=== PATIENT | male | born 1955 | race Caucasian/White ===

== ENCOUNTER 2021-09-25 10:25 | Inpatient (IN) | payer MEDICARE, SELFPAY ==
[2021-09-25] VITALS (7 sets, daily range): BP systolic 131–141; BP diastolic 60–80; PULSE 72–90; RESP 18–22; TEMP 36.4–36.8; O2SAT 92–97; BMI 50.6
--- NOTE | ~2021-09-25 | XR_ITS ---
EXAMINATION: XR CHEST CLINICAL INFORMATION: Hypoxia COMPARISON: Chest x-ray and CTA chest 05/22/2020 TECHNIQUE: Frontal view of the chest was obtained. FINDINGS: Cardiac silhouette is normal in size. Small to moderate right-sided pleural effusion with overlying airspace disease, suspected compressive atelectasis. There is good aeration of the left hemithorax. No left-sided pleural effusion. No pneumothorax bilaterally. Degenerative changes of the spine. XR/XR chest 1V IMPRESSION: [id number] right-sided pleural effusion.
--- NOTE | ~2021-09-25 | XR_ITS ---
EXAMINATION: XR CHEST CLINICAL INFORMATION: Question pneumonia. Worsening effusion. COMPARISON: 09/28/2021 TECHNIQUE: Frontal view of the chest was obtained with an apical lordotic projection. FINDINGS: Small right pleural effusion and associated right basilar opacity are unchanged as compared to prior. No new airspace consolidation. No pneumothorax. Cardiac silhouette is at the upper limits of normal in size. Pulmonary vasculature is normal. No acute osseous findings. Degenerative spondylosis is present in the thoracic spine. XR/XR chest 1V IMPRESSION: Persistent small right pleural effusion with associated right basilar opacity, not significantly changed from 09/28/2021.
--- NOTE | ~2021-09-25 | CT_ITS ---
EXAMINATION: CT CHEST WITHOUT CONTRAST CLINICAL INFORMATION: Hypoxia. Right pleural effusion. COMPARISON: Previous chest x-ray most recent from earlier the same day and chest CTA May 2020 TECHNIQUE: Multidetector volumetric CT imaging of the chest was done. Axial MIP volume rendering provided. Sagittal and coronal reformatted images were obtained. This CT examination was performed using dose optimization techniques as appropriate, variously including the following: *Automated exposure control *Adjustment of mA and/or kV according to patient size (this includes techniques or standardized protocols for targeted exams where dose is matched to indication/reason for exam; i.e. extremities or head) *Use of iterative reconstruction technique DLP: 507 mGy-cm FINDINGS: LUNGS: There is right middle and right lower lobe atelectasis/consolidation adjacent to the right pleural effusion. There is subsegmental atelectasis in the right upper lobe. There is a 3 mm peripheral or subpleural right upper lobe nodule axial image 24 series 5. MEDIASTINUM: The heart is enlarged. There is coronary artery calcification. There is no pericardial effusion. There are small mediastinal lymph nodes. PLEURA: There is a moderate-sized right pleural effusion. There is no left pleural effusion. AXILLA: No lymphadenopathy. UPPER ABDOMEN: Unremarkable. OSSEOUS STRUCTURES: There are degenerative changes of the spine. CT/CT chest wo con IMPRESSION: Enlarged heart. Coronary artery calcification. Moderate right pleural effusion. Right middle and lower lobe atelectasis/consolidation adjacent to the effusion.
--- NOTE | ~2021-09-25 | XR_ITS ---
EXAMINATION: XR CHEST CLINICAL INFORMATION: Endotracheal tube positioning. COMPARISON: Chest radiograph dated from 10/07/2021. TECHNIQUE: AP view of the chest was obtained. FINDINGS: The endotracheal tube terminates at 3 cm above the yue. An enteric tube terminates out of the [id number]. Stable appearance of the cardiomediastinal silhouette. Unchanged right lower lobe airspace opacities and small right pleural effusion. No pneumothorax. The left lung is clear. No acute osseous findings. XR/XR chest 1V IMPRESSION: Endotracheal tube terminates at 3 cm above the yue. Unchanged airspace opacities in the right lung base with stable small right pleural effusion.
--- NOTE | ~2021-09-25 | XR_ITS ---
EXAMINATION: XR CHEST CLINICAL INFORMATION: Line and tube placement. COMPARISON: Chest radiographs 10/03/2021, 09/28/2021 TECHNIQUE: Portable upright AP view of the chest was obtained. FINDINGS: ET tube is positioned approximately 6.3 cm above yue. There is an orogastric tube in the abdomen and extending beyond the inferior film [id number]. Pulmonary opacity right base with effusion similar to prior study. No interval new airspace opacity. Vascularity within normal. The cardiac and hilar and mediastinal contours and bony structures are stable. XR/XR chest 1V IMPRESSION: 1. ET tube 6.3 cm above yue. 2. Orogastric tube in abdomen. 3. Pulmonary opacity and right effusion stable.
--- NOTE | ~2021-09-25 | XR_ITS ---
EXAMINATION: XR CHEST CLINICAL INFORMATION: Hypoxia/hypercapnia COMPARISON: 09/25/2021 TECHNIQUE: Frontal view of the chest was obtained. FINDINGS: Lung volumes are symmetric. Redemonstrated small right pleural effusion with adjacent basilar opacity, mildly improved from prior. Left lung appears well-aerated. No evidence of pneumothorax. The cardiomediastinal contour is unremarkable. No acute osseous findings are seen. XR/XR chest 1V IMPRESSION: Small right pleural effusion and adjacent basilar opacity, mildly improved since 09/25/2021.
--- NOTE | ~2021-09-25 | US_ITS ---
EXAMINATION: US VENOUS ULTRASOUND WITH DOPPLER LOWER EXTREMITY, BILATERAL CLINICAL INFORMATION: Status post cardiac arrest. Assess for acute occult DVT. COMPARISON: Bilateral leg venous ultrasound with Doppler 09/29/2021. TECHNIQUE: Ultrasound of the deep veins is performed from the hip to the calf with compression sonography and color and pulse Doppler assessment. Spectral analysis with color-flow imaging is performed. Exam performed portably in the ICU. FINDINGS: RIGHT: There is normal venous compression and respiratory variation and augmented flow. The visualized common femoral vein, superficial femoral vein, profunda femoral vein, popliteal vein, and the trifurcation region shows no evidence of deep venous thrombosis. No popliteal fossa cyst. LEFT: There is normal venous compression and respiratory variation and augmented flow. The visualized common femoral vein, superficial femoral vein, profunda femoral vein, popliteal vein, and the trifurcation region shows no evidence of deep venous thrombosis. No popliteal fossa cyst. US/US venous duplex LE BI IMPRESSION: No DVT demonstrated in the bilateral lower extremity.
--- NOTE | ~2021-09-25 | US_ITS ---
EXAMINATION: US VENOUS ULTRASOUND WITH DOPPLER LOWER EXTREMITY, BILATERAL CLINICAL INFORMATION: Pain. Edema. COMPARISON: None TECHNIQUE: Ultrasound of the deep veins is performed from the hip to the calf with compression sonography and color and pulse Doppler assessment. Spectral analysis with color-flow imaging is performed. FINDINGS: Limited study due to body habitus. Bilateral peroneal veins not visualized in the calf. RIGHT: There is normal venous compression and respiratory variation and augmented flow. The visualized common femoral vein, superficial femoral vein, profunda femoral vein, popliteal vein, and the trifurcation region shows no evidence of deep venous thrombosis. Vascular flow in the posterior tibial vein of the calf. There is no significant popliteal fossa cyst. LEFT: There is normal venous compression and respiratory variation and augmented flow. The visualized common femoral vein, superficial femoral vein, profunda femoral vein, popliteal vein, and the trifurcation region shows no evidence of deep venous thrombosis. Vascular flow in the posterior tibial vein of the calf. There is no significant popliteal fossa cyst. If the patient's symptoms persist, followup ultrasound in 5 days 7 days might be of value to exclude proximal propagation from a non-visualized calf vein. US/US venous duplex LE BI IMPRESSION: No DVT demonstrated in the bilateral lower extremity.
--- NOTE | 2021-09-25 10:20 | ECG_ITS ---
Test Reason : HYPOGLYCIMIA Blood Pressure : / mmHG Vent. Rate : 072 BPM Atrial Rate : 072 BPM P-R Int : 196 ms QRS Dur : 102 ms QT Int : 424 ms P-R-T Axes : 033 063 055 degrees QTc Int : 464 ms Poor data quality Normal sinus rhythm Intra-ventricular conduction delay Low voltage QRS Abnormal ECG When compared with ECG of 22-MAY-2020 15:39, No significant change was found Heart rate has decreased Referred By: Alfredo Dunn Electronically Signed By:SALVATORE MONTELONGO MD
--- NOTE | 2021-09-25 10:27 | ED.AMS ---
HPI - Altered Mental Status General Chief Complaint: Altered Mental Status Stated Complaint: hypoglycemia Time Seen by Provider: 09/25/21 10:38 Source: EMS Mode of arrival: EMS Limitations: altered mental status History of Present Illness HPI narrative: This is a 66-day-old man that was brought ER by ambulance because altered mental status, was found hypoglycemic pre-hospital blood sugar 40s, he was given glucagon and dextrose IV. The pain ambulance he was also hypoxic initially was placed on 100% non-rebreather mask patient has history also of COPD O2 dependent on 2 L oxygen MD complaint: altered mental status Onset (ago): hour(s) (1) Timing confirmed by: family member Severity: moderate Consistency of symptoms: waxing and waning Context: diabetes Associated symptoms: denies other symptoms Treatments prior to arrival: glucose Related Data Home Medications Medication Instructions Recorded Confirmed aspirin 81 mg tablet,delayed 81 mg PO DAILY 09/25/21 09/25/21 release atorvastatin 20 mg tablet 1 tab PO BEDTIME 09/25/21 09/25/21 budesonide-formoterol HFA 80 2 puff PO BID 09/25/21 09/25/21 mcg-4.5 mcg/actuation aerosol inhaler (Symbicort) finasteride 5 mg tablet 1 tab PO DAILY 09/25/21 09/25/21 insulin glargine 100 unit/mL (3 34 unit SUBCUT BEDTIME 09/25/21 09/25/21 mL) subcutaneous pen (Lantus Solostar U-100 Insulin) insulin lispro 100 unit/mL See Rx Instructions .ROUTE .COMPLEX 09/25/21 09/25/21 subcutaneous pen ipratropium 0.5 mg-albuterol 3 mg 1 vial INHALATION QID 09/25/21 09/25/21 (2.5 mg base)/3 mL nebulization soln lisinopril 40 mg tablet 1 tab PO DAILY 09/25/21 09/25/21 metformin 1,000 mg tablet 1 tab PO BID 09/25/21 09/25/21 metoprolol succinate 25 mg 1 tab PO DAILY 09/25/21 09/25/21 tablet,extended release 24 hr potassium chloride 10 mEq 1 cap PO DAILY 09/25/21 09/25/21 capsule,extended release tamsulosin 0.4 mg capsule 2 cap PO BEDTIME 09/25/21 09/25/21 torsemide 20 mg tablet 3 tab PO BID 09/25/21 09/25/21 Allergies Allergy/AdvReac Type Severity Reaction Status Date / Time adhesive tape [ADHESIVE TAPE] Allergy Unknown RASH Unverified 07/29/20 14:39 Penicillins [PENICILLINS] Allergy Unknown RASH Unverified 07/29/20 14:39 Review of Systems Review of Systems: Yes all other systems are reviewed and are negative Constitutional: Constitutional: Denies fever(s), Denies frequent falls and Denies headache(s) ENT: Denies headache(s) Cardiovascular: Cardiovascular: Reports no additional cardiovascular complaints Respiratory: Respiratory: Reports no additional respiratory complaints Neurologic: Denies frequent falls and Denies headache(s) [facility] Past Medical History Attestation statement: The following information was validated with the patient. [facility] Narrative: DM;COPD 02 Dep Medical History CHF (congestive heart failure) Chronic respiratory failure with hypoxia, on home O2 therapy COPD (chronic obstructive pulmonary disease) Diabetes mellitus Hypertension Morbid obesity Social History Social History (Updated 09/25/21 @ 15:28 by Reji Ballard MD) Alcohol intake: never Patient Tobacco Use Status: Former Tobacco user Use of substances other than those prescribed or required for medical reasons: No Advance Directives: Yes Advance Directives Information Provided: Yes Advance Directives on File: No Physical Exam Vital Signs: Vital Signs: Last Vital Signs Temp 98.2 F 09/25/21 10:28 Pulse 72 09/25/21 10:28 Resp 22 H 09/25/21 10:28 BP 141/60 H 09/25/21 10:28 Pulse Ox 97 09/25/21 10:28 Oxygen Flow Rate 3 09/25/21 10:28 Body Mass Index 50.6 Const: Other: At this time the patient is doing much better he is awake and alert he is on 2 L oxygen is satting 92% General: cooperative Nutritional Appearance: well nourished Orientation/consciousness: patient oriented x3 HENMT: Head: Yes normal to inspection General nose exam: Normal external nose present Face and sinus: Yes normal facial exam Mouth: Normal oral and palatal mucosa present Eyes: General: appearance normal, both eyes and all related structures Neck: Neck: Yes normal visual inspection and Yes full ROM Chest: Chest palpation & inspection: normal inspection of the chest Resp: Effort & Inspection: normal respiratory effort Auscultation: clear to auscultation bilaterally Cardio: Jugular venous distension: no JVD Rate: regular rate Rhythm: regular rhythm GI: Inspection: Yes normal to inspection Palpation (GI): Soft to palpation, not firm, nontender and no guarding Skin: General skin exam: no rashes or lesions noted and elasticity normal Neuro: General: patient oriented x3 Course Reevaluation(s) Reevaluation #1: improved clinically ,appear weak and frail,w/u showed rt pleural effusion ,I think is very reasonable to observe the pt overnight give the episode of hypoglicemia,given the rt pleural effusion the high C02 MDM - Altered Mental Status Lab Data Result diagrams: 09/25/21 10:26 09/25/21 10:26 Labs: Lab Results 09/25/21 09/25/21 09/25/21 Range/Units 10:15 10:26 10:26 WBC 7.1 (4.8-10.8) X10*3/uL RBC 3.83 L (4.60-5.80) X10*6/uL Hgb 10.6 L (14.0-18.0) g/dl Hct 35.3 L (42.0-52.0) % MCV 92.2 (80.0-98.0) fL MCH 27.7 (27.0-33.0) pg MCHC 30.0 L (31.0-36.0) g/dl RDW 13.0 (11.0-16.0) % Plt Count 105 L (160-400) X10*3/uL MPV 11.5 (9.4-12.4) fL Immature Gran % (Auto) 0.4 (0.0-0.4) % Neut % (Auto) 77.9 H (45-73) % Lymph % (Auto) 10.4 L (20-40) % [place] % (Auto) 8.2 (2-11) % Eos % (Auto) 2.7 (0-4) % Baso % (Auto) 0.4 (0-2) % Lymph # (Auto) 0.7 L (1.2-4.9) X10*3/uL [place] # (Auto) 0.6 (0.1-1.2) X10*3/uL Eos # (Auto) 0.2 (0.0-0.4) X10*3/uL Baso # (Auto) 0.0 (0.0-0.2) X10*3/uL Abs Immat Gran (auto) 0.03 (0.00-0.03) X10*3/uL Absolute Neuts (auto) 5.5 (2.0-8.3) x10*3/uL Absolute Nucleated RBC 0.000 (0.0-0.012) X10*3/uL Nucleated RBC % (auto) 0.0 (0.0-0.2) /100WBC Smear Tech's Comments Not Reportable PT (9.9-13.0) SEC INR (0.9-1.1) APTT (24.1-38.0) SEC O2 Saturation % ABG pH at Pt Temp (7.35-7.45) ABG pH (Temp Correct) (7.35-7.45) ABG pCO2 at Pt Temp (32-45) mmHg ABG pCO2 (Temp Corrct (32-45) mmHg ABG pO2 at Pt Temp (83-108) mmHg ABG pO2 (Temp Correct (83-108) ABG HCO3 (22-26) mmol/L ABG Base Excess (Actual) mmol/L Sodium 144 (135-145) mmol/L Potassium 3.5 (3.3-5.1) mmol/L Chloride 87 L (96-108) mmol/L Carbon Dioxide 47 H* (22-29) mmol/L Anion Gap 14 (12-20) BUN 33 H (9-16) mg/dL Creatinine 1.07 (0.5-1.4) mg/dL Estim Creat Clear Calc 85.5 Estimated GFR > 60 POC Glucose 99 (60-115) mg/dL Random Glucose 110 (60-115) mg/dL Calcium 8.7 (8.4-10.2) mg/dL Total Bilirubin 0.4 (0.0-1.0) mg/dL AST 13 (5-37) U/L ALT 16 (0-40) U/L Alkaline Phosphatase 88 (39-117) U/L Troponin I High Sens (<3.5-35.0) ng/L Total Protein 6.1 L (6.5-8.0) g/dL Albumin 3.6 (3.5-5.0) g/dL Influenza Type A (PCR) (Negative) Influenza Type B (PCR) (Negative) RSV RNA Qual (PCR) (Negative) SARS-CoV-2 RNA (RT-PCR) (Negative) 09/25/21 09/25/21 09/25/21 Range/Units 10:26 12:03 12:08 WBC (4.8-10.8) X10*3/uL RBC (4.60-5.80) X10*6/uL Hgb (14.0-18.0) g/dl Hct (42.0-52.0) % MCV (80.0-98.0) fL MCH (27.0-33.0) pg MCHC (31.0-36.0) g/dl RDW (11.0-16.0) % Plt Count (160-400) X10*3/uL MPV (9.4-12.4) fL Immature Gran % (Auto) (0.0-0.4) % Neut % (Auto) (45-73) % Lymph % (Auto) (20-40) % [place] % (Auto) (2-11) % Eos % (Auto) (0-4) % Baso % (Auto) (0-2) % Lymph # (Auto) (1.2-4.9) X10*3/uL [place] # (Auto) (0.1-1.2) X10*3/uL Eos # (Auto) (0.0-0.4) X10*3/uL Baso # (Auto) (0.0-0.2) X10*3/uL Abs Immat Gran (auto) (0.00-0.03) X10*3/uL Absolute Neuts (auto) (2.0-8.3) x10*3/uL Absolute Nucleated RBC (0.0-0.012) X10*3/uL Nucleated RBC % (auto) (0.0-0.2) /100WBC Smear Tech's Comments PT (9.9-13.0) SEC INR (0.9-1.1) APTT (24.1-38.0) SEC O2 Saturation 94.0 % ABG pH at Pt Temp 7.41 (7.35-7.45) ABG pH (Temp Correct) 7.41 (7.35-7.45) ABG pCO2 at Pt Temp 91 H* (32-45) mmHg ABG pCO2 (Temp Corrct 90 H* (32-45) mmHg ABG pO2 at Pt Temp 75 L (83-108) mmHg ABG pO2 (Temp Correct 74 L (83-108) ABG HCO3 58 H (22-26) mmol/L ABG Base Excess (Actual) 27.9 mmol/L Sodium (135-145) mmol/L Potassium (3.3-5.1) mmol/L Chloride (96-108) mmol/L Carbon Dioxide (22-29) mmol/L Anion Gap (12-20) BUN (9-16) mg/dL Creatinine (0.5-1.4) mg/dL Estim Creat Clear Calc Estimated GFR POC Glucose (60-115) mg/dL Random Glucose (60-115) mg/dL Calcium (8.4-10.2) mg/dL Total Bilirubin (0.0-1.0) mg/dL AST (5-37) U/L ALT (0-40) U/L Alkaline Phosphatase (39-117) U/L Troponin I High Sens 8.5 (<3.5-35.0) ng/L Total Protein (6.5-8.0) g/dL Albumin (3.5-5.0) g/dL Influenza Type A (PCR) NEGATIVE (Negative) Influenza Type B (PCR) NEGATIVE (Negative) RSV RNA Qual (PCR) NEGATIVE (Negative) SARS-CoV-2 RNA (RT-PCR) NEGATIVE (Negative) 09/25/21 Range/Units 12:11 WBC (4.8-10.8) X10*3/uL RBC (4.60-5.80) X10*6/uL Hgb (14.0-18.0) g/dl Hct (42.0-52.0) % MCV (80.0-98.0) fL MCH (27.0-33.0) pg MCHC (31.0-36.0) g/dl RDW (11.0-16.0) % Plt Count (160-400) X10*3/uL MPV (9.4-12.4) fL Immature Gran % (Auto) (0.0-0.4) % Neut % (Auto) (45-73) % Lymph % (Auto) (20-40) % [place] % (Auto) (2-11) % Eos % (Auto) (0-4) % Baso % (Auto) (0-2) % Lymph # (Auto) (1.2-4.9) X10*3/uL [place] # (Auto) (0.1-1.2) X10*3/uL Eos # (Auto) (0.0-0.4) X10*3/uL Baso # (Auto) (0.0-0.2) X10*3/uL Abs Immat Gran (auto) (0.00-0.03) X10*3/uL Absolute Neuts (auto) (2.0-8.3) x10*3/uL Absolute Nucleated RBC (0.0-0.012) X10*3/uL Nucleated RBC % (auto) (0.0-0.2) /100WBC Smear Tech's Comments PT 11.8 (9.9-13.0) SEC INR 1.0 (0.9-1.1) APTT 40.4 H (24.1-38.0) SEC O2 Saturation % ABG pH at Pt Temp (7.35-7.45) ABG pH (Temp Correct) (7.35-7.45) ABG pCO2 at Pt Temp (32-45) mmHg ABG pCO2 (Temp Corrct (32-45) mmHg ABG pO2 at Pt Temp (83-108) mmHg ABG pO2 (Temp Correct (83-108) ABG HCO3 (22-26) mmol/L ABG Base Excess (Actual) mmol/L Sodium (135-145) mmol/L Potassium (3.3-5.1) mmol/L Chloride (96-108) mmol/L Carbon Dioxide (22-29) mmol/L Anion Gap (12-20) BUN (9-16) mg/dL Creatinine (0.5-1.4) mg/dL Estim Creat Clear Calc Estimated GFR POC Glucose (60-115) mg/dL Random Glucose (60-115) mg/dL Calcium (8.4-10.2) mg/dL Total Bilirubin (0.0-1.0) mg/dL AST (5-37) U/L ALT (0-40) U/L Alkaline Phosphatase (39-117) U/L Troponin I High Sens (<3.5-35.0) ng/L Total Protein (6.5-8.0) g/dL Albumin (3.5-5.0) g/dL Influenza Type A (PCR) (Negative) Influenza Type B (PCR) (Negative) RSV RNA Qual (PCR) (Negative) SARS-CoV-2 RNA (RT-PCR) (Negative) Imaging Data Chest x-ray: Radiologist's impression: CLINICAL INFORMATION: Hypoxia COMPARISON: Chest x-ray and CTA chest 05/22/2020 TECHNIQUE: Frontal view of the chest was obtained. FINDINGS: Cardiac silhouette is normal in size. Small to moderate right-sided pleural effusion with overlying airspace disease, suspected compressive atelectasis. There is good aeration of the left hemithorax. No left-sided pleural effusion. No pneumothorax bilaterally. Degenerative changes of the spine. XR/XR chest 1V IMPRESSION: [id number] right-sided pleural effusion. ? Dictated By: EMANUEL MAHONEY MD Signed By: <Electronically s ECG Data ECG #1: Attestation: I personally reviewed and interpreted this ECG as follows: ECG interpretation date: 09/25/21 ECG interpretation time: 11:48 Pacemaker model: nsr 72 no ischemic changes Attending Attestation NSR 80 no ischemic changes Discharge Plan Discharge Clinical Impression: Insulin adverse reaction, Pleural effusion on right, Hypoglycemia due to insulin Prescriptions: No Action potassium chloride 10 mEq capsule, extended release 1 cap PO DAILY RF: 0 atorvastatin 20 mg tablet 1 tab PO BEDTIME RF: 0 ipratropium-albuterol 0.5 mg-3 mg(2.5 mg base)/3 mL solution for nebulization 1 vial inhalation QID RF: 0 torsemide 20 mg tablet 3 tab PO BID RF: 0 tamsulosin 0.4 mg capsule 2 cap PO BEDTIME RF: 0 metformin 1,000 mg tablet 1 tab PO BID RF: 0 metoprolol succinate 25 mg tablet extended release 24 hr 1 tab PO DAILY RF: 0 lisinopril 40 mg tablet 1 tab PO DAILY RF: 0 finasteride 5 mg tablet 1 tab PO DAILY RF: 0 insulin lispro 100 unit/mL insulin pen See Rx Instructions .ROUTE .COMPLEX RF: 0 budesonide-formoterol [Symbicort] 80-4.5 mcg/actuation HFA aerosol inhaler 2 puff PO BID RF: 0 Lantus Solostar U-100 Insulin 100 unit/mL (3 mL) insulin pen 34 unit subcut BEDTIME RF: 0 aspirin 81 mg Tablet,Delayed Release (Dr/Ec) 81 mg PO DAILY RF: 0
[2021-09-25 10:36] LABS: Basophils Percent Auto 0.4 % (0-2); Hemoglobin 10.6 g/dl (14.0-18.0); MANUAL DIFF FLAG SCAN; PLT CLUMP 1; SCAN SMEAR FLAG 1
[2021-09-25 10:38] LABS: Eosinophils Absolute Auto 0.2 X10*3/uL (0.0-0.4); Eosinophils Percent Auto 2.7 % (0-4); Hematocrit 35.3 % (42.0-52.0); Imm Gran Abs Auto 0.03 X10*3/uL (0.00-0.03); Imm Gran Pct Auto 0.4 % (0.0-0.4); Lymphocytes Absolute Auto 0.7 X10*3/uL (1.2-4.9); Lymphocytes Percent Auto 10.4 % (20-40); Mean Corpuscular Hemoglobin 27.7 pg (27.0-33.0); Mean Corpuscular Volume 92.2 fL (80.0-98.0); Mean Platelet Volume 11.5 fL (9.4-12.4); Monocytes Absolute Auto 0.6 X10*3/uL (0.1-1.2); Monocytes Percent Auto 8.2 % (2-11); Neutrophils Absolute Auto 5.5 x10*3/uL (2.0-8.3); Neutrophils Percent Auto 77.9 % (45-73); Red Blood Count 3.83 X10*6/uL (4.60-5.80); White Blood Count 7.1 X10*3/uL (4.8-10.8)
[2021-09-25 10:41] LABS: Platelet Count 105 X10*3/uL (160-400)
[2021-09-25 11:34] LABS: Troponin-I High Sensitivity 8.5 ng/L (<3.5-35.0)
[2021-09-25 11:35] LABS: Alanine Aminotransferase 16 U/L (0-40); Albumin Level 3.6 g/dL (3.5-5.0); Alkaline Phosphatase 88 U/L (39-117); Anion Gap 14 (12-20); Aspartate Amino Transferase 13 U/L (5-37); Bilirubin Total 0.4 mg/dL (0.0-1.0); Blood Urea Nitrogen 33 mg/dL (9-16); Calcium 8.7 mg/dL (8.4-10.2); Carbon Dioxide 47 mmol/L (22-29); Chloride 87 mmol/L (96-108); Creatinine Clr Calc Pharmacy 85.5; Estimated Glomerular Filt Rate > 60; Glucose Random 110 mg/dL (60-115); Potassium 3.5 mmol/L (3.3-5.1); Sodium 144 mmol/L (135-145); Total Protein 6.1 g/dL (6.5-8.0)
[2021-09-25 11:49] LABS: Glucose, Whole Blood 99 mg/dL (60-115)
[2021-09-25 12:10] LABS: ABG Base Excess 27.9 mmol/L; ABG HCO3 58 mmol/L (22-26); ABG pCO2 91 mmHg (32-45); ABG pCO2 TC 90 mmHg (32-45); ABG pH 7.41 (7.35-7.45); ABG pH TC 7.41 (7.35-7.45); ABG pO2 75 mmHg (83-108); ABG pO2 TC 74 (83-108)
[2021-09-25 12:28] LABS: Prothrombin Time 11.8 SEC (9.9-13.0)
[2021-09-25 12:31] LABS: Partial Thromboplastin Time 40.4 SEC (24.1-38.0)
[2021-09-25 13:01] LABS: Influenza A PCR NEGATIVE (Negative); Influenza B PCR NEGATIVE (Negative); Resp Syncy Virus RNA Qual PCR NEGATIVE (Negative); SARS COV2 PCR INHOUSE NEGATIVE (Negative)
--- NOTE | 2021-09-25 15:24 | P.HPHOSP_ITS ---
History of Present Illness Date of Service: 09/25/21 Chief Complaint: ams 66M presented with AMS. patient had been feeling at baseline on day prior to presentation. he reports that he has been trying to eat less in order to lose weight. on night prior to presentation he took his lantus but did not eat nearly as much as he usually dose. the next morning his found him lethargic to the point where she had difficulty getting him to stay awake, so she called EMS, EMS found sugar to be 40, and patient hypoxic. they gave glucagon and oxygen. patient then became more alert. in ED found to have metabolic alkalosis with respiratory acidosis, ph 7.41, pco2 91, bicarb 47. CT chest showed Right sided atelectasis and effusion. Review of Systems Review of Systems: Constitutional: Denies fever, denies Chills Eyes: denies blurry vision ENT: denies sore throat CVS: denies chest pain Respiratory: Denies dyspnea GI: no abdominal pain : denies dysuria MSK: denies neck pain Skin: denies rash Neuro: denies specific motor weakness Psych: denies suicidal ideation Endocrine: denies heat/cold intolerance Hematologic: denies easy bleeding Allergy: denies hives [facility] [place] Medical History CHF (congestive heart failure) Chronic respiratory failure with hypoxia, on home O2 therapy COPD (chronic obstructive pulmonary disease) Diabetes mellitus Hypertension Morbid obesity Pertinent family history: denies CAD Social History (Updated 09/25/21 @ 15:28 by Reji Ballard MD) Alcohol intake: never Patient Tobacco Use Status: Former Tobacco user Use of substances other than those prescribed or required for medical reasons: No Advance Directives: Yes Advance Directives Information Provided: Yes Advance Directives on File: No Meds Allergies Allergy/AdvReac Type Severity Reaction Status Date / Time adhesive tape [ADHESIVE TAPE] Allergy Unknown RASH Unverified 07/29/20 14:39 Penicillins [PENICILLINS] Allergy Unknown RASH Unverified 07/29/20 14:39 Active Medications: Current Medications Acetazolamide (Acetazolamide Sodium 500 Mg Vial) 250 mg IVPUSH Q12H [facility] Pharmacy Consult (Consult Rx Perform Med Rec) 1 each MISCELLANE ONCE PRN PRN Reason: Consult order Home Medications Medication Instructions Recorded Confirmed Last Taken Type aspirin 81 mg tablet,delayed 81 mg PO DAILY 09/25/21 09/25/21 09/24/21 History release atorvastatin 20 mg tablet 1 tab PO BEDTIME 09/25/21 09/25/21 09/24/21 History budesonide-formoterol HFA 80 2 puff PO BID 09/25/21 09/25/21 09/24/21 History mcg-4.5 mcg/actuation aerosol inhaler (Symbicort) finasteride 5 mg tablet 1 tab PO DAILY 09/25/21 09/25/21 09/24/21 History insulin glargine 100 unit/mL (3 34 unit SUBCUT BEDTIME 09/25/21 09/25/21 09/24/21 History mL) subcutaneous pen (Lantus Solostar U-100 Insulin) insulin lispro 100 unit/mL See Rx Instructions .ROUTE .COMPLEX 09/25/21 09/25/21 09/24/21 History subcutaneous pen ipratropium 0.5 mg-albuterol 3 mg 1 vial INHALATION QID 09/25/21 09/25/21 09/24/21 History (2.5 mg base)/3 mL nebulization soln lisinopril 40 mg tablet 1 tab PO DAILY 09/25/21 09/25/21 09/24/21 History metformin 1,000 mg tablet 1 tab PO BID 09/25/21 09/25/21 09/24/21 History metoprolol succinate 25 mg 1 tab PO DAILY 09/25/21 09/25/21 09/24/21 History tablet,extended release 24 hr potassium chloride 10 mEq 1 cap PO DAILY 09/25/21 09/25/21 09/24/21 History capsule,extended release tamsulosin 0.4 mg capsule 2 cap PO BEDTIME 09/25/21 09/25/21 09/24/21 History torsemide 20 mg tablet 3 tab PO BID 09/25/21 09/25/21 09/24/21 History Physical Exam Vital Signs and Narrative: Vital Signs: Last Vital Signs Temp 98.2 F 09/25/21 10:28 Pulse 72 09/25/21 10:28 Resp 22 H 09/25/21 10:28 BP 141/60 H 09/25/21 10:28 Pulse Ox 97 09/25/21 10:28 Oxygen Flow Rate 3 09/25/21 10:28 Body Mass Index 50.6 General: no acute distress, obese HEENT: atraumatic, poor dentition Neck: thick, normal to visual inspection CVS: S1, S2, RRR, 3+ bilateral lower extremity edema Resp: diminshed right base, bilateral crackles Chest: non tender GI: soft, non tender, non distended : no CVA tenderness Skin: no rashes Extremities: 3+ edema Neuro: Oriented X3, grossly intact Psych: cooperative Results Labs CBC and Chem 7: 09/25/21 10:26 09/25/21 10:26 Labs: Laboratory Results - last 24 hr 09/25/21 09/25/21 09/25/21 10:15 10:26 10:26 MCV 92.2 MCH 27.7 MCHC 30.0 L RDW 13.0 Plt Count 105 L MPV 11.5 Immature Gran % (Auto) 0.4 Neut % (Auto) 77.9 H Lymph % (Auto) 10.4 L [place] % (Auto) 8.2 Eos % (Auto) 2.7 Baso % (Auto) 0.4 Lymph # (Auto) 0.7 L [place] # (Auto) 0.6 Eos # (Auto) 0.2 Baso # (Auto) 0.0 Abs Immat Gran (auto) 0.03 Absolute Neuts (auto) 5.5 Absolute Nucleated RBC 0.000 Nucleated RBC % (auto) 0.0 Smear Tech's Comments Not Reportable PT INR APTT O2 Saturation ABG pH at Pt Temp ABG pH (Temp Correct) ABG pCO2 at Pt Temp ABG pCO2 (Temp Corrct ABG pO2 at Pt Temp ABG pO2 (Temp Correct ABG HCO3 ABG Base Excess (Actual) Anion Gap 14 Estim Creat Clear Calc 85.5 Estimated GFR > 60 POC Glucose 99 Random Glucose 110 Calcium 8.7 Total Bilirubin 0.4 AST 13 ALT 16 Alkaline Phosphatase 88 Troponin I High Sens Total Protein 6.1 L Albumin 3.6 Influenza Type A (PCR) Influenza Type B (PCR) RSV RNA Qual (PCR) SARS-CoV-2 RNA (RT-PCR) 09/25/21 09/25/21 09/25/21 10:26 12:03 12:08 MCV MCH MCHC RDW Plt Count MPV Immature Gran % (Auto) Neut % (Auto) Lymph % (Auto) [place] % (Auto) Eos % (Auto) Baso % (Auto) Lymph # (Auto) [place] # (Auto) Eos # (Auto) Baso # (Auto) Abs Immat Gran (auto) Absolute Neuts (auto) Absolute Nucleated RBC Nucleated RBC % (auto) Smear Tech's Comments PT INR APTT O2 Saturation 94.0 ABG pH at Pt Temp 7.41 ABG pH (Temp Correct) 7.41 ABG pCO2 at Pt Temp 91 H* ABG pCO2 (Temp Corrct 90 H* ABG pO2 at Pt Temp 75 L ABG pO2 (Temp Correct 74 L ABG HCO3 58 H ABG Base Excess (Actual) 27.9 Anion Gap Estim Creat Clear Calc Estimated GFR POC Glucose Random Glucose Calcium Total Bilirubin AST ALT Alkaline Phosphatase Troponin I High Sens 8.5 Total Protein Albumin Influenza Type A (PCR) NEGATIVE Influenza Type B (PCR) NEGATIVE RSV RNA Qual (PCR) NEGATIVE SARS-CoV-2 RNA (RT-PCR) NEGATIVE 09/25/21 12:11 MCV MCH MCHC RDW Plt Count MPV Immature Gran % (Auto) Neut % (Auto) Lymph % (Auto) [place] % (Auto) Eos % (Auto) Baso % (Auto) Lymph # (Auto) [place] # (Auto) Eos # (Auto) Baso # (Auto) Abs Immat Gran (auto) Absolute Neuts (auto) Absolute Nucleated RBC Nucleated RBC % (auto) Smear Tech's Comments PT 11.8 INR 1.0 APTT 40.4 H O2 Saturation ABG pH at Pt Temp ABG pH (Temp Correct) ABG pCO2 at Pt Temp ABG pCO2 (Temp Corrct ABG pO2 at Pt Temp ABG pO2 (Temp Correct ABG HCO3 ABG Base Excess (Actual) Anion Gap Estim Creat Clear Calc Estimated GFR POC Glucose Random Glucose Calcium Total Bilirubin AST ALT Alkaline Phosphatase Troponin I High Sens Total Protein Albumin Influenza Type A (PCR) Influenza Type B (PCR) RSV RNA Qual (PCR) SARS-CoV-2 RNA (RT-PCR) Imaging Radiologist's Impressions: Impressions Chest X-Ray 09/25/21 10:19 IMPRESSION: [id number] right-sided pleural effusion. Chest CT 09/25/21 12:19 IMPRESSION: Enlarged heart. Coronary artery calcification. Moderate right pleural effusion. Right middle and lower lobe atelectasis/consolidation adjacent to the effusion. Assessment and Plan (1) Chronic respiratory failure with hypoxia, on home O2 therapy: Status: Acute (2) Morbid obesity: Status: Acute (3) Pleural effusion on right: Status: Acute (4) COPD (chronic obstructive pulmonary disease): Status: Acute (5) Diabetes mellitus: Status: Acute 66M presented with AMS metabolic encephalopathy due to DM with hypoglycemia and Co2 narcosis now close to baseline mointor poc, will do sliding scale alone for now acute on chronic hypoxic and hypercapneic respiratory failure due to copd and likely OHS patient does not tolerate NIV, will give diamox, monitor bmp, pulm eval inhaled steroid/LABA metabolic alkalosis due to contraction from diuretics will switch to diamox for now and gently hydrate with NS 50cc/hr, monitor bph proscar flomax htn lisinopril toprol right pleural effusion likely chronic, will obtain records from [facility] dvt prophylaxis - lovenox full code Quality Stroke Does the patient have a stroke diagnosis?: No VTE Prior VTE?: No VTE Risk Level:: Medical - moderate - high VTE Device Contraindication: Treatment Not Indicated VTE Drug Contraindication: N/A - Med Ordered
--- NOTE | 2021-09-25 15:27 | PHA.MEDREC ---
Pharmacy Consult ? Medication Reconciliation Pharmacy has completed the medication reconciliation. Spoke to patient and
[2021-09-25] MEDS: Aspirin Enteric Coated 81 MG TABLET.DR PO (16:08)
[2021-09-25] MEDS: lisinopriL 40 MG TABLET PO (16:08)
[2021-09-25] MEDS: Metoprolol Succinate ER 25 MG TAB.ER.24H PO (16:08)
[2021-09-25] MEDS: Enoxaparin Sodium 40 MG/0.4 ML SYRINGE SUBCUT (16:09)
[2021-09-25] MEDS: Finasteride 5 MG TABLET PO (16:14)
[2021-09-25] MEDS: Fluticasone/Vilanterol 100/25 BLST.W.DEV 1 PUFF INHALE (16:14)
[2021-09-25] MEDS: acetaZOLAMIDE sodium 500 MG VIAL 250 MG IVPUSH (16:14)
[2021-09-25] MEDS: Albuterol/Iprat 2.5/0.5MG 3 ML AMPUL.NEB INHALE ×2 (16:48→20:01)
[2021-09-25] MEDS: 0.9 % Sodium Chloride 1,000 ML 50 ML IVCONT (16:49)
--- NOTE | 2021-09-25 19:22 | PC.NURSE ---
Addendum entered by Surinder Cannon 09/25/21 19:37: PT POC obtained and found to be 56. PT found to be sitting on the side of the bed, complaining of shakiness and generally not feeling himself . PT provided with snacks and orange juice to help increase blood sugar. PT VSS, no other complaints at this time. Original Note: PT POC obtained and found to be 54. PT found to be sitting on the side of the bed, complaining of shakiness and generally not feeling himself . PT provided with snacks and orange juice to help increase blood sugar. PT VSS, no other complaints at this time.
--- NOTE | 2021-09-25 19:39 | PC.NURSE ---
PT not given insulin due to low blood sugar reading at 56.
[2021-09-25 19:40] LABS: Glucose, Whole Blood 56 mg/dL (60-115)
[2021-09-25 19:40] LABS: Glucose, Whole Blood 54 mg/dL (60-115)
[2021-09-25 20:19] LABS: Glucose, Whole Blood 107 mg/dL (60-115)
--- NOTE | 2021-09-25 20:20 | PC.NURSE ---
PT POC rechecked. POC found to be 107. PT is resting in bed comfortably, requesting a something to eat. This nurse tried to provide sandwich but none were available in the ED.
--- NOTE | 2021-09-25 22:02 | PC.NURSE ---
POC rechecked; 140 at this time.
[2021-09-25] MEDS: Tamsulosin HCL 0.4 MG CAPSULE 0.8 MG PO (22:03)
[2021-09-25] MEDS: Atorvastatin Calcium 20 MG TABLET PO (22:03)
[2021-09-25 22:08] LABS: Glucose, Whole Blood 140 mg/dL (60-115)
--- NOTE | 2021-09-25 22:49 | PC.NURSE ---
PT moving in and out of bed to use urinal. PT experienced decreased O2 sat when moving back into bed. O2 dropped down to 80% while on 3 L/min. PT monitored for a few minutes back in bed. O2 increased to 92% on 3 L/min O2.
[2021-09-26] VITALS (11 sets, daily range): BP systolic 110–144; BP diastolic 43–97; PULSE 76–88; RESP 18–20; TEMP 36.2–37.1; O2SAT 85–93; BMI 50.6
[2021-09-26] MEDS: acetaZOLAMIDE sodium 500 MG VIAL 250 MG IVPUSH ×3 (00:44→15:51)
[2021-09-26] MEDS: 0.9 % Sodium Chloride Flush 3 ML SYRINGE IVFLUSH ×4 (00:44→21:05)
[2021-09-26 00:49] LABS: Glucose, Whole Blood 138 mg/dL (60-115)
--- NOTE | 2021-09-26 02:00 | PC.NURSE ---
Pt wakes in bed, ringing call kelly, found laying in bed, struggling to get OOB himself. Adam RN at bedside, assisting pt up and into a standing position. Pt reporting SOB, states my right nostril is blocked, there is no oxygen getting through! O2 sat @ 85% on 3 lpm. O2 increased to 4 lpm, pt assisted into a sitting position on edge of bed, able to catch his breath, reports some relief of SOB, O2 sat increasing to 93%. Pt assisted back into bed into POC.
--- NOTE | 2021-09-26 02:06 | PC.NURSE ---
Addendum entered by Re Duran 09/26/21 02:25: Original note documented by RYAN Medina under RYAN Grimaldo by mistake. Original Note: PT rang call kelly and complaining of SOB while lying in bed. PT stated that he is able to catch his breath easier when he is sitting on the edge of the bed. PT was assisted to sit on the side of bed, O2 sat at 80% initially, oxygen increased to 4 L/min, O2 sat is currently at 93%. PT is requesting a recliner to help him breath more comfortably while trying to sleep.
--- NOTE | 2021-09-26 06:41 | PC.NURSE ---
Pt wakes in bed, ringing call bed. This nurse at bedside, pt states Can you check my blood sugar? I feel weird, I think my sugar is low or maybe I am just tired. POC noted to be 82 mg/dl. Pt sitting upright on the edge of bed, in POC, awaiting breakfast at this time.
[2021-09-26 06:42] LABS: Glucose, Whole Blood 82 mg/dL (60-115)
--- NOTE | 2021-09-26 06:49 | PC.NURSE ---
450 ml of UO noted in agar[place]. While eating/drinking, pt desatted to 88%, pt recovers quickly with rest. Awaiting breakfast.
[2021-09-26 06:53] LABS: PLT CLUMP 1
[2021-09-26 06:55] LABS: Hematocrit 36.9 % (42.0-52.0); Mean Corpuscular HGB Conc 29.8 g/dl (31.0-36.0); Mean Corpuscular Hemoglobin 26.8 pg (27.0-33.0); Mean Corpuscular Volume 89.8 fL (80.0-98.0); Mean Platelet Volume 11.8 fL (9.4-12.4); Platelet Count 116 X10*3/uL (160-400); Red Blood Count 4.11 X10*6/uL (4.60-5.80); Red Cell Distribution Width 13.2 % (11.0-16.0); White Blood Count 7.1 X10*3/uL (4.8-10.8)
[2021-09-26 07:21] LABS: Glucose, Whole Blood 95 mg/dL (60-115)
[2021-09-26 07:37] LABS: Anion Gap 11 (12-20); Blood Urea Nitrogen 30 mg/dL (9-16); Calcium 9.1 mg/dL (8.4-10.2); Carbon Dioxide 46 mmol/L (22-29); Chloride 89 mmol/L (96-108); Creatinine Clr Calc Pharmacy 88.8; Estimated Glomerular Filt Rate > 60; Glucose Fasting 94 mg/dL (60-99); Magnesium 2.2 mg/dL (1.6-2.6); Potassium 3.9 mmol/L (3.3-5.1); Sodium 143 mmol/L (135-145)
--- NOTE | 2021-09-26 07:39 | PC.NURSE ---
Addendum entered by Janeth العلي RN 09/26/21 07:53: correction carbon dioxide-46 Addendum entered by Janeth العلي RN 09/26/21 07:47: hr-80 rr-22 o2sat 89% on 4l nasal cannula. Original Note: Patient alert and oriented x 3. Patients o2sats 86-93% on 4 liters goes down with activity. Patient denies pain. Patient lives at home with his . bicarb just called at 47 MD aware. bp 107/81 right forearm. tele: sinus rythym report given to [facility] nurse. Will continue to monitor.
[2021-09-26 08:36] LABS: Glucose, Whole Blood 136 mg/dL (60-115)
--- NOTE | 2021-09-26 08:41 | MHC.CM.PN ---
CM met with Patient at bedside and addressed IMM, providing him with the original and placing a copy in the chart.Patient lives in a house with his , with 3 adult children living upstairs in the same house.Patient states that his /HCP/Maryann is his Primary Caregiver, who takes good care of him and he therefor does not request VNA.CM has initiated and will follow for dc planning.Patient has a walker, Patricia for O2 and PCP is DR.Antone Hill.
[2021-09-26 09:07] LABS: ABG HCO3 59 mmol/L (22-26); ABG pCO2 96 mmHg (32-45); ABG pCO2 TC 93 mmHg (32-45); ABG pH 7.39 (7.35-7.45); ABG pO2 66 mmHg (83-108); ABG pO2 TC 63 (83-108)
[2021-09-26] MEDS: Aspirin Enteric Coated 81 MG TABLET.DR PO (09:20)
[2021-09-26] MEDS: Finasteride 5 MG TABLET PO (09:20)
[2021-09-26] MEDS: Metoprolol Succinate ER 25 MG TAB.ER.24H PO (09:23)
[2021-09-26 09:33] LABS: ABG Refer to POC result
--- NOTE | 2021-09-26 10:23 | HO.PM.IMPN ---
Subjective Subjective Date of Service: 09/26/21 Interval History: cc: ams interval history: back to baseline Cardiovascular Cardiovascular: Reports no additional cardiovascular complaints Respiratory Respiratory: Reports no additional respiratory complaints Physical Exam Vital Signs: Vital Signs: Last Vital Signs Temp 98.6 F 09/26/21 08:00 Pulse 80 09/26/21 09:23 Resp 18 09/26/21 08:00 BP 119/64 09/26/21 09:23 Pulse Ox 90 L 09/26/21 08:00 Oxygen Flow Rate 3 09/25/21 10:28 Body Mass Index 50.6 General: AO X 3, mildly dyspneic Resp: Crackles bilateral, mild accessory muscles used CVS: S1,S2,RRR, 3+ edema GI: soft, non tender, non distended Neuro: motor grossly intact, alert Psych: appropriate affect, appropriate insight Objective Data Active Medications Acetaminophen (Acetaminophen 325 Mg Tablet) 650 mg PO Q6H PRN PRN Reason: Pain, Mild (Pain Scale 1-3) Acetazolamide (Acetazolamide Sodium 500 Mg Vial) 250 mg IVPUSH Q8H [facility] Last Admin: 09/26/21 09:15 Dose: 250 mg Documented by: CUCA Albuterol/Ipratropium (Albuterol/Iprat 2.5/0.5mg 3 Ml Ampul.Neb) 3 ml INHALE RQID [facility] Last Admin: 09/26/21 09:25 Dose: Not Given Documented by: CUCA Non-Admin Reason: off unit Aspirin (Aspirin Enteric Coated 81 Mg Tablet.) 81 mg PO DAILY [facility] Last Admin: 09/26/21 09:20 Dose: 81 mg Documented by: CUCA Atorvastatin Calcium (Atorvastatin Calcium 20 Mg Tablet) 20 mg PO BEDTIME [facility] Last Admin: 09/25/21 22:03 Dose: 20 mg Documented by: KIERAN Dextrose (Dextrose 50 % 25 Gm/50 Ml Vial) 25 gm IVPUSH Q15M PRN; Protocol PRN Reason: per Hypoglycemia Standing Ord. Enoxaparin Sodium (Enoxaparin Sodium 40 Mg/0.4 Ml Syringe) 40 mg SUBCUT Q24H [facility] Last Admin: 09/25/21 16:09 Dose: 40 mg Documented by: VINCENT Finasteride (Finasteride 5 Mg Tablet) 5 mg PO DAILY [facility] Last Admin: 09/26/21 09:20 Dose: 5 mg Documented by: CUCA Fluticasone/Vilanterol (Fluticasone/Vilanterol 100/25 Blst.W.Dev) 1 puff INHALE RDAILY [facility] Last Admin: 09/26/21 09:25 Dose: Not Given Documented by: CUCA Non-Admin Reason: off unit Glucose (Glucose Gel 15 Gm Gel..Gram.) 15 gm PO Q15M PRN; Protocol PRN Reason: per Hypoglycemia Standing Ord. Insulin Human Lispro (Insulin Lispro 100 Unit/Ml 3 Ml Vial) 0 unit SUBCUT QIDACHS [facility]; Protocol Last Admin: 09/26/21 07:30 Dose: Not Given Documented by: NARENDRA Non-Admin Reason: See Note Comments: poc 92 Metoprolol Succinate (Metoprolol Succinate Er 25 Mg Tab.Er.24h) 25 mg PO DAILY [facility]; Protocol Last Admin: 09/26/21 09:23 Dose: 25 mg Documented by: CUCA Pharmacy Consult (Consult Rx Perform Med Rec) 1 each MISCELLANE ONCE PRN PRN Reason: Consult order Potassium Chloride (Potassium Chloride Er 10 Meq Capsule.Er) 10 meq PO DAILY [facility] Last Admin: 09/26/21 09:20 Dose: 10 meq Documented by: CUCA Sodium Chloride (0.9 % Sodium Chloride Flush 3 Ml Syringe) 3 ml IVFLUSH QSHIFT [facility] Last Admin: 09/26/21 09:15 Dose: 3 ml Documented by: CUCA Tamsulosin HCl (Tamsulosin Hcl 0.4 Mg Capsule) 0.8 mg PO BEDTIME [facility] Last Admin: 09/25/21 22:03 Dose: 0.8 mg Documented by: KIERAN Labs CBC & Chem 7: 09/26/21 06:46 09/26/21 06:46 Labs: Laboratory Results - last 24 hr 09/25/21 09/25/21 09/25/21 10:15 10:26 10:26 MCV 92.2 MCH 27.7 MCHC 30.0 L RDW 13.0 Plt Count 105 L MPV 11.5 Immature Gran % (Auto) 0.4 Neut % (Auto) 77.9 H Lymph % (Auto) 10.4 L [place] % (Auto) 8.2 Eos % (Auto) 2.7 Baso % (Auto) 0.4 Lymph # (Auto) 0.7 L [place] # (Auto) 0.6 Eos # (Auto) 0.2 Baso # (Auto) 0.0 Abs Immat Gran (auto) 0.03 Absolute Neuts (auto) 5.5 Absolute Nucleated RBC 0.000 Nucleated RBC % (auto) 0.0 Smear Tech's Comments Not Reportable PT INR APTT O2 Saturation ABG pH at Pt Temp ABG pH (Temp Correct) ABG pCO2 at Pt Temp ABG pCO2 (Temp Corrct ABG pO2 at Pt Temp ABG pO2 (Temp Correct ABG HCO3 ABG Base Excess (Actual) Anion Gap 14 Estim Creat Clear Calc 85.5 Estimated GFR > 60 POC Glucose 99 Random Glucose 110 Fasting Glucose Calcium 8.7 Magnesium Total Bilirubin 0.4 AST 13 ALT 16 Alkaline Phosphatase 88 Troponin I High Sens Total Protein 6.1 L Albumin 3.6 Influenza Type A (PCR) Influenza Type B (PCR) RSV RNA Qual (PCR) SARS-CoV-2 RNA (RT-PCR) 09/25/21 09/25/21 09/25/21 10:26 12:03 12:08 MCV MCH MCHC RDW Plt Count MPV Immature Gran % (Auto) Neut % (Auto) Lymph % (Auto) [place] % (Auto) Eos % (Auto) Baso % (Auto) Lymph # (Auto) [place] # (Auto) Eos # (Auto) Baso # (Auto) Abs Immat Gran (auto) Absolute Neuts (auto) Absolute Nucleated RBC Nucleated RBC % (auto) Smear Tech's Comments PT INR APTT O2 Saturation 94.0 ABG pH at Pt Temp 7.41 ABG pH (Temp Correct) 7.41 ABG pCO2 at Pt Temp 91 H* ABG pCO2 (Temp Corrct 90 H* ABG pO2 at Pt Temp 75 L ABG pO2 (Temp Correct 74 L ABG HCO3 58 H ABG Base Excess (Actual) 27.9 Anion Gap Estim Creat Clear Calc Estimated GFR POC Glucose Random Glucose Fasting Glucose Calcium Magnesium Total Bilirubin AST ALT Alkaline Phosphatase Troponin I High Sens 8.5 Total Protein Albumin Influenza Type A (PCR) NEGATIVE Influenza Type B (PCR) NEGATIVE RSV RNA Qual (PCR) NEGATIVE SARS-CoV-2 RNA (RT-PCR) NEGATIVE 09/25/21 09/25/21 09/25/21 12:11 19:14 19:30 MCV MCH MCHC RDW Plt Count MPV Immature Gran % (Auto) Neut % (Auto) Lymph % (Auto) [place] % (Auto) Eos % (Auto) Baso % (Auto) Lymph # (Auto) [place] # (Auto) Eos # (Auto) Baso # (Auto) Abs Immat Gran (auto) Absolute Neuts (auto) Absolute Nucleated RBC Nucleated RBC % (auto) Smear Tech's Comments PT 11.8 INR 1.0 APTT 40.4 H O2 Saturation ABG pH at Pt Temp ABG pH (Temp Correct) ABG pCO2 at Pt Temp ABG pCO2 (Temp Corrct ABG pO2 at Pt Temp ABG pO2 (Temp Correct ABG HCO3 ABG Base Excess (Actual) Anion Gap Estim Creat Clear Calc Estimated GFR POC Glucose 54 L* 56 L* Random Glucose Fasting Glucose Calcium Magnesium Total Bilirubin AST ALT Alkaline Phosphatase Troponin I High Sens Total Protein Albumin Influenza Type A (PCR) Influenza Type B (PCR) RSV RNA Qual (PCR) SARS-CoV-2 RNA (RT-PCR) 09/25/21 09/25/21 09/26/21 20:15 21:57 00:43 MCV MCH MCHC RDW Plt Count MPV Immature Gran % (Auto) Neut % (Auto) Lymph % (Auto) [place] % (Auto) Eos % (Auto) Baso % (Auto) Lymph # (Auto) [place] # (Auto) Eos # (Auto) Baso # (Auto) Abs Immat Gran (auto) Absolute Neuts (auto) Absolute Nucleated RBC Nucleated RBC % (auto) Smear Tech's Comments PT INR APTT O2 Saturation ABG pH at Pt Temp ABG pH (Temp Correct) ABG pCO2 at Pt Temp ABG pCO2 (Temp Corrct ABG pO2 at Pt Temp ABG pO2 (Temp Correct ABG HCO3 ABG Base Excess (Actual) Anion Gap Estim Creat Clear Calc Estimated GFR POC Glucose 107 140 H 138 H Random Glucose Fasting Glucose Calcium Magnesium Total Bilirubin AST ALT Alkaline Phosphatase Troponin I High Sens Total Protein Albumin Influenza Type A (PCR) Influenza Type B (PCR) RSV RNA Qual (PCR) SARS-CoV-2 RNA (RT-PCR) 09/26/21 09/26/21 09/26/21 06:39 06:46 06:46 MCV 89.8 MCH 26.8 L MCHC 29.8 L RDW 13.2 Plt Count 116 L MPV 11.8 Immature Gran % (Auto) Neut % (Auto) Lymph % (Auto) [place] % (Auto) Eos % (Auto) Baso % (Auto) Lymph # (Auto) [place] # (Auto) Eos # (Auto) Baso # (Auto) Abs Immat Gran (auto) Absolute Neuts (auto) Absolute Nucleated RBC 0.000 Nucleated RBC % (auto) 0.0 Smear Tech's Comments PT INR APTT O2 Saturation ABG pH at Pt Temp ABG pH (Temp Correct) ABG pCO2 at Pt Temp ABG pCO2 (Temp Corrct ABG pO2 at Pt Temp ABG pO2 (Temp Correct ABG HCO3 ABG Base Excess (Actual) Anion Gap 11 L Estim Creat Clear Calc 88.8 Estimated GFR > 60 POC Glucose 82 Random Glucose Fasting Glucose 94 Calcium 9.1 Magnesium 2.2 Total Bilirubin AST ALT Alkaline Phosphatase Troponin I High Sens Total Protein Albumin Influenza Type A (PCR) Influenza Type B (PCR) RSV RNA Qual (PCR) SARS-CoV-2 RNA (RT-PCR) 09/26/21 09/26/21 09/26/21 07:15 08:33 09:01 MCV MCH MCHC RDW Plt Count MPV Immature Gran % (Auto) Neut % (Auto) Lymph % (Auto) [place] % (Auto) Eos % (Auto) Baso % (Auto) Lymph # (Auto) [place] # (Auto) Eos # (Auto) Baso # (Auto) Abs Immat Gran (auto) Absolute Neuts (auto) Absolute Nucleated RBC Nucleated RBC % (auto) Smear Tech's Comments PT INR APTT O2 Saturation 90.0 ABG pH at Pt Temp 7.39 ABG pH (Temp Correct) 7.40 ABG pCO2 at Pt Temp 96 H* ABG pCO2 (Temp Corrct 93 H* ABG pO2 at Pt Temp 66 L ABG pO2 (Temp Correct 63 L ABG HCO3 59 H ABG Base Excess (Actual) 28.0 Anion Gap Estim Creat Clear Calc Estimated GFR POC Glucose 95 136 H Random Glucose Fasting Glucose Calcium Magnesium Total Bilirubin AST ALT Alkaline Phosphatase Troponin I High Sens Total Protein Albumin Influenza Type A (PCR) Influenza Type B (PCR) RSV RNA Qual (PCR) SARS-CoV-2 RNA (RT-PCR) Assessment and Plan (1) Pleural effusion on right: Status: Acute (2) Hypoglycemia due to insulin: Status: Acute (3) Chronic respiratory failure with hypoxia, on home O2 therapy: Status: Acute (4) Diabetes mellitus: Status: Acute Assessment and Plan: 66M presented with AMS metabolic encephalopathy due to DM with hypoglycemia now close to baseline was likely due to decreased intake monitor poc, will do sliding scale alone for now acute on chronic hypoxic and hypercapneic respiratory failure due to copd and likely OHS patient does not tolerate NIV, continue diamox, monitor bmp, pulm appreciated inhaled steroid/LABA metabolic alkalosis diamox, monitor bph proscar flomax htn lisinopril toprol right pleural effusion likely chronic, will obtain records from [employer] dvt prophylaxis - lovenox full code Quality Stroke Does the patient have a stroke diagnosis?: No VTE Prior VTE?: No VTE Risk Level:: Medical - moderate - high VTE Device Contraindication: Treatment Not Indicated VTE Drug Contraindication: N/A - Med Ordered
[2021-09-26 11:05] LABS: Glucose, Whole Blood 129 mg/dL (60-115)
--- NOTE | 2021-09-26 14:38 | PM.CNPUL ---
History of Present Illness History of Present Illness Consult date: 09/26/21 Requesting physician: Reji Ballard Reason for consult: dyspnea Chief complaint: AMS Narrative: 66-year-old gentleman, former 10 pack-year smoker, quit 15 years prior, with underlying history of congestive heart failure, possible COPD, morbid obesity, supplemental oxygen dependent, CO2 retention, diabetes mellitus admitted on 09/25/2021 with alteration of mental status secondary to hypoglycemia, also noted to be in exacerbation of underlying congestive heart failure with significant compensated respiratory acidosis. Pulmonary evaluation has been requested. Review of Systems Constitutional: Constitutional: Denies daytime sleepiness, Denies excessive sweating, Denies fatigue, Denies fever(s), Denies lethargy, Denies malaise, Denies night sweats, Denies snoring and Denies weight loss Eyes: Eyes: Denies blurry vision and Denies itchy eyes ENT: Denies nasal congestion, Denies post nasal drip, Denies sinus pain, Denies sinus pressure and Denies other ( Thrush) Cardiovascular: Cardiovascular: Denies chest pain, Reports pedal edema, Reports dyspnea, Reports orthopnea and Denies paroxysmal nocturnal dyspnea Respiratory: Respiratory: Denies cough, Denies hemoptysis, Denies excessive phlegm production, Reports dyspnea, Denies snoring and Denies wheezing Gastrointestinal: Gastrointestinal: Denies abdominal pain and Denies heartburn Musculoskeletal: Musculoskeletal: Denies myalgias, Denies arthralgias and Denies joint swelling Integumentary/Breasts: Skin/Breast: Denies rash Neurologic: Denies memory loss and Denies seizure-like activity Psychiatric: Psychiatric: Denies abnormal sleep pattern, Denies anxiety and Denies memory loss Endocrine: Endocrine: Denies excessive sweating, Denies fatigue and Denies heat intolerance Hematologic/Lymphatic: Hematologic/Lymphatic: Denies easy bruising Allergic/Immunologic: Allergic/Immunologic: Denies itchy eyes, Denies seasonal rhinorrhea and Denies wheezing PMFSH Past Medical History Medical History CHF (congestive heart failure) Chronic respiratory failure with hypoxia, on home O2 therapy COPD (chronic obstructive pulmonary disease) Diabetes mellitus Hypertension Morbid obesity Social History Social History (Updated 09/25/21 @ 15:28 by Reji Ballard MD) Alcohol intake: never Patient Tobacco Use Status: Former Tobacco user Use of substances other than those prescribed or required for medical reasons: No Currently Displaying Signs/Symptoms of Drug Intoxication Withdrawal: No Advance Directives: Yes Advance Directives Information Provided: Yes Advance Directives on File: No service: No Current occupational status: retired and disabled Meds Allergies Allergy/AdvReac Type Severity Reaction Status Date / Time adhesive tape [ADHESIVE TAPE] Allergy Unknown RASH Unverified 07/29/20 14:39 Penicillins [PENICILLINS] Allergy Unknown RASH Unverified 07/29/20 14:39 Active Medications: Current Medications Acetaminophen (Acetaminophen 325 Mg Tablet) 650 mg PO Q6H PRN PRN Reason: Pain, Mild (Pain Scale 1-3) Acetazolamide (Acetazolamide Sodium 500 Mg Vial) 250 mg IVPUSH Q8H [facility] Last Admin: 09/26/21 09:15 Dose: 250 mg Documented by: Aspirin (Aspirin Enteric Coated 81 Mg Tablet.) 81 mg PO DAILY [facility] Last Admin: 09/26/21 09:20 Dose: 81 mg Documented by: Atorvastatin Calcium (Atorvastatin Calcium 20 Mg Tablet) 20 mg PO BEDTIME [facility] Last Admin: 09/25/21 22:03 Dose: 20 mg Documented by: Dextrose (Dextrose 50 % 25 Gm/50 Ml Vial) 25 gm IVPUSH Q15M PRN; Protocol PRN Reason: per Hypoglycemia Standing Ord. Enoxaparin Sodium (Enoxaparin Sodium 40 Mg/0.4 Ml Syringe) 40 mg SUBCUT Q24H [facility] Last Admin: 09/25/21 16:09 Dose: 40 mg Documented by: Finasteride (Finasteride 5 Mg Tablet) 5 mg PO DAILY [facility] Last Admin: 09/26/21 09:20 Dose: 5 mg Documented by: Fluticasone/Vilanterol (Fluticasone/Vilanterol 100/25 Blst.W.Dev) 1 puff INHALE RDAILY [facility] Last Admin: 09/26/21 09:25 Dose: Not Given Documented by: Glucose (Glucose Gel 15 Gm Gel..Gram.) 15 gm PO Q15M PRN; Protocol PRN Reason: per Hypoglycemia Standing Ord. Bumetanide 25 mg/ IV (Miscellaneous Supplies) 100 mls @ 1 mls/hr IVCONT .Q24H [facility] Insulin Human Lispro (Insulin Lispro 100 Unit/Ml 3 Ml Vial) 0 unit SUBCUT QIDACHS [facility]; Protocol Last Admin: 09/26/21 11:19 Dose: Not Given Documented by: Metoprolol Succinate (Metoprolol Succinate Er 25 Mg Tab.Er.24h) 25 mg PO DAILY [facility]; Protocol Last Admin: 09/26/21 09:23 Dose: 25 mg Documented by: Pharmacy Consult (Consult Rx Perform Med Rec) 1 each MISCELLANE ONCE PRN PRN Reason: Consult order Potassium Chloride (Potassium Chloride Er 10 Meq Capsule.Er) 10 meq PO DAILY [facility] Last Admin: 09/26/21 09:20 Dose: 10 meq Documented by: Sodium Chloride (0.9 % Sodium Chloride Flush 3 Ml Syringe) 3 ml IVFLUSH QSHIFT [facility] Last Admin: 09/26/21 09:15 Dose: 3 ml Documented by: Tamsulosin HCl (Tamsulosin Hcl 0.4 Mg Capsule) 0.8 mg PO BEDTIME [facility] Last Admin: 09/25/21 22:03 Dose: 0.8 mg Documented by: Home Medications Medication Instructions Recorded Confirmed Last Taken Type aspirin 81 mg tablet,delayed 81 mg PO DAILY 09/25/21 09/25/21 09/24/21 History release atorvastatin 20 mg tablet 1 tab PO BEDTIME 09/25/21 09/25/21 09/24/21 History budesonide-formoterol HFA 80 2 puff PO BID 09/25/21 09/25/21 09/24/21 History mcg-4.5 mcg/actuation aerosol inhaler (Symbicort) finasteride 5 mg tablet 1 tab PO DAILY 09/25/21 09/25/21 09/24/21 History insulin glargine 100 unit/mL (3 34 unit SUBCUT BEDTIME 09/25/21 09/25/21 09/24/21 History mL) subcutaneous pen (Lantus Solostar U-100 Insulin) insulin lispro 100 unit/mL See Rx Instructions .ROUTE .COMPLEX 09/25/21 09/25/21 09/24/21 History subcutaneous pen ipratropium 0.5 mg-albuterol 3 mg 1 vial INHALATION QID 09/25/21 09/25/21 09/24/21 History (2.5 mg base)/3 mL nebulization soln lisinopril 40 mg tablet 1 tab PO DAILY 09/25/21 09/25/21 09/24/21 History metformin 1,000 mg tablet 1 tab PO BID 09/25/21 09/25/21 09/24/21 History metoprolol succinate 25 mg 1 tab PO DAILY 09/25/21 09/25/21 09/24/21 History tablet,extended release 24 hr potassium chloride 10 mEq 1 cap PO DAILY 09/25/21 09/25/21 09/24/21 History capsule,extended release tamsulosin 0.4 mg capsule 2 cap PO BEDTIME 09/25/21 09/25/21 09/24/21 History torsemide 20 mg tablet 3 tab PO BID 09/25/21 09/25/21 09/24/21 History Physical Exam Vital Signs: Vital Signs: Last Vital Signs Temp 97.2 F 09/26/21 11:19 Pulse 76 09/26/21 11:19 Resp 18 09/26/21 11:19 BP 144/69 H 09/26/21 11:19 Pulse Ox 90 L 09/26/21 11:19 Oxygen Flow Rate 3 09/25/21 10:28 Body Mass Index 50.6 Const: General: no acute distress, alert and awake Nutritional Appearance: obese Eyes: Sclerae: sclerae normal EOM: EOMs intact bilaterally Neck: Neck: Yes no lymphadenopathy, Yes trachea midline and Yes supple Resp: Effort & Inspection: normal respiratory effort and no respiratory distress Auscultation: crackles (Bibasilar) Cardio: Rate: regular rate Rhythm: regular rhythm Heart sounds: no gallops, no murmurs and no rubs GI: Palpation (GI): Soft to palpation and Other GI palpation findings present ( Nontender) Auscultation: normal bowel sounds Extrem: General: No clubbing, No cyanosis and Yes pedal edema (3+ bilateral) Results Laboratory Findings CBC and BMP: 09/26/21 06:46 09/26/21 06:46 ABG, PT/INR, D-dimer: PT/INR, D-dimer PT 11.8 SEC (9.9-13.0) 09/25/21 12:11 INR 1.0 (0.9-1.1) 09/25/21 12:11 Abnormal lab findings: Abnormal Labs 09/25/21 09/25/21 09/25/21 10:26 10:26 12:03 RBC 3.83 L Hgb 10.6 L Hct 35.3 L MCH MCHC 30.0 L Plt Count 105 L Neut % (Auto) 77.9 H Lymph % (Auto) 10.4 L Lymph # (Auto) 0.7 L APTT ABG pCO2 at Pt Temp 91 H* ABG pCO2 (Temp Corrct 90 H* ABG pO2 at Pt Temp 75 L ABG pO2 (Temp Correct 74 L ABG HCO3 58 H Chloride 87 L Carbon Dioxide 47 H* Anion Gap BUN 33 H POC Glucose Total Protein 6.1 L 09/25/21 09/25/21 09/25/21 12:11 19:14 19:30 RBC Hgb Hct MCH MCHC Plt Count Neut % (Auto) Lymph % (Auto) Lymph # (Auto) APTT 40.4 H ABG pCO2 at Pt Temp ABG pCO2 (Temp Corrct ABG pO2 at Pt Temp ABG pO2 (Temp Correct ABG HCO3 Chloride Carbon Dioxide Anion Gap BUN POC Glucose 54 L* 56 L* Total Protein 09/25/21 09/26/21 09/26/21 21:57 00:43 06:46 RBC 4.11 L Hgb 11.0 L Hct 36.9 L MCH 26.8 L MCHC 29.8 L Plt Count 116 L Neut % (Auto) Lymph % (Auto) Lymph # (Auto) APTT ABG pCO2 at Pt Temp ABG pCO2 (Temp Corrct ABG pO2 at Pt Temp ABG pO2 (Temp Correct ABG HCO3 Chloride Carbon Dioxide Anion Gap BUN POC Glucose 140 H 138 H Total Protein 09/26/21 09/26/21 09/26/21 06:46 08:33 09:01 RBC Hgb Hct MCH MCHC Plt Count Neut % (Auto) Lymph % (Auto) Lymph # (Auto) APTT ABG pCO2 at Pt Temp 96 H* ABG pCO2 (Temp Corrct 93 H* ABG pO2 at Pt Temp 66 L ABG pO2 (Temp Correct 63 L ABG HCO3 59 H Chloride 89 L Carbon Dioxide 46 H* Anion Gap 11 L BUN 30 H POC Glucose 136 H Total Protein 09/26/21 11:01 RBC Hgb Hct MCH MCHC Plt Count Neut % (Auto) Lymph % (Auto) Lymph # (Auto) APTT ABG pCO2 at Pt Temp ABG pCO2 (Temp Corrct ABG pO2 at Pt Temp ABG pO2 (Temp Correct ABG HCO3 Chloride Carbon Dioxide Anion Gap BUN POC Glucose 129 H Total Protein Assessment and Plan (1) Pleural effusion on right: Status: Acute (2) Morbid obesity: Status: Acute (3) Chronic respiratory failure with hypoxia, on home O2 therapy: Status: Acute (4) CHF (congestive heart failure): Status: Acute (5) Obesity hypoventilation syndrome: Status: Acute Impression: 66-year-old gentleman with morbid obesity, obstructive sleep apnea with obesity hyperventilation, congestive heart failure, possible COPD, initially admitted with alteration of mental status secondary to hypoglycemia, also noted to be in exacerbation of underlying congestive heart failure with compensated respiratory acidosis. Pleural effusion is likely secondary to congestive heart failure exacerbation, however, if fails to improve, will require diagnostic thoracentesis. Recommendation: Obtain 2D echocardiogram. Start acetazolamide and Bumex drip. Monitor electrolytes. Procedures Date of Service Date of Service: 09/26/21
[2021-09-26] MEDS: Enoxaparin Sodium 40 MG/0.4 ML SYRINGE SUBCUT (15:42)
[2021-09-26] MEDS: Bumetanide 25 MG in Container,Empty 0 ML IVCONT (15:51)
[2021-09-26 16:28] LABS: Glucose, Whole Blood 148 mg/dL (60-115)
[2021-09-26 19:42] LABS: Anion Gap 8 (12-20); Blood Urea Nitrogen 33 mg/dL (9-16); Carbon Dioxide 48 mmol/L (22-29); Chloride 89 mmol/L (96-108); Creatinine Clr Calc Pharmacy 61.4; Estimated Glomerular Filt Rate 47; Glucose Random 200 mg/dL (60-115); Potassium 4.3 mmol/L (3.3-5.1); Sodium 141 mmol/L (135-145)
[2021-09-26 20:39] LABS: Glucose, Whole Blood 152 mg/dL (60-115)
[2021-09-26] MEDS: Insulin Lispro 100 UNIT/ML 3 ML VIAL SUBCUT (21:05)
[2021-09-26] MEDS: Tamsulosin HCL 0.4 MG CAPSULE 0.8 MG PO (21:05)
[2021-09-26] MEDS: Atorvastatin Calcium 20 MG TABLET PO (21:06)
[2021-09-27] VITALS (9 sets, daily range): BP systolic 102–134; BP diastolic 44–65; PULSE 74–89; RESP 0–20; TEMP 36.1–37.2; O2SAT 86–96
[2021-09-27] MEDS: acetaZOLAMIDE sodium 500 MG VIAL 250 MG IVPUSH (00:02)
[2021-09-27 06:39] LABS: Hematocrit 35.2 % (42.0-52.0); Hemoglobin 10.5 g/dl (14.0-18.0); Mean Corpuscular HGB Conc 29.8 g/dl (31.0-36.0); Mean Corpuscular Hemoglobin 26.7 pg (27.0-33.0); Mean Corpuscular Volume 89.6 fL (80.0-98.0); Platelet Count 117 X10*3/uL (160-400); Red Blood Count 3.93 X10*6/uL (4.60-5.80); Red Cell Distribution Width 13.2 % (11.0-16.0); White Blood Count 6.8 X10*3/uL (4.8-10.8)
[2021-09-27 07:13] LABS: Glucose, Whole Blood 149 mg/dL (60-115)
[2021-09-27 07:28] LABS: Anion Gap 10 (12-20); Blood Urea Nitrogen 32 mg/dL (9-16); Calcium 8.9 mg/dL (8.4-10.2); Carbon Dioxide 44 mmol/L (22-29); Chloride 91 mmol/L (96-108); Creatinine Clr Calc Pharmacy 71.4; Estimated Glomerular Filt Rate 56; Glucose Fasting 152 mg/dL (60-99); Potassium 3.8 mmol/L (3.3-5.1); Sodium 141 mmol/L (135-145)
[2021-09-27] MEDS: Metoprolol Succinate ER 25 MG TAB.ER.24H PO (09:18)
[2021-09-27] MEDS: Aspirin Enteric Coated 81 MG TABLET.DR PO (09:18)
[2021-09-27] MEDS: Finasteride 5 MG TABLET PO (09:18)
[2021-09-27] MEDS: 0.9 % Sodium Chloride Flush 3 ML SYRINGE IVFLUSH ×3 (09:19→20:36)
[2021-09-27] MEDS: acetaZOLAMIDE sodium 500 MG VIAL IVPUSH ×2 (09:19→20:33)
--- NOTE | 2021-09-27 09:30 | CA_ITS ---
Transthoracic Echocardiogram Patient (Last, First, Middle): Hermes Matias W Gender: Male Date of : 1955 Age: 66 Procedure Date: 09/27/2021 Procedure Type: Transthoracic Echocardiogram Location: [facility] – [place] Height: 162.56 cm Weight: 133.81 kg BSA: 2.31 m2 Heart Rate: bpm BP: 134 / 65 mmHg Damage Adjuster: Referring MD: Thai Blancas MD Symptoms: TRAORE Study Quality: Fair ECG Rhythm: Sinus with extra beats Conclusions: - Normal left ventricular size and systolic function. - There is mildly increased left ventricular wall thickness. - Spectral Doppler is indicative of an impaired relaxation filling pattern. E/E prime ratio is >15, consistent with elevated filling pressures. - Normal right ventricular cavity size and systolic function. - The left atrium is moderately dilated. Findings Procedure Information Contrast agent, definity, is being given per protocol without apparent complications. Left Ventricle Normal left ventricular size and systolic function. There is mildly increased left ventricular wall thickness. The visually estimated ejection fraction is between 60-65%. There is no evidence of regional wall motion abnormalities. Abnormal diastolic function is noted. Spectral Doppler is indicative of an impaired relaxation filling pattern. E/E prime ratio is >15, consistent with elevated filling pressures. Right Ventricle Normal right ventricular cavity size and systolic function. Atria The left atrium is moderately dilated. Aortic Valve Normal aortic valve structure and function. There is no aortic valve stenosis. There is no aortic valve regurgitation. Mitral Valve There is mild mitral annular calcification. There is no mitral valve regurgitation. There is no mitral valve stenosis. Pulmonic Valve The pulmonic valve is likely normal. Tricuspid Valve Likely normal tricuspid valve structure and function. Mildly elevated right atrial pressure. There is no evidence of pulmonary hypertension. Great Vessels All visible segments of the aorta are normal in size. The visualized portions of the pulmonary artery and branches are normal. Venous The inferior vena cava is dilated and collapses greater than 50% with inspiration. Pericardium/Pleural There is no evidence of pericardial effusion. Prior Study Comparison No prior study available for comparison. Measurements 2D Linear Measurements IVSd: 1.27 0.6-0.9/0.6-1.0 cm LVIDd: 5.18 3.9-5.3/4.2-5.9 cm LVIDd Index: 2.24 2.4-3.2/2.2-3.1 cm/m2 LVIDs: 3.33 2.0-3.6 cm LVPWd: 1.28 0.7-1.1 cm Ao Root: 3.60 2.1-3.5 cm LA Diam: 4.40 2.7-3.8/3.0-4.0 cm LAIDs Index: 1.90 1.5-2.3 cm/m2 LV Mass: 335.81 67-162/88-224 g LV Mass Index: 145.37 43-95/49-115 g/m2 LVOT Diam: 2.50 3.0+(-)1.3 cm Mitral Valve MV Pk E: 1.02 MV PK A: 1.29 MV Decel Time: 247.00 E/A: 0.80 E'Lateral: 7.18 E'Medial: 5.11 E/E' Med: 20.00 E/E' Lat: 14.20 PHT: 72.00 MVA PHT: 3.06 Decel Rapides: 4.13 Aortic Valve AoV Pk Yonathan: 1.63 AoV Mn Yonathan: 1.04 AoV VTI: 0.33 AoV Pk Grad: 11.00 Aov Mn Grad: 5.00 MIKE Cont.VTI: 4.00 LVOT LVOT Pk Yonathan: 0.97 LVOT Mn Yonathan: 0.70 LVOT VTI: 0.27 LVOT Pk Grad: 4.00 LVOT Mn Grad: 2.00 LVOT Diam: 2.50 LVOT Area: 4.91 Diastolic Function MV Pk E: 1.02 MV Pk A: 1.29 E/A: 0.80 E'Medial: 5.11 E/E' Med: 20.00 E' Laterial: 7.18 E/E' Lat: 14.20 Tricuspid Valve TR Pk Yonathan: 1.88 TR Pk Grad: 14.00 RVSP: 22.00 Great Vessels Aorta Ao Root-2D: 3.60 2.0-3.7 cm Ao Asc: 3.30 2.1-3.4 cm Pulmonary Valve PV Pk Yonathan: 1.05 Peak PV Grad: 4.00 Updated in Other Vendor System with Status of Final Elvis Fowler MD electronically signed on 09/27/2021 4:55:49 PM with status of Final
[2021-09-27 11:17] LABS: Glucose, Whole Blood 189 mg/dL (60-115)
[2021-09-27] MEDS: Insulin Lispro 100 UNIT/ML 3 ML VIAL SUBCUT ×2 (11:34→20:33)
[2021-09-27 12:58] LABS: Glucose, Whole Blood 192 mg/dL (60-115)
--- NOTE | 2021-09-27 13:11 | P.PNIM_ITS ---
Subjective Subjective Date of Service: 09/27/21 Interval History: cc: ams interval history: back to baseline Cardiovascular Cardiovascular: Reports no additional cardiovascular complaints Respiratory Respiratory: Reports no additional respiratory complaints Physical Exam Vital Signs: Vital Signs: Last Vital Signs Temp 97 F 09/27/21 11:07 Pulse 74 09/27/21 11:07 Resp 0 L 09/27/21 11:07 BP 119/59 L 09/27/21 11:07 Pulse Ox 96 09/27/21 11:07 Oxygen Flow Rate 3 09/25/21 10:28 Body Mass Index 50.6 General: AO X 3, No acute distress Resp:? Crackles bilateral, no accessory muscles used CVS: S1,S2,RRR, 3+ edema GI: soft, non tender, non distended Neuro:? motor grossly intact, alert Psych: appropriate affect, appropriate insight? Objective Data Active Medications Acetaminophen (Acetaminophen 325 Mg Tablet) 650 mg PO Q6H PRN PRN Reason: Pain, Mild (Pain Scale 1-3) Acetazolamide (Acetazolamide Sodium 500 Mg Vial) 500 mg IVPUSH Q12H [facility] Last Admin: 09/27/21 09:19 Dose: 500 mg Documented by: ALBERTINA Aspirin (Aspirin Enteric Coated 81 Mg Tablet.Dr) 81 mg PO DAILY [facility] Last Admin: 09/27/21 09:18 Dose: 81 mg Documented by: ALBERTINA Atorvastatin Calcium (Atorvastatin Calcium 20 Mg Tablet) 20 mg PO BEDTIME [facility] Last Admin: 09/26/21 21:06 Dose: 20 mg Documented by: YOU Dextrose (Dextrose 50 % 25 Gm/50 Ml Vial) 25 gm IVPUSH Q15M PRN; Protocol PRN Reason: per Hypoglycemia Standing Ord. Enoxaparin Sodium (Enoxaparin Sodium 40 Mg/0.4 Ml Syringe) 40 mg SUBCUT Q24H [facility] Last Admin: 09/26/21 15:42 Dose: 40 mg Documented by: CUCA Finasteride (Finasteride 5 Mg Tablet) 5 mg PO DAILY [facility] Last Admin: 09/27/21 09:18 Dose: 5 mg Documented by: ALBERTINA Fluticasone/Vilanterol (Fluticasone/Vilanterol 100/25 Blst.W.Dev) 1 puff INHALE RDAILY [facility] Last Admin: 09/27/21 07:23 Dose: Not Given Documented by: ANGELITA Non-Admin Reason: Med Not Available Glucose (Glucose Gel 15 Gm Gel..Gram.) 15 gm PO Q15M PRN; Protocol PRN Reason: per Hypoglycemia Standing Ord. Insulin Human Lispro (Insulin Lispro 100 Unit/Ml 3 Ml Vial) 0 unit SUBCUT QIDACHS [facility]; Protocol Last Admin: 09/27/21 11:34 Dose: 2 unit Documented by: ALBERTINA Metoprolol Succinate (Metoprolol Succinate Er 25 Mg Tab.Er.24h) 25 mg PO DAILY [facility]; Protocol Last Admin: 09/27/21 09:18 Dose: 25 mg Documented by: ALBERTINA Pharmacy Consult (Consult Rx Perform Med Rec) 1 each MISCELLANE ONCE PRN PRN Reason: Consult order Potassium Chloride (Potassium Chloride Er 10 Meq Capsule.Er) 10 meq PO DAILY [facility] Last Admin: 09/27/21 09:18 Dose: 10 meq Documented by: ALBERTINA Saliva Substitute (Dry Mouth [place] 60 Ml [place]) 1 spray MUCOUS MEM Q2H PRN PRN Reason: dry mouth Sodium Chloride (0.9 % Sodium Chloride Flush 3 Ml Syringe) 3 ml IVFLUSH QSHIFT [facility] Last Admin: 09/27/21 09:19 Dose: 3 ml Documented by: ALBERTNIA Tamsulosin HCl (Tamsulosin Hcl 0.4 Mg Capsule) 0.8 mg PO BEDTIME [facility] Last Admin: 09/26/21 21:05 Dose: 0.8 mg Documented by: YOU Labs CBC & Chem 7: 09/27/21 06:13 09/27/21 06:13 Labs: Laboratory Results - last 24 hr 09/26/21 09/26/21 09/26/21 16:20 19:10 20:22 MCV MCH MCHC RDW Plt Count MPV Absolute Nucleated RBC Nucleated RBC % (auto) Anion Gap 8 L Estim Creat Clear Calc 61.4 Estimated GFR 47 POC Glucose 148 H 152 H Random Glucose 200 H D Fasting Glucose Calcium 9.0 09/27/21 09/27/21 09/27/21 06:13 06:13 07:03 MCV 89.6 MCH 26.7 L MCHC 29.8 L RDW 13.2 Plt Count 117 L MPV 12.0 Absolute Nucleated RBC 0.000 Nucleated RBC % (auto) 0.0 Anion Gap 10 L Estim Creat Clear Calc 71.4 Estimated GFR 56 POC Glucose 149 H Random Glucose Fasting Glucose 152 H D Calcium 8.9 09/27/21 09/27/21 11:07 12:54 MCV MCH MCHC RDW Plt Count MPV Absolute Nucleated RBC Nucleated RBC % (auto) Anion Gap Estim Creat Clear Calc Estimated GFR POC Glucose 189 H 192 H Random Glucose Fasting Glucose Calcium Assessment and Plan (1) Pleural effusion on right: Status: Acute (2) Hypoglycemia due to insulin: Status: Acute (3) Chronic respiratory failure with hypoxia, on home O2 therapy: Status: Acute (4) Diabetes mellitus: Status: Acute Assessment and Plan: 66M presented with AMS metabolic encephalopathy due to DM with hypoglycemia back to baseline was likely due to decreased intake monitor poc, continue sliding scale alone for now acute on chronic hypoxic and hypercapneic respiratory failure due to OHS patient does not tolerate NIV, continue diamox increased to 500mg iv q8, monitor bmp, pulm appreciated inhaled steroid/LABA acute on chronic chf unspecified follow up echo recieved several hours of bumex drip and diiuresed well, now dced acute metabolic alkalosis with chronic respiratory acidosis diamox, monitor bph proscar flomax htn lisinopril toprol dvt prophylaxis - lovenox full code Quality Stroke Does the patient have a stroke diagnosis?: No VTE Prior VTE?: No VTE Risk Level:: Medical - moderate - high VTE Device Contraindication: Treatment Not Indicated VTE Drug Contraindication: N/A - Med Ordered
[2021-09-27 16:43] LABS: Glucose, Whole Blood 112 mg/dL (60-115)
[2021-09-27] MEDS: Enoxaparin Sodium 40 MG/0.4 ML SYRINGE SUBCUT (18:20)
[2021-09-27 19:09] LABS: Anion Gap 10 (12-20); Blood Urea Nitrogen 37 mg/dL (9-16); Carbon Dioxide 45 mmol/L (22-29); Chloride 90 mmol/L (96-108); Creatinine Clr Calc Pharmacy 63.1; Estimated Glomerular Filt Rate 49; Glucose Random 173 mg/dL (60-115); Sodium 141 mmol/L (135-145)
[2021-09-27 20:12] LABS: Glucose, Whole Blood 154 mg/dL (60-115)
[2021-09-27] MEDS: Atorvastatin Calcium 20 MG TABLET PO (20:33)
[2021-09-27] MEDS: Tamsulosin HCL 0.4 MG CAPSULE 0.8 MG PO (20:33)
--- NOTE | 2021-09-27 22:27 | PC.NURSE ---
Pt sitting on edge of recliner, refusing chair and bed alarm. Offered to help pt get comfortabe in chair to reduce fall risk, patient refused. Camera room aware.
[2021-09-28] VITALS (28 sets, daily range): BP systolic 83–134; BP diastolic 36–62; PULSE 67–86; RESP 14–24; TEMP 36.3–36.7; O2SAT 87–95
[2021-09-28] MEDS: Acetaminophen 325 MG TABLET 650 MG PO (00:59)
[2021-09-28 04:21] LABS: ABG Base Excess 21.7 mmol/L; ABG HCO3 54 mmol/L (22-26); ABG pCO2 113 mmHg (32-45); ABG pCO2 TC 111 mmHg (32-45); ABG pH 7.28 (7.35-7.45); ABG pH TC 7.29 (7.35-7.45); ABG pO2 73 mmHg (83-108); ABG pO2 TC 70 (83-108)
[2021-09-28 04:21] LABS: ABG Refer to POC result
[2021-09-28 04:35] LABS: Glucose, Whole Blood 157 mg/dL (60-115)
--- NOTE | 2021-09-28 04:46 | P.EN_ITS ---
Event Note Date of Service: 09/28/21 Event Note: This is a 66-year-old male, former 10 pack-year smoker, quit 15 year s prior, with underlying history of congestive heart failure, possible COPD, morbid obesity, supplemental oxygen dependent, CO2 retention, diabetes mellitus admitted on 09/25/2021 with alteration of mental status secondary to hypoglycemia, also noted to be in exacerbation of underlying congestive heart failure with significant compensated respiratory acidosis.? Overnight, according to nursing he Has progressively gotten more confused?with worsening shortness of breath.? ABGs done, showing 7.28/113/73/50. ?Requiring ICU transfer for management of acute mixed hypercapnic hypoxic respiratory failure requiring BiPAP Plan: BIPAP Cont diamox Post BIPAP VBGs Critical care: x 30 minutes
--- NOTE | 2021-09-28 05:12 | PC.NURSE ---
Pt to ICU from [facility] at approx 0445. Pt obtunded, opens eyes to noxious stimuli. Placed on bipap 12/5/35%, RR 14, SpO2 88%. LS diminished. CXR ordered. SBP 70's, order for IV albumin x1. +3 BLE edema. Incontinent of urine. Skin intact, placed on prevalon mattress system.
[2021-09-28 05:14] LABS: Glucose, Whole Blood 164 mg/dL (60-115)
[2021-09-28] MEDS: Albumin Human 25 % 100 ML IV (05:26)
[2021-09-28 06:08] LABS: VBG Base Excess 21.6 mmol/L; VBG HCO3 51 mmol/L (22-26); VBG pCO2 86 mmHg; VBG pH 7.38 (7.32-7.43); VBG pO2 66 mmHg
[2021-09-28 06:12] LABS: Hematocrit 32.4 % (42.0-52.0); Hemoglobin 9.7 g/dl (14.0-18.0); Mean Corpuscular HGB Conc 29.9 g/dl (31.0-36.0); Mean Corpuscular Hemoglobin 27.5 pg (27.0-33.0); Mean Corpuscular Volume 91.8 fL (80.0-98.0); Mean Platelet Volume 11.8 fL (9.4-12.4); Platelet Count 111 X10*3/uL (160-400); Red Blood Count 3.53 X10*6/uL (4.60-5.80); Red Cell Distribution Width 13.3 % (11.0-16.0); White Blood Count 6.4 X10*3/uL (4.8-10.8)
[2021-09-28 06:22] LABS: Lactic Acid 0.5 mmol/L (0.5-2.0)
[2021-09-28 06:39] LABS: Anion Gap 10 (12-20); Calcium 8.6 mg/dL (8.4-10.2); Carbon Dioxide 43 mmol/L (22-29); Chloride 92 mmol/L (96-108); Phosphorus 5.4 mg/dL (2.7-4.5); Potassium 3.3 mmol/L (3.3-5.1); Sodium 142 mmol/L (135-145)
--- NOTE | 2021-09-28 06:43 | P.EN_ITS ---
Event Note Date of Service: 09/28/21 Event Note: Patient was progressively becoming more lethargic overnight, event ually becoming more confused. ABG obtained showed hypercapnic respiratory failure. Patient is placed on BiPAP and sent to the ICU for rescue BiPAP.
[2021-09-28 06:49] LABS: Albumin Level 3.5 g/dL (3.5-5.0); Blood Urea Nitrogen 42 mg/dL (9-16); Creatinine Clr Calc Pharmacy 60.2; Estimated Glomerular Filt Rate 46; Glucose Fasting 167 mg/dL (60-99); Magnesium 2.6 mg/dL (1.6-2.6)
[2021-09-28 07:08] LABS: Venous Blood Gas Refer to POC result
[2021-09-28 07:20] LABS: Glucose, Whole Blood 143 mg/dL (60-115)
[2021-09-28] MEDS: 0.9 % Sodium Chloride Flush 3 ML SYRINGE IVFLUSH ×3 (07:36→23:40)
[2021-09-28] MEDS: acetaZOLAMIDE sodium 500 MG VIAL IVPUSH ×2 (07:39→20:01)
[2021-09-28 09:09] LABS: B Type Natriuretic Peptide 84 pg/mL (<100); Troponin-I High Sensitivity 6.9 ng/L (<3.5-35.0)
[2021-09-28 11:26] LABS: Glucose, Whole Blood 114 mg/dL (60-115)
--- NOTE | 2021-09-28 12:50 | MHC.CM.PN ---
Pt transferred to ICU for worsening respiratory distress: pt is now on BiPap support: Per review of CM d/c planning notes, pt resides with his spouse/DIRECTOR DISTRIBUTION and has 3 children that live in the apt upstairs from him. pt has [employer] for home O2/CPAP needs but no other services. Attempted to meet with pt: he is only oriented to self only: spouse states the confusion is new. Will await return of orientation before initiating a discussion about d/c options including STR.
--- NOTE | 2021-09-28 14:31 | P.PNCC_ITS ---
Subjective Subjective Date of Service: 09/28/21 Interval History: 66-year-old gentleman, former 10 pack-year smoker, quit 15 years prior, with underlying history of congestive heart failure, possible COPD, morbid obesity, supplemental oxygen dependent, CO2 retention, diabetes mellitus admitted on 09/25/2021 with alteration of mental status secondary to hypoglycemia, also noted to be in exacerbation of underlying congestive heart failure with significant compensated respiratory acidosis. Patient has been started on ascites 0 mitral with slow improvement in her with serum bicarb anali te lower extremity edema. However, he was noncompliant with noninvasive positive pressure ventilation and this resulting in worsening CO2 retention requiring transfer to intensive care unit and utilization of rescue BiPAP therapy. Critical Care Time (minutes): 45 Physical Exam Vital Signs: Vital Signs: Last Vital Signs Temp 98.0 F 09/28/21 12:00 Pulse 79 09/28/21 14:00 Resp 20 09/28/21 14:00 BP 113/57 L 09/28/21 14:00 Pulse Ox 93 09/28/21 14:00 Oxygen Flow Rate 3 09/25/21 10:28 Body Mass Index 50.6 Const: General: no acute distress and lethargic ( [place]) Nutritional Appearance: obese Orientation/consciousness: lethargic ( [place]) Eyes: Sclerae: sclerae normal EOM: EOMs intact bilaterally Neck: Neck: Yes no lymphadenopathy, Yes trachea midline and Yes supple Resp: Effort & Inspection: normal respiratory effort and no respiratory distress Auscultation: crackles ( bibasilar) Cardio: Rate: regular rate Rhythm: regular rhythm Heart sounds: no gallops, no murmurs and no rubs GI: Palpation (GI): Soft to palpation and Other GI palpation findings present ( Nontender) Auscultation: normal bowel sounds Extrem: General: Yes no pedal edema, No clubbing, No cyanosis and Yes pedal edema ( 2+ bilateral) Objective Data Labs CBC & Chem 7: 09/28/21 06:02 09/28/21 06:02 Labs: Laboratory Results - last 24 hr 09/27/21 09/27/21 09/27/21 16:37 18:26 20:09 WBC RBC Hgb Hct MCV MCH MCHC RDW Plt Count MPV Absolute Nucleated RBC Nucleated RBC % (auto) O2 Saturation ABG pH at Pt Temp ABG pH (Temp Correct) ABG pCO2 at Pt Temp ABG pCO2 (Temp Corrct ABG pO2 at Pt Temp ABG pO2 (Temp Correct ABG HCO3 ABG Base Excess (Actual) VBG pH VBG pCO2 VBG pO2 VBG HCO3 VBG O2 Saturation VBG Base Excess Sodium 141 Potassium 4.0 Chloride 90 L Carbon Dioxide 45 H* Anion Gap 10 L BUN 37 H Creatinine 1.45 H Estim Creat Clear Calc 63.1 Estimated GFR 49 POC Glucose 112 154 H Random Glucose 173 H Fasting Glucose Lactic Acid Calcium 9.0 Phosphorus Magnesium Troponin I High Sens B-Natriuretic Peptide Albumin 09/28/21 09/28/21 09/28/21 04:09 04:31 05:10 WBC RBC Hgb Hct MCV MCH MCHC RDW Plt Count MPV Absolute Nucleated RBC Nucleated RBC % (auto) O2 Saturation 89.0 ABG pH at Pt Temp 7.28 L ABG pH (Temp Correct) 7.29 L ABG pCO2 at Pt Temp 113 H* ABG pCO2 (Temp Corrct 111 H* ABG pO2 at Pt Temp 73 L ABG pO2 (Temp Correct 70 L ABG HCO3 54 H ABG Base Excess (Actual) 21.7 VBG pH VBG pCO2 VBG pO2 VBG HCO3 VBG O2 Saturation VBG Base Excess Sodium Potassium Chloride Carbon Dioxide Anion Gap BUN Creatinine Estim Creat Clear Calc Estimated GFR POC Glucose 157 H 164 H Random Glucose Fasting Glucose Lactic Acid Calcium Phosphorus Magnesium Troponin I High Sens B-Natriuretic Peptide Albumin 09/28/21 09/28/21 09/28/21 06:02 06:02 06:02 WBC 6.4 RBC 3.53 L Hgb 9.7 L Hct 32.4 L MCV 91.8 MCH 27.5 MCHC 29.9 L RDW 13.3 Plt Count 111 L MPV 11.8 Absolute Nucleated RBC 0.000 Nucleated RBC % (auto) 0.0 O2 Saturation ABG pH at Pt Temp ABG pH (Temp Correct) ABG pCO2 at Pt Temp ABG pCO2 (Temp Corrct ABG pO2 at Pt Temp ABG pO2 (Temp Correct ABG HCO3 ABG Base Excess (Actual) VBG pH VBG pCO2 VBG pO2 VBG HCO3 VBG O2 Saturation VBG Base Excess Sodium 142 Potassium 3.3 Chloride 92 L Carbon Dioxide 43 H* Anion Gap 10 L BUN 42 H Creatinine 1.52 H Estim Creat Clear Calc 60.2 Estimated GFR 46 POC Glucose Random Glucose Fasting Glucose 167 H Lactic Acid 0.5 Calcium 8.6 Phosphorus 5.4 H Magnesium 2.6 Troponin I High Sens B-Natriuretic Peptide Albumin 3.5 09/28/21 09/28/21 09/28/21 06:02 07:17 08:27 WBC RBC Hgb Hct MCV MCH MCHC RDW Plt Count MPV Absolute Nucleated RBC Nucleated RBC % (auto) O2 Saturation ABG pH at Pt Temp ABG pH (Temp Correct) ABG pCO2 at Pt Temp ABG pCO2 (Temp Corrct ABG pO2 at Pt Temp ABG pO2 (Temp Correct ABG HCO3 ABG Base Excess (Actual) VBG pH 7.38 VBG pCO2 86 VBG pO2 66 VBG HCO3 51 H VBG O2 Saturation 89.0 VBG Base Excess 21.6 Sodium Potassium Chloride Carbon Dioxide Anion Gap BUN Creatinine Estim Creat Clear Calc Estimated GFR POC Glucose 143 H Random Glucose Fasting Glucose Lactic Acid Calcium Phosphorus Magnesium Troponin I High Sens 6.9 B-Natriuretic Peptide 84 Albumin 09/28/21 11:21 WBC RBC Hgb Hct MCV MCH MCHC RDW Plt Count MPV Absolute Nucleated RBC Nucleated RBC % (auto) O2 Saturation ABG pH at Pt Temp ABG pH (Temp Correct) ABG pCO2 at Pt Temp ABG pCO2 (Temp Corrct ABG pO2 at Pt Temp ABG pO2 (Temp Correct ABG HCO3 ABG Base Excess (Actual) VBG pH VBG pCO2 VBG pO2 VBG HCO3 VBG O2 Saturation VBG Base Excess Sodium Potassium Chloride Carbon Dioxide Anion Gap BUN Creatinine Estim Creat Clear Calc Estimated GFR POC Glucose 114 Random Glucose Fasting Glucose Lactic Acid Calcium Phosphorus Magnesium Troponin I High Sens B-Natriuretic Peptide Albumin Progress Note: A&P Assessment and plan (1) Obesity hypoventilation syndrome: Status: Acute (2) Morbid obesity: Status: Acute (3) Chronic respiratory failure with hypoxia, on home O2 therapy: Status: Acute (4) Diabetes mellitus: Status: Acute (5) CHF (congestive heart failure): Status: Acute Assessment and Plan: Assessment: 66-year-old gentleman with underlying morbid obesity, KATIE with obesity hypoventilation syndrome admitted with worsening dyspnea and exacerbation of underlying chronic diastolic congestive heart failure. Plan: Neuro: No acute issues. Cardiac: diastolic congestive heart failure exacerbation improving with diuresis. Pulmonary: Acute on chronic hypoxic and hypercapnic respiratory failure secondary to obesity hyperventilation syndrome with poor compliance with noninvasive positive pressure ventilation and exacerbation of underlying diastolic congestive heart, now requiring BiPAP support. Continue to titrate off BiPAP support as tolerated. Continue with diuresis. Renal: non oliguric, continue to monitor renal indices and urine output. Continue acetazolamide. Endo: No acute issues. Underlying diabetes mellitus. GI: No acute issues. ID: No acute issues Heme/Onc: No acute issues. Psych: No acute issues. Miscellaneous: No acute issues. Prophylaxis: Lovenox Diet: Diabetic Critical care time spent: 45 minutes Quality Stroke Does the patient have a stroke diagnosis?: No VTE Prior VTE?: No VTE Risk Level:: Medical - moderate - high VTE Device Contraindication: Treatment Not Indicated VTE Drug Contraindication: N/A - Med Ordered
[2021-09-28 16:12] LABS: Glucose, Whole Blood 102 mg/dL (60-115)
[2021-09-28] MEDS: Enoxaparin Sodium 40 MG/0.4 ML SYRINGE SUBCUT (16:48)
[2021-09-28 18:48] LABS: Anion Gap 11 (12-20); Blood Urea Nitrogen 40 mg/dL (9-16); Calcium 8.6 mg/dL (8.4-10.2); Carbon Dioxide 42 mmol/L (22-29); Chloride 93 mmol/L (96-108); Creatinine Clr Calc Pharmacy 71.4; Estimated Glomerular Filt Rate 56; Glucose Random 113 mg/dL (60-115); Potassium 3.2 mmol/L (3.3-5.1); Sodium 143 mmol/L (135-145)
[2021-09-28] MEDS: Potassium Chloride/H20 10 MEQ/100 ML PIGGYBACK 100 MEQ IV ×4 (19:03→22:14)
[2021-09-28 20:09] LABS: Glucose, Whole Blood 109 mg/dL (60-115)
[2021-09-29] VITALS (31 sets, daily range): BP systolic 92–131; BP diastolic 30–68; PULSE 72–88; RESP 13–24; TEMP 36.3–37; O2SAT 87–94
--- NOTE | 2021-09-29 03:56 | PC.NURSE ---
CARE ASSUMED 23:15...REMAINS BIPAP 10/16 RATE 10 FIO2 40%....Ve 8-10 l/m...SAO2 92-93%...AWAKE SPONTANEOUSLY...ALERT..CONVERSES...MENTATING APPROPRIATY..RAISES THICK WHITE SPUTUM...ROLLS SELF TO RIGHT SIDE TO VOID IN URINAL D/T GENITAL ANATOMY...NSR...ISOLATED PVC...DENIES DISCOMFORT EXCEPT FOR DRY MOUTH FROM MASK ....TAKES H20 W/O DIFFICULTY..RESTFUL OVERNIGHT....AWAKE TO VOID AND TAKE H20 4AM...MENTATING APPROPRIATELY
[2021-09-29 05:18] LABS: VBG Base Excess 15.1 mmol/L; VBG HCO3 43 mmol/L (22-26); VBG pCO2 70 mmHg; VBG pH 7.39 (7.32-7.43); VBG pO2 78 mmHg
[2021-09-29 05:20] LABS: MANUAL DIFF FLAG NO
[2021-09-29 05:23] LABS: Basophils Percent Auto 0.7 % (0-2); Eosinophils Absolute Auto 0.2 X10*3/uL (0.0-0.4); Eosinophils Percent Auto 3.9 % (0-4); Hematocrit 32.4 % (42.0-52.0); Hemoglobin 9.8 g/dl (14.0-18.0); Imm Gran Abs Auto 0.03 X10*3/uL (0.00-0.03); Imm Gran Pct Auto 0.5 % (0.0-0.4); Lymphocytes Absolute Auto 0.9 X10*3/uL (1.2-4.9); Lymphocytes Percent Auto 16.1 % (20-40); Mean Corpuscular HGB Conc 30.2 g/dl (31.0-36.0); Mean Corpuscular Hemoglobin 27.8 pg (27.0-33.0); Mean Corpuscular Volume 91.8 fL (80.0-98.0); Mean Platelet Volume 11.5 fL (9.4-12.4); Monocytes Absolute Auto 0.4 X10*3/uL (0.1-1.2); Monocytes Percent Auto 7.3 % (2-11); Neutrophils Percent Auto 71.5 % (45-73); Platelet Count 102 X10*3/uL (160-400); Red Blood Count 3.53 X10*6/uL (4.60-5.80); Red Cell Distribution Width 13.2 % (11.0-16.0); White Blood Count 5.7 X10*3/uL (4.8-10.8)
[2021-09-29 05:54] LABS: Alanine Aminotransferase 16 U/L (0-40); Albumin Level 3.3 g/dL (3.5-5.0); Alkaline Phosphatase 73 U/L (39-117); Anion Gap 10 (12-20); Aspartate Amino Transferase 14 U/L (5-37); Bilirubin Total 0.4 mg/dL (0.0-1.0); Blood Urea Nitrogen 39 mg/dL (9-16); Calcium 8.5 mg/dL (8.4-10.2); Carbon Dioxide 42 mmol/L (22-29); Chloride 95 mmol/L (96-108); Creatinine Clr Calc Pharmacy 80.9; Estimated Glomerular Filt Rate > 60; Glucose Random 106 mg/dL (60-115); Magnesium 2.6 mg/dL (1.6-2.6); Phosphorus 3.9 mg/dL (2.7-4.5); Potassium 3.2 mmol/L (3.3-5.1); Sodium 144 mmol/L (135-145); Total Protein 5.5 g/dL (6.5-8.0)
[2021-09-29] MEDS: Potassium Chloride/H20 10 MEQ/100 ML PIGGYBACK 100 MEQ IV ×4 (06:39→09:59)
[2021-09-29 07:21] LABS: Glucose, Whole Blood 99 mg/dL (60-115)
[2021-09-29] MEDS: 0.9 % Sodium Chloride Flush 3 ML SYRINGE IVFLUSH ×3 (07:24→21:02)
[2021-09-29] MEDS: acetaZOLAMIDE sodium 500 MG VIAL IVPUSH ×2 (07:41→21:02)
[2021-09-29] MEDS: Fluticasone/Vilanterol 100/25 BLST.W.DEV 1 PUFF INHALE (07:53)
[2021-09-29] MEDS: Aspirin Enteric Coated 81 MG TABLET.DR PO (07:59)
[2021-09-29] MEDS: Finasteride 5 MG TABLET PO (07:59)
[2021-09-29 08:27] LABS: Venous Blood Gas Refer to POC result
[2021-09-29] MEDS: Bumetanide 25 MG in Container,Empty 0 ML IVCONT (08:55)
[2021-09-29 11:29] LABS: Glucose, Whole Blood 127 mg/dL (60-115)
--- NOTE | 2021-09-29 11:54 | P.PNCC_ITS ---
Subjective Subjective Date of Service: 09/29/21 Interval History: 66-year-old gentleman, former 10 pack-year smoker, quit 15 years prior, with underlying history of congestive heart failure, possible COPD, morbid obesity, supplemental oxygen dependent, CO2 retention, diabetes mellitus admitted on 09/25/2021 with alteration of mental status secondary to hypoglycemia, also noted to be in exacerbation of underlying congestive heart failure with significant compensated respiratory acidosis. Patient has been started on ascites 0 mitral with slow improvement in her with serum bicarb anali te lower extremity edema. However, he was noncompliant with noninvasive positive pressure ventilation and this resulting in worsening CO2 retention requiring transfer to intensive care unit and utilization of rescue BiPAP therapy. Improving with diuresis. No events overnight, on and off BiPAP. Critical Care Time (minutes): 30 Physical Exam Vital Signs: Vital Signs: Last Vital Signs Temp 98.1 F 09/29/21 11:00 Pulse 82 09/29/21 11:00 Resp 13 09/29/21 11:31 BP 115/50 L 09/29/21 11:00 Pulse Ox 91 L 09/29/21 11:00 Oxygen Flow Rate 3 09/25/21 10:28 Body Mass Index 50.6 Const: General: no acute distress, alert and awake Nutritional Appearance: obese Eyes: Sclerae: sclerae normal EOM: EOMs intact bilaterally Neck: Neck: Yes no lymphadenopathy, Yes trachea midline and Yes supple Resp: Effort & Inspection: normal respiratory effort and no respiratory distress Auscultation: crackles ( Diffuse bilateral) Cardio: Rate: regular rate Rhythm: regular rhythm Heart sounds: no gallops, no murmurs and no rubs GI: Palpation (GI): Soft to palpation and Other GI palpation findings present ( Nontender) Auscultation: normal bowel sounds Extrem: General: No clubbing, No cyanosis and Yes pedal edema ( 2+ bilateral) Objective Data Labs CBC & Chem 7: 09/29/21 05:08 09/29/21 05:08 Labs: Laboratory Results - last 24 hr 09/28/21 09/28/21 09/28/21 16:07 18:16 20:07 WBC RBC Hgb Hct MCV MCH MCHC RDW Plt Count MPV Immature Gran % (Auto) Neut % (Auto) Lymph % (Auto) [place] % (Auto) Eos % (Auto) Baso % (Auto) Lymph # (Auto) [place] # (Auto) Eos # (Auto) Baso # (Auto) Abs Immat Gran (auto) Absolute Neuts (auto) Absolute Nucleated RBC Nucleated RBC % (auto) VBG pH VBG pCO2 VBG pO2 VBG HCO3 VBG O2 Saturation VBG Base Excess Sodium 143 Potassium 3.2 L Chloride 93 L Carbon Dioxide 42 H* Anion Gap 11 L BUN 40 H Creatinine 1.28 Estim Creat Clear Calc 71.4 Estimated GFR 56 POC Glucose 102 109 Random Glucose 113 Calcium 8.6 Phosphorus Magnesium Total Bilirubin AST ALT Alkaline Phosphatase Total Protein Albumin 09/29/21 09/29/21 09/29/21 05:08 05:08 05:12 WBC 5.7 RBC 3.53 L Hgb 9.8 L Hct 32.4 L MCV 91.8 MCH 27.8 MCHC 30.2 L RDW 13.2 Plt Count 102 L MPV 11.5 Immature Gran % (Auto) 0.5 H Neut % (Auto) 71.5 Lymph % (Auto) 16.1 L [place] % (Auto) 7.3 Eos % (Auto) 3.9 Baso % (Auto) 0.7 Lymph # (Auto) 0.9 L [place] # (Auto) 0.4 Eos # (Auto) 0.2 Baso # (Auto) 0.0 Abs Immat Gran (auto) 0.03 Absolute Neuts (auto) 4.0 Absolute Nucleated RBC 0.000 Nucleated RBC % (auto) 0.0 VBG pH 7.39 VBG pCO2 70 VBG pO2 78 VBG HCO3 43 H VBG O2 Saturation 95.0 VBG Base Excess 15.1 Sodium 144 Potassium 3.2 L Chloride 95 L Carbon Dioxide 42 H* Anion Gap 10 L BUN 39 H Creatinine 1.13 Estim Creat Clear Calc 80.9 Estimated GFR > 60 POC Glucose Random Glucose 106 Calcium 8.5 Phosphorus 3.9 Magnesium 2.6 Total Bilirubin 0.4 AST 14 ALT 16 Alkaline Phosphatase 73 Total Protein 5.5 L Albumin 3.3 L 09/29/21 09/29/21 07:11 11:19 WBC RBC Hgb Hct MCV MCH MCHC RDW Plt Count MPV Immature Gran % (Auto) Neut % (Auto) Lymph % (Auto) [place] % (Auto) Eos % (Auto) Baso % (Auto) Lymph # (Auto) [place] # (Auto) Eos # (Auto) Baso # (Auto) Abs Immat Gran (auto) Absolute Neuts (auto) Absolute Nucleated RBC Nucleated RBC % (auto) VBG pH VBG pCO2 VBG pO2 VBG HCO3 VBG O2 Saturation VBG Base Excess Sodium Potassium Chloride Carbon Dioxide Anion Gap BUN Creatinine Estim Creat Clear Calc Estimated GFR POC Glucose 99 127 H Random Glucose Calcium Phosphorus Magnesium Total Bilirubin AST ALT Alkaline Phosphatase Total Protein Albumin Progress Note: A&P Assessment and plan (1) Obesity hypoventilation syndrome: Status: Acute (2) Morbid obesity: Status: Acute (3) Chronic respiratory failure with hypoxia, on home O2 therapy: Status: Acute (4) Diabetes mellitus: Status: Acute (5) CHF (congestive heart failure): Status: Acute Assessment and Plan: Assessment: 66-year-old gentleman with underlying morbid obesity, KATIE with obesity hypoventilation syndrome admitted with worsening dyspnea and exacerbation of underlying chronic diastolic congestive heart failure. Plan: Neuro: No acute issues. Cardiac: diastolic congestive heart failure exacerbation improving with diuresis. Pulmonary: Acute on chronic hypoxic and hypercapnic respiratory failure secondary to obesity hyperventilation syndrome with poor compliance with noninvasive positive pressure ventilation and exacerbation of underlying diastolic congestive heart, now on and off BiPAP support. Continue to titrate off BiPAP support as tolerated. Continue with diuresis. Renal: Non oliguric, continue to monitor renal indices and urine output. Endo: No acute issues. Underlying diabetes mellitus. GI: No acute issues. ID: No acute issues Heme/Onc: No acute issues. Psych: No acute issues. Miscellaneous: No acute issues. Prophylaxis: Lovenox Diet: Diabetic Critical care time spent: 30 minutes Quality Stroke Does the patient have a stroke diagnosis?: No VTE Prior VTE?: No VTE Risk Level:: Medical - moderate - high VTE Device Contraindication: Treatment Not Indicated VTE Drug Contraindication: N/A - Med Ordered
[2021-09-29 16:01] LABS: Glucose, Whole Blood 158 mg/dL (60-115)
--- NOTE | 2021-09-29 16:01 | MHC.CM.PN ---
Met with pt and spouse: pt able to converse without BiPAP: both state goals of d/c are to return to home: no services. Spouse Maryann states she is very knowledgeable about medical needs/care and feels comfortable managing pt's needs. Pt essentially has 24/7 care provided by spouse and adult children that also reside in multifamily home. Discussed benefits of VNA for cardiopulmonary assessments and medication teaching - although reserved and reluctant, they both stated they would consider VNA if MD feels it would be necessary. Pt and spouse agree to [facility] if needed. Referral made. CM to follow
[2021-09-29] MEDS: Insulin Lispro 100 UNIT/ML 3 ML VIAL SUBCUT ×2 (16:37→21:01)
[2021-09-29] MEDS: Enoxaparin Sodium 40 MG/0.4 ML SYRINGE SUBCUT (16:37)
[2021-09-29 18:25] LABS: Anion Gap 10 (12-20); Blood Urea Nitrogen 35 mg/dL (9-16); Calcium 8.2 mg/dL (8.4-10.2); Carbon Dioxide 40 mmol/L (22-29); Chloride 96 mmol/L (96-108); Creatinine Clr Calc Pharmacy 81.7; Estimated Glomerular Filt Rate > 60; Glucose Random 153 mg/dL (60-115); Potassium 3.5 mmol/L (3.3-5.1); Sodium 142 mmol/L (135-145)
[2021-09-29 20:44] LABS: Glucose, Whole Blood 218 mg/dL (60-115)
[2021-09-29] MEDS: Tamsulosin HCL 0.4 MG CAPSULE 0.8 MG PO (21:02)
[2021-09-29] MEDS: Atorvastatin Calcium 20 MG TABLET PO (21:02)
[2021-09-30] VITALS (33 sets, daily range): BP systolic 93–133; BP diastolic 31–70; PULSE 78–93; RESP 14–30; TEMP 36.7–37.9; O2SAT 88–97; BMI 50.8
[2021-09-30 05:19] LABS: VBG Base Excess 20.6 mmol/L; VBG HCO3 49 mmol/L (22-26); VBG pCO2 81 mmHg; VBG pH 7.39 (7.32-7.43); VBG pO2 69 mmHg
[2021-09-30 05:31] LABS: MANUAL DIFF FLAG NO
[2021-09-30 05:47] LABS: Basophils Percent Auto 0.1 % (0-2); Eosinophils Absolute Auto 0.2 X10*3/uL (0.0-0.4); Eosinophils Percent Auto 2.2 % (0-4); Hematocrit 33.2 % (42.0-52.0); Hemoglobin 9.8 g/dl (14.0-18.0); Imm Gran Abs Auto 0.02 X10*3/uL (0.00-0.03); Imm Gran Pct Auto 0.3 % (0.0-0.4); Lymphocytes Absolute Auto 0.7 X10*3/uL (1.2-4.9); Lymphocytes Percent Auto 10.2 % (20-40); Mean Corpuscular HGB Conc 29.5 g/dl (31.0-36.0); Mean Corpuscular Hemoglobin 27.2 pg (27.0-33.0); Mean Corpuscular Volume 92.2 fL (80.0-98.0); Mean Platelet Volume 11.9 fL (9.4-12.4); Monocytes Absolute Auto 0.6 X10*3/uL (0.1-1.2); Monocytes Percent Auto 8.2 % (2-11); Neutrophils Absolute Auto 5.3 x10*3/uL (2.0-8.3); Platelet Count 105 X10*3/uL (160-400); Red Cell Distribution Width 13.1 % (11.0-16.0); White Blood Count 6.7 X10*3/uL (4.8-10.8)
[2021-09-30 06:27] LABS: Albumin Level 3.2 g/dL (3.5-5.0); Anion Gap 8 (12-20); Blood Urea Nitrogen 32 mg/dL (9-16); Calcium 8.1 mg/dL (8.4-10.2); Carbon Dioxide 41 mmol/L (22-29); Chloride 98 mmol/L (96-108); Creatinine Clr Calc Pharmacy 94.5; Estimated Glomerular Filt Rate > 60; Glucose Random 120 mg/dL (60-115); Magnesium 2.3 mg/dL (1.6-2.6); Phosphorus 3.2 mg/dL (2.7-4.5); Potassium 3.3 mmol/L (3.3-5.1); Sodium 144 mmol/L (135-145)
[2021-09-30] MEDS: Potassium Chloride/H20 10 MEQ/100 ML PIGGYBACK 100 MEQ IV ×5 (06:45→23:53)
[2021-09-30 06:51] LABS: Venous Blood Gas Refer to POC result
[2021-09-30 07:27] LABS: Glucose, Whole Blood 104 mg/dL (60-115)
[2021-09-30] MEDS: Fluticasone/Vilanterol 100/25 BLST.W.DEV 1 PUFF INHALE (07:44)
[2021-09-30] MEDS: acetaZOLAMIDE sodium 500 MG VIAL IVPUSH ×2 (07:59→21:10)
[2021-09-30] MEDS: Aspirin Enteric Coated 81 MG TABLET.DR PO (07:59)
[2021-09-30] MEDS: Finasteride 5 MG TABLET PO (07:59)
[2021-09-30] MEDS: Bumetanide 25 MG in Container,Empty 0 ML IVCONT (09:52)
[2021-09-30 11:30] LABS: Glucose, Whole Blood 143 mg/dL (60-115)
--- NOTE | 2021-09-30 11:37 | PM.CCPN ---
Subjective Subjective Date of Service: 09/30/21 Interval History: 66-year-old gentleman, former 10 pack-year smoker, quit 15 years prior, with underlying history of congestive heart failure, possible COPD, morbid obesity, supplemental oxygen dependent, CO2 retention, diabetes mellitus admitted on 09/25/2021 with alteration of mental status secondary to hypoglycemia, also noted to be in exacerbation of underlying congestive heart failure with significant compensated respiratory acidosis. Patient has been started on ascites 0 mitral with slow improvement in her with serum bicarb minute lower extremity edema. However, he was noncompliant with noninvasive positive pressure ventilation and this resulting in worsening CO2 retention requiring transfer to intensive care unit and utilization of rescue BiPAP therapy. Improving with diuresis. No events overnight, on and off BiPAP. Slow incremental improvements. Critical Care Time (minutes): 30 Physical Exam Vital Signs: Vital Signs: Last Vital Signs Temp 98.6 F 09/30/21 11:00 Pulse 82 09/30/21 11:00 Resp 23 H 09/30/21 11:00 BP 117/39 L 09/30/21 11:00 Pulse Ox 91 L 09/30/21 11:00 Oxygen Flow Rate 3 09/25/21 10:28 Body Mass Index 50.8 Const: General: no acute distress, alert and awake Nutritional Appearance: obese Eyes: Sclerae: sclerae normal EOM: EOMs intact bilaterally Neck: Neck: Yes no lymphadenopathy, Yes trachea midline and Yes supple Resp: Effort & Inspection: normal respiratory effort and no respiratory distress Auscultation: crackles ( Bibasilar) Cardio: Rate: regular rate Rhythm: regular rhythm Heart sounds: no gallops, no murmurs and no rubs GI: Palpation (GI): Soft to palpation and Other GI palpation findings present ( Nontender) Auscultation: normal bowel sounds Extrem: General: No clubbing, No cyanosis and Yes pedal edema ( 2+ bilateral) Objective Data Labs CBC & Chem 7: 09/30/21 05:13 09/30/21 05:13 Labs: Laboratory Results - last 24 hr 09/29/21 09/29/21 09/29/21 15:58 17:59 20:40 WBC RBC Hgb Hct MCV MCH MCHC RDW Plt Count MPV Immature Gran % (Auto) Neut % (Auto) Lymph % (Auto) [place] % (Auto) Eos % (Auto) Baso % (Auto) Lymph # (Auto) [place] # (Auto) Eos # (Auto) Baso # (Auto) Abs Immat Gran (auto) Absolute Neuts (auto) Absolute Nucleated RBC Nucleated RBC % (auto) VBG pH VBG pCO2 VBG pO2 VBG HCO3 VBG O2 Saturation VBG Base Excess Sodium 142 Potassium 3.5 Chloride 96 Carbon Dioxide 40 H* Anion Gap 10 L BUN 35 H Creatinine 1.12 Estim Creat Clear Calc 81.7 Estimated GFR > 60 POC Glucose 158 H 218 H Random Glucose 153 H D Calcium 8.2 L Phosphorus Magnesium Albumin 09/30/21 09/30/21 09/30/21 05:13 05:13 05:13 WBC 6.7 RBC 3.60 L Hgb 9.8 L Hct 33.2 L MCV 92.2 MCH 27.2 MCHC 29.5 L RDW 13.1 Plt Count 105 L MPV 11.9 Immature Gran % (Auto) 0.3 Neut % (Auto) 79.0 H Lymph % (Auto) 10.2 L [place] % (Auto) 8.2 Eos % (Auto) 2.2 Baso % (Auto) 0.1 Lymph # (Auto) 0.7 L [place] # (Auto) 0.6 Eos # (Auto) 0.2 Baso # (Auto) 0.0 Abs Immat Gran (auto) 0.02 Absolute Neuts (auto) 5.3 Absolute Nucleated RBC 0.000 Nucleated RBC % (auto) 0.0 VBG pH 7.39 VBG pCO2 81 VBG pO2 69 VBG HCO3 49 H VBG O2 Saturation 92.0 VBG Base Excess 20.6 Sodium 144 Potassium 3.3 Chloride 98 Carbon Dioxide 41 H* Anion Gap 8 L BUN 32 H Creatinine 0.97 Estim Creat Clear Calc 94.5 Estimated GFR > 60 POC Glucose Random Glucose 120 H Calcium 8.1 L Phosphorus 3.2 Magnesium 2.3 Albumin 3.2 L 09/30/21 09/30/21 07:23 11:26 WBC RBC Hgb Hct MCV MCH MCHC RDW Plt Count MPV Immature Gran % (Auto) Neut % (Auto) Lymph % (Auto) [place] % (Auto) Eos % (Auto) Baso % (Auto) Lymph # (Auto) [place] # (Auto) Eos # (Auto) Baso # (Auto) Abs Immat Gran (auto) Absolute Neuts (auto) Absolute Nucleated RBC Nucleated RBC % (auto) VBG pH VBG pCO2 VBG pO2 VBG HCO3 VBG O2 Saturation VBG Base Excess Sodium Potassium Chloride Carbon Dioxide Anion Gap BUN Creatinine Estim Creat Clear Calc Estimated GFR POC Glucose 104 143 H Random Glucose Calcium Phosphorus Magnesium Albumin Progress Note: A&P Assessment and plan (1) Obesity hypoventilation syndrome: Status: Acute (2) Morbid obesity: Status: Acute (3) Chronic respiratory failure with hypoxia, on home O2 therapy: Status: Acute (4) Diabetes mellitus: Status: Acute (5) CHF (congestive heart failure): Status: Acute Assessment and Plan: Assessment: 66-year-old gentleman with underlying morbid obesity, KATIE with obesity hypoventilation syndrome admitted with worsening dyspnea and exacerbation of underlying chronic diastolic congestive heart failure. Plan: Neuro: No acute issues. Cardiac: diastolic congestive heart failure exacerbation improving with diuresis. Pulmonary: Acute on chronic hypoxic and hypercapnic respiratory failure secondary to obesity hyperventilation syndrome with poor compliance with noninvasive positive pressure ventilation and exacerbation of underlying diastolic congestive heart, now on and off BiPAP support. Continue to titrate off BiPAP support as tolerated. Continue with diuresis. Now with slow incremental improvement. Renal: Non oliguric, continue to monitor renal indices and urine output. Endo: No acute issues. Underlying diabetes mellitus. GI: No acute issues. ID: No acute issues Heme/Onc: No acute issues. Psych: No acute issues. Miscellaneous: No acute issues. Prophylaxis: Lovenox Diet: Diabetic Critical care time spent: 30 minutes Quality Stroke Does the patient have a stroke diagnosis?: No VTE Prior VTE?: No VTE Risk Level:: Medical - moderate - high VTE Device Contraindication: Treatment Not Indicated VTE Drug Contraindication: N/A - Med Ordered
--- NOTE | 2021-09-30 15:44 | MHC.CM.PN ---
Pt continues on a Bumex gtt in ICU: 4+ Bilat lower extremity edema present. Pt will require 2-3 additional days of care and may then be ready to d/c. Pt and spouse continue to support home with family and possible VNA but no STR/SNF. [facility] referrals placed today as pt's choice, [facility] cannot accept. CM to follow.
[2021-09-30 16:41] LABS: Glucose, Whole Blood 141 mg/dL (60-115)
[2021-09-30] MEDS: Enoxaparin Sodium 40 MG/0.4 ML SYRINGE SUBCUT (17:14)
[2021-09-30] MEDS: 0.9 % Sodium Chloride Flush 3 ML SYRINGE IVFLUSH ×2 (17:14→23:52)
--- NOTE | 2021-09-30 18:37 | PC.NURSE ---
Patient remains in ICU today for intermittent use of rescue BiPAP. Settings 10/16 with 40% When on NC, his liter flow is 3-4L/min. SpO2 high 80s to 95% today. BiPAP back on after lunch when NC SpO2 dropped to 70s. Bumex drip running at 0.25mg/hr. Held from 11:25 until 15:30 for MAPs below 60. Urine output ranged from 50-150mL/hr. Edema extensive to BLEs. Tolerating PO intake when awake for meals. Blood sugars not requiring any coverge today. at bedside twice, updated on status.
[2021-09-30 19:00] LABS: Anion Gap 10 (12-20); Blood Urea Nitrogen 29 mg/dL (9-16); Calcium 8.4 mg/dL (8.4-10.2); Carbon Dioxide 40 mmol/L (22-29); Chloride 98 mmol/L (96-108); Creatinine Clr Calc Pharmacy 79.7; Estimated Glomerular Filt Rate > 60; Glucose Random 197 mg/dL (60-115); Potassium 3.6 mmol/L (3.3-5.1); Sodium 144 mmol/L (135-145)
[2021-09-30 20:18] LABS: Glucose, Whole Blood 235 mg/dL (60-115)
--- NOTE | 2021-09-30 21:01 | PC.NURSE ---
pt has periods of intermittent alertness and confusion. at this time pt is a&ox4
[2021-09-30] MEDS: Atorvastatin Calcium 20 MG TABLET PO (21:10)
[2021-09-30] MEDS: Insulin Lispro 100 UNIT/ML 3 ML VIAL SUBCUT (21:10)
[2021-09-30] MEDS: Tamsulosin HCL 0.4 MG CAPSULE 0.8 MG PO (21:10)
[2021-09-30 22:30] LABS: Glucose, Whole Blood 194 mg/dL (60-115)
[2021-10-01] VITALS (29 sets, daily range): BP systolic 78–159; BP diastolic 21–76; PULSE 64–91; RESP 14–28; TEMP 36.7–38; O2SAT 89–96; BMI 50.0
[2021-10-01] MEDS: Potassium Chloride/H20 10 MEQ/100 ML PIGGYBACK 100 MEQ IV ×3 (01:05→03:14)
[2021-10-01 05:31] LABS: VBG Base Excess 21.4 mmol/L; VBG HCO3 50 mmol/L (22-26); VBG pCO2 79 mmHg; VBG pH 7.41 (7.32-7.43); VBG pO2 71 mmHg
[2021-10-01 05:56] LABS: Eosinophils Percent Auto 5.1 % (0-4); Hematocrit 33.3 % (42.0-52.0); Mean Platelet Volume 11.8 fL (9.4-12.4); PLT CLUMP 1; Red Cell Distribution Width 13.2 % (11.0-16.0); SCAN SMEAR FLAG 1
[2021-10-01 05:58] LABS: Basophils Percent Auto 0.1 % (0-2); Eosinophils Absolute Auto 0.4 X10*3/uL (0.0-0.4); Hemoglobin 9.9 g/dl (14.0-18.0); Imm Gran Abs Auto 0.03 X10*3/uL (0.00-0.03); Imm Gran Pct Auto 0.4 % (0.0-0.4); Lymphocytes Absolute Auto 0.8 X10*3/uL (1.2-4.9); Mean Corpuscular HGB Conc 29.7 g/dl (31.0-36.0); Mean Corpuscular Hemoglobin 27.1 pg (27.0-33.0); Mean Corpuscular Volume 91.2 fL (80.0-98.0); Monocytes Absolute Auto 0.9 X10*3/uL (0.1-1.2); Monocytes Percent Auto 10.6 % (2-11); Neutrophils Percent Auto 73.8 % (45-73); Platelet Count 109 X10*3/uL (160-400); Red Blood Count 3.65 X10*6/uL (4.60-5.80); White Blood Count 8.1 X10*3/uL (4.8-10.8)
[2021-10-01 05:59] LABS: MANUAL DIFF FLAG NO
[2021-10-01 06:11] LABS: Albumin Level 3.3 g/dL (3.5-5.0); Anion Gap 14 (12-20); Blood Urea Nitrogen 27 mg/dL (9-16); Calcium 8.5 mg/dL (8.4-10.2); Carbon Dioxide 37 mmol/L (22-29); Chloride 99 mmol/L (96-108); Estimated Glomerular Filt Rate > 60; Glucose Random 133 mg/dL (60-115); Magnesium 2.2 mg/dL (1.6-2.6); Potassium 3.6 mmol/L (3.3-5.1); Sodium 146 mmol/L (135-145)
[2021-10-01 06:49] LABS: Venous Blood Gas Refer to POC result
[2021-10-01 07:29] LABS: Glucose, Whole Blood 129 mg/dL (60-115)
[2021-10-01] MEDS: acetaZOLAMIDE sodium 500 MG VIAL IVPUSH ×2 (07:42→22:10)
[2021-10-01] MEDS: 0.9 % Sodium Chloride Flush 3 ML SYRINGE IVFLUSH ×3 (07:43→23:55)
[2021-10-01] MEDS: Finasteride 5 MG TABLET PO (07:43)
[2021-10-01] MEDS: Aspirin Enteric Coated 81 MG TABLET.DR PO (07:43)
--- NOTE | 2021-10-01 09:43 | P.PNCC_ITS ---
Subjective Subjective Date of Service: 10/01/21 Interval History: 66-year-old gentleman, former 10 pack-year smoker, quit 15 years prior, with underlying history of congestive heart failure, possible COPD, morbid obesity, supplemental oxygen dependent, CO2 retention, diabetes mellitus admitted on 09/25/2021 with alteration of mental status secondary to hypoglycemia, also noted to be in exacerbation of underlying congestive heart failure with significant compensated respiratory acidosis. Patient has been started on ascites 0 mitral with slow improvement in her with serum bicarb anali te lower extremity edema. However, he was noncompliant with noninvasive positive pressure ventilation and this resulting in worsening CO2 retention requiring transfer to intensive care unit and utilization of rescue BiPAP therapy. Improving with diuresis. No events overnight, on and off BiPAP. Slow incremental improvements. Critical Care Time (minutes): 30 Physical Exam Vital Signs: Vital Signs: Last Vital Signs Temp 99.7 F 10/01/21 09:00 Pulse 85 10/01/21 09:00 Resp 23 H 10/01/21 09:00 BP 119/49 L 10/01/21 09:00 Pulse Ox 96 10/01/21 09:00 Oxygen Flow Rate 3 09/25/21 10:28 Body Mass Index 50.0 Const: General: no acute distress, alert and awake Nutritional Appearance: obese Eyes: Sclerae: sclerae normal EOM: EOMs intact bilaterally Neck: Neck: Yes no lymphadenopathy, Yes trachea midline and Yes supple Resp: Effort & Inspection: normal respiratory effort and no respiratory di stress Auscultation: crackles (Bibasilar) Cardio: Rate: regular rate Rhythm: regular rhythm Heart sounds: no gallops, no murmurs and no rubs GI: Palpation (GI): Soft to palpation and Other GI palpation findings present ( Nontender) Auscultation: normal bowel sounds Extrem: General: No clubbing, No cyanosis and Yes pedal edema ( 2+ bilateral) Objective Data Labs CBC & Chem 7: 10/01/21 05:24 10/01/21 05:19 Labs: Laboratory Results - last 24 hr 09/30/21 09/30/21 09/30/21 11:26 16:38 18:27 WBC RBC Hgb Hct MCV MCH MCHC RDW Plt Count MPV Immature Gran % (Auto) Neut % (Auto) Lymph % (Auto) [place] % (Auto) Eos % (Auto) Baso % (Auto) Lymph # (Auto) [place] # (Auto) Eos # (Auto) Baso # (Auto) Abs Immat Gran (auto) Absolute Neuts (auto) Absolute Nucleated RBC Nucleated RBC % (auto) VBG pH VBG pCO2 VBG pO2 VBG HCO3 VBG O2 Saturation VBG Base Excess Sodium 144 Potassium 3.6 Chloride 98 Carbon Dioxide 40 H* Anion Gap 10 L BUN 29 H Creatinine 1.15 Estim Creat Clear Calc 79.7 Estimated GFR > 60 POC Glucose 143 H 141 H Random Glucose 197 H D Calcium 8.4 Phosphorus Magnesium Albumin 09/30/21 09/30/21 10/01/21 20:14 22:27 05:19 WBC RBC Hgb Hct MCV MCH MCHC RDW Plt Count MPV Immature Gran % (Auto) Neut % (Auto) Lymph % (Auto) [place] % (Auto) Eos % (Auto) Baso % (Auto) Lymph # (Auto) [place] # (Auto) Eos # (Auto) Baso # (Auto) Abs Immat Gran (auto) Absolute Neuts (auto) Absolute Nucleated RBC Nucleated RBC % (auto) VBG pH VBG pCO2 VBG pO2 VBG HCO3 VBG O2 Saturation VBG Base Excess Sodium 146 H Potassium 3.6 Chloride 99 Carbon Dioxide 37 H Anion Gap 14 BUN 27 H Creatinine 1.15 Estim Creat Clear Calc 79.0 Estimated GFR > 60 POC Glucose 235 H 194 H Random Glucose 133 H Calcium 8.5 Phosphorus 3.0 Magnesium 2.2 Albumin 3.3 L 10/01/21 10/01/21 10/01/21 05:24 05:25 07:26 WBC 8.1 RBC 3.65 L Hgb 9.9 L Hct 33.3 L MCV 91.2 MCH 27.1 MCHC 29.7 L RDW 13.2 Plt Count 109 L MPV 11.8 Immature Gran % (Auto) 0.4 Neut % (Auto) 73.8 H Lymph % (Auto) 10.0 L [place] % (Auto) 10.6 Eos % (Auto) 5.1 H Baso % (Auto) 0.1 Lymph # (Auto) 0.8 L [place] # (Auto) 0.9 Eos # (Auto) 0.4 Baso # (Auto) 0.0 Abs Immat Gran (auto) 0.03 Absolute Neuts (auto) 6.0 Absolute Nucleated RBC 0.000 Nucleated RBC % (auto) 0.0 VBG pH 7.41 VBG pCO2 79 VBG pO2 71 VBG HCO3 50 H VBG O2 Saturation 93.0 VBG Base Excess 21.4 Sodium Potassium Chloride Carbon Dioxide Anion Gap BUN Creatinine Estim Creat Clear Calc Estimated GFR POC Glucose 129 H Random Glucose Calcium Phosphorus Magnesium Albumin Progress Note: A&P Assessment and plan (1) Obesity hypoventilation syndrome: Status: Acute (2) Morbid obesity: Status: Acute (3) Chronic respiratory failure with hypoxia, on home O2 therapy: Status: Acute (4) Diabetes mellitus: Status: Acute (5) CHF (congestive heart failure): Status: Acute Assessment and Plan: Assessment: 66-year-old gentleman with underlying morbid obesity, KATIE with obesity hypoventilation syndrome admitted with worsening dyspnea and exacerbation of underlying chronic diastolic congestive heart failure. Plan: Neuro: No acute issues. Cardiac: diastolic congestive heart failure exacerbation improving with diuresis, diuresed 6 L so far. Pulmonary: Acute on chronic hypoxic and hypercapnic respiratory failure secondary to obesity hyperventilation syndrome with poor compliance with noninvasive positive pressure ventilation and exacerbation of underlying diastolic congestive heart, now on and off BiPAP support. Continue to titrate off BiPAP support as tolerated. Continue with diuresis. Now with slow incremental improvement. Renal: Non oliguric, continue to monitor renal indices and urine output. Endo: No acute issues. Underlying diabetes mellitus. GI: No acute issues. ID: No acute issues Heme/Onc: No acute issues. Psych: No acute issues. Miscellaneous: No acute issues. Prophylaxis: Lovenox Diet: Diabetic Critical care time spent: 30 minutes Quality Stroke Does the patient have a stroke diagnosis?: No VTE Prior VTE?: No VTE Risk Level:: Medical - moderate - high VTE Device Contraindication: Treatment Not Indicated VTE Drug Contraindication: N/A - Med Ordered
[2021-10-01] MEDS: Bumetanide 25 MG in Container,Empty 0 ML IVCONT (10:52)
[2021-10-01 11:45] LABS: Glucose, Whole Blood 146 mg/dL (60-115)
[2021-10-01 16:24] LABS: Glucose, Whole Blood 161 mg/dL (60-115)
[2021-10-01] MEDS: Enoxaparin Sodium 40 MG/0.4 ML SYRINGE SUBCUT (16:28)
[2021-10-01] MEDS: Insulin Lispro 100 UNIT/ML 3 ML VIAL SUBCUT ×2 (16:28→22:16)
[2021-10-01 18:37] LABS: Anion Gap 12 (12-20); Blood Urea Nitrogen 27 mg/dL (9-16); Calcium 8.5 mg/dL (8.4-10.2); Carbon Dioxide 37 mmol/L (22-29); Chloride 99 mmol/L (96-108); Creatinine Clr Calc Pharmacy 74.4; Estimated Glomerular Filt Rate 59; Glucose Random 242 mg/dL (60-115); Potassium 3.8 mmol/L (3.3-5.1); Sodium 144 mmol/L (135-145)
[2021-10-01] MEDS: Albumin Human 25 % 100 ML IV (20:02)
[2021-10-01 20:24] LABS: Glucose, Whole Blood 210 mg/dL (60-115)
[2021-10-01] MEDS: Phenylephrine HCL 100 MG in 0.9 % Sodium Chloride 250 ML 10.31 MG IVCONT (21:26)
[2021-10-01 22:40] LABS: ABG Base Excess 14.2 mmol/L; ABG HCO3 43 mmol/L (22-26); ABG pCO2 78 mmHg (32-45); ABG pCO2 TC 80 mmHg (32-45); ABG pH 7.34 (7.35-7.45); ABG pH TC 7.33 (7.35-7.45); ABG pO2 81 mmHg (83-108); ABG pO2 TC 85 (83-108)
[2021-10-01 22:50] LABS: Glucose, Whole Blood 162 mg/dL (60-115)
[2021-10-01 23:53] LABS: ABG Refer to POC result
[2021-10-02] VITALS (28 sets, daily range): BP systolic 100–143; BP diastolic 32–71; PULSE 76–99; RESP 13–32; TEMP 37.3–37.8; O2SAT 85–98; BMI 49.1
[2021-10-02 05:19] LABS: VBG Base Excess 15.9 mmol/L; VBG HCO3 44 mmol/L (22-26); VBG pCO2 73 mmHg; VBG pH 7.38 (7.32-7.43); VBG pO2 67 mmHg
[2021-10-02 05:45] LABS: MANUAL DIFF FLAG SCAN; Mean Corpuscular HGB Conc 29.7 g/dl (31.0-36.0); Mean Corpuscular Hemoglobin 27.1 pg (27.0-33.0); Mean Corpuscular Volume 91.2 fL (80.0-98.0); Mean Platelet Volume 11.9 fL (9.4-12.4); PLT CLUMP 1; Red Cell Distribution Width 13.2 % (11.0-16.0); SCAN SMEAR FLAG 1
[2021-10-02 05:47] LABS: Basophils Percent Auto 0.1 % (0-2); Eosinophils Absolute Auto 0.4 X10*3/uL (0.0-0.4); Eosinophils Percent Auto 5.7 % (0-4); Hematocrit 34.3 % (42.0-52.0); Hemoglobin 10.2 g/dl (14.0-18.0); Imm Gran Abs Auto 0.03 X10*3/uL (0.00-0.03); Imm Gran Pct Auto 0.4 % (0.0-0.4); Lymphocytes Absolute Auto 0.9 X10*3/uL (1.2-4.9); Lymphocytes Percent Auto 12.5 % (20-40); Monocytes Absolute Auto 0.7 X10*3/uL (0.1-1.2); Monocytes Percent Auto 9.9 % (2-11); Neutrophils Absolute Auto 4.9 x10*3/uL (2.0-8.3); Neutrophils Percent Auto 71.4 % (45-73); Platelet Count 104 X10*3/uL (160-400); Red Blood Count 3.76 X10*6/uL (4.60-5.80); White Blood Count 6.9 X10*3/uL (4.8-10.8)
[2021-10-02 06:04] LABS: Albumin Level 3.5 g/dL (3.5-5.0); Anion Gap 15 (12-20); Blood Urea Nitrogen 27 mg/dL (9-16); Calcium 8.7 mg/dL (8.4-10.2); Carbon Dioxide 37 mmol/L (22-29); Chloride 99 mmol/L (96-108); Estimated Glomerular Filt Rate > 60; Glucose Random 122 mg/dL (60-115); Magnesium 2.3 mg/dL (1.6-2.6); Phosphorus 3.6 mg/dL (2.7-4.5); Potassium 3.2 mmol/L (3.3-5.1); Sodium 148 mmol/L (135-145)
--- NOTE | 2021-10-02 06:22 | PC.NURSE ---
CARE ASSUMED 23:15...INITIALLY SOMNOLENT AT HS...WEAKLY CHRISTINE TO COMMANDS...BIPAP TITRATED TO 15/5 & FIO2 35% AT SHIFT CHANGE...RR 22-24...Ve 10-12 l/m..GRADUALLY MORE AWAKE AND COHERANT OVERNIGHT..REMAINS VAGUE BUT CONVERSES...CHRISTINE..CONTINUES ON BUMEX DRIP PER JAN...ARELLANO DRAINING LARGE AMOUNTS YELLOW URINE...VSS
[2021-10-02 06:28] LABS: SLIDE REVIEW VERIFIED
[2021-10-02 07:18] LABS: Glucose, Whole Blood 127 mg/dL (60-115)
[2021-10-02] MEDS: Finasteride 5 MG TABLET PO (07:29)
[2021-10-02] MEDS: Aspirin Enteric Coated 81 MG TABLET.DR PO (07:29)
[2021-10-02] MEDS: Potassium Chloride/H20 10 MEQ/100 ML PIGGYBACK 100 MEQ IV (07:30)
[2021-10-02] MEDS: 0.9 % Sodium Chloride Flush 3 ML SYRINGE IVFLUSH ×2 (07:30→16:31)
[2021-10-02 07:35] LABS: Venous Blood Gas Refer to POC result
[2021-10-02] MEDS: acetaZOLAMIDE sodium 500 MG VIAL IVPUSH ×2 (09:58→20:55)
--- NOTE | 2021-10-02 10:10 | PM.CCPN ---
Subjective Subjective Date of Service: 10/02/21 Interval History: ICU day 5 for acute on chronic hypoxic and hypercapnic respiratory failure, obesity hypoventilation syndrome, and diastolic dysfunction. 66-year-old gentleman, former 10 pack-year smoker, quit 15 years prior, with underlying history of congestive heart failure, possible COPD, morbid obesity, supplemental oxygen dependent, CO2 retention, diabetes mellitus admitted on 09/25/2021 with alteration of mental status secondary to hypoglycemia, also noted to be in exacerbation of underlying congestive heart failure with significant compensated respiratory acidosis. Patient has been started on ascites 0 mitral with slow improvement in her with serum bicarb minute lower extremity edema. However, he was noncompliant with noninvasive positive pressure ventilation and this resulting in worsening CO2 retention requiring transfer to intensive care unit and utilization of rescue BiPAP therapy. Improving with diuresis. No events overnight, on and off BiPAP. Continues with slow incremental improvements. Critical Care Time (minutes): 30 Physical Exam Vital Signs: Vital Signs: Last Vital Signs Temp 99.7 F 10/02/21 10:00 Pulse 87 10/02/21 10:00 Resp 19 10/02/21 10:00 BP 126/36 L 10/02/21 10:00 Pulse Ox 92 10/02/21 10:00 Oxygen Flow Rate 3 09/25/21 10:28 Body Mass Index 49.1 Const: General: no acute distress, alert and awake Nutritional Appearance: obese Eyes: Sclerae: sclerae normal EOM: EOMs intact bilaterally Neck: Neck: Yes no lymphadenopathy, Yes trachea midline and Yes supple Resp: Effort & Inspection: normal respiratory effort and no respiratory distress Auscultation: clear to auscultation bilaterally Cardio: Rate: regular rate Rhythm: regular rhythm Heart sounds: no gallops, no murmurs and no rubs GI: Palpation (GI): Soft to palpation and Other GI palpation findings present ( Nontender) Auscultation: normal bowel sounds Extrem: General: No clubbing, No cyanosis and Yes pedal edema ( 2+ bilateral) Objective Data Labs CBC & Chem 7: 10/02/21 05:08 10/02/21 05:08 Labs: Laboratory Results - last 24 hr 10/01/21 10/01/21 10/01/21 11:42 16:18 17:46 WBC RBC Hgb Hct MCV MCH MCHC RDW Plt Count MPV Immature Gran % (Auto) Neut % (Auto) Lymph % (Auto) [place] % (Auto) Eos % (Auto) Baso % (Auto) Lymph # (Auto) [place] # (Auto) Eos # (Auto) Baso # (Auto) Abs Immat Gran (auto) Absolute Neuts (auto) Absolute Nucleated RBC Nucleated RBC % (auto) Smear Tech's Comments O2 Saturation ABG pH at Pt Temp ABG pH (Temp Correct) ABG pCO2 at Pt Temp ABG pCO2 (Temp Corrct ABG pO2 at Pt Temp ABG pO2 (Temp Correct ABG HCO3 ABG Base Excess (Actual) VBG pH VBG pCO2 VBG pO2 VBG HCO3 VBG O2 Saturation VBG Base Excess Sodium 144 Potassium 3.8 Chloride 99 Carbon Dioxide 37 H Anion Gap 12 BUN 27 H Creatinine 1.22 Estim Creat Clear Calc 74.4 Estimated GFR 59 POC Glucose 146 H 161 H Random Glucose 242 H D Calcium 8.5 Phosphorus Magnesium Albumin 10/01/21 10/01/21 10/01/21 20:20 22:29 22:47 WBC RBC Hgb Hct MCV MCH MCHC RDW Plt Count MPV Immature Gran % (Auto) Neut % (Auto) Lymph % (Auto) [place] % (Auto) Eos % (Auto) Baso % (Auto) Lymph # (Auto) [place] # (Auto) Eos # (Auto) Baso # (Auto) Abs Immat Gran (auto) Absolute Neuts (auto) Absolute Nucleated RBC Nucleated RBC % (auto) Smear Tech's Comments O2 Saturation 95.0 ABG pH at Pt Temp 7.34 L ABG pH (Temp Correct) 7.33 L ABG pCO2 at Pt Temp 78 H* ABG pCO2 (Temp Corrct 80 H* ABG pO2 at Pt Temp 81 L ABG pO2 (Temp Correct 85 ABG HCO3 43 H ABG Base Excess (Actual) 14.2 VBG pH VBG pCO2 VBG pO2 VBG HCO3 VBG O2 Saturation VBG Base Excess Sodium Potassium Chloride Carbon Dioxide Anion Gap BUN Creatinine Estim Creat Clear Calc Estimated GFR POC Glucose 210 H 162 H Random Glucose Calcium Phosphorus Magnesium Albumin 10/02/21 10/02/21 10/02/21 05:08 05:08 05:12 WBC 6.9 RBC 3.76 L Hgb 10.2 L Hct 34.3 L MCV 91.2 MCH 27.1 MCHC 29.7 L RDW 13.2 Plt Count 104 L MPV 11.9 Immature Gran % (Auto) 0.4 Neut % (Auto) 71.4 Lymph % (Auto) 12.5 L [place] % (Auto) 9.9 Eos % (Auto) 5.7 H Baso % (Auto) 0.1 Lymph # (Auto) 0.9 L [place] # (Auto) 0.7 Eos # (Auto) 0.4 Baso # (Auto) 0.0 Abs Immat Gran (auto) 0.03 Absolute Neuts (auto) 4.9 Absolute Nucleated RBC 0.000 Nucleated RBC % (auto) 0.0 Smear Tech's Comments VERIFIED O2 Saturation ABG pH at Pt Temp ABG pH (Temp Correct) ABG pCO2 at Pt Temp ABG pCO2 (Temp Corrct ABG pO2 at Pt Temp ABG pO2 (Temp Correct ABG HCO3 ABG Base Excess (Actual) VBG pH 7.38 VBG pCO2 73 VBG pO2 67 VBG HCO3 44 H VBG O2 Saturation 92.0 VBG Base Excess 15.9 Sodium 148 H Potassium 3.2 L Chloride 99 Carbon Dioxide 37 H Anion Gap 15 BUN 27 H Creatinine 1.15 Estim Creat Clear Calc 79.0 Estimated GFR > 60 POC Glucose Random Glucose 122 H D Calcium 8.7 Phosphorus 3.6 Magnesium 2.3 Albumin 3.5 10/02/21 07:15 WBC RBC Hgb Hct MCV MCH MCHC RDW Plt Count MPV Immature Gran % (Auto) Neut % (Auto) Lymph % (Auto) [place] % (Auto) Eos % (Auto) Baso % (Auto) Lymph # (Auto) [place] # (Auto) Eos # (Auto) Baso # (Auto) Abs Immat Gran (auto) Absolute Neuts (auto) Absolute Nucleated RBC Nucleated RBC % (auto) Smear Tech's Comments O2 Saturation ABG pH at Pt Temp ABG pH (Temp Correct) ABG pCO2 at Pt Temp ABG pCO2 (Temp Corrct ABG pO2 at Pt Temp ABG pO2 (Temp Correct ABG HCO3 ABG Base Excess (Actual) VBG pH VBG pCO2 VBG pO2 VBG HCO3 VBG O2 Saturation VBG Base Excess Sodium Potassium Chloride Carbon Dioxide Anion Gap BUN Creatinine Estim Creat Clear Calc Estimated GFR POC Glucose 127 H Random Glucose Calcium Phosphorus Magnesium Albumin Progress Note: A&P Assessment and plan (1) Obesity hypoventilation syndrome: Status: Acute (2) Morbid obesity: Status: Acute (3) Chronic respiratory failure with hypoxia, on home O2 therapy: Status: Acute (4) Diabetes mellitus: Status: Acute (5) CHF (congestive heart failure): Status: Acute Assessment and Plan: Assessment: 66-year-old gentleman with underlying morbid obesity, KATIE with obesity hypoventilation syndrome admitted with worsening dyspnea and exacerbation of underlying chronic diastolic congestive heart failure. Plan: Neuro: No acute issues. Cardiac: diastolic congestive heart failure exacerbation improving with diuresis, diuresed 8 L so far. Pulmonary: Acute on chronic hypoxic and hypercapnic respiratory failure secondary to obesity hyperventilation syndrome with poor compliance with noninvasive positive pressure ventilation and exacerbation of underlying diastolic congestive heart, now on and off BiPAP support. Continue to titrate off BiPAP support as tolerated. Continue with diuresis. Continues with slow incremental improvement. Renal: Non oliguric, continue to monitor renal indices and urine output. Endo: No acute issues. Underlying diabetes mellitus. GI: No acute issues. ID: No acute issues Heme/Onc: No acute issues. Psych: No acute issues. Miscellaneous: No acute issues. Prophylaxis: Lovenox Diet: Diabetic Critical care time spent: 30 minutes Quality Stroke Does the patient have a stroke diagnosis?: No VTE Prior VTE?: No VTE Risk Level:: Medical - moderate - high VTE Device Contraindication: Treatment Not Indicated VTE Drug Contraindication: N/A - Med Ordered
[2021-10-02] MEDS: Potassium Chloride Packet 20 MEQ PACKET 60 MEQ PO (10:58)
[2021-10-02] MEDS: Bumetanide 25 MG in Container,Empty 0 ML IVCONT (11:32)
[2021-10-02 12:02] LABS: Glucose, Whole Blood 141 mg/dL (60-115)
[2021-10-02] MEDS: Acetaminophen 325 MG TABLET 650 MG PO (13:27)
[2021-10-02 16:19] LABS: Glucose, Whole Blood 144 mg/dL (60-115)
[2021-10-02] MEDS: Enoxaparin Sodium 40 MG/0.4 ML SYRINGE SUBCUT (16:31)
[2021-10-02 18:49] LABS: Anion Gap 13 (12-20); Blood Urea Nitrogen 27 mg/dL (9-16); Calcium 8.5 mg/dL (8.4-10.2); Carbon Dioxide 38 mmol/L (22-29); Chloride 99 mmol/L (96-108); Creatinine Clr Calc Pharmacy 74.2; Estimated Glomerular Filt Rate 60; Glucose Random 227 mg/dL (60-115); Potassium 3.6 mmol/L (3.3-5.1); Sodium 146 mmol/L (135-145)
[2021-10-02 20:42] LABS: Glucose, Whole Blood 210 mg/dL (60-115)
[2021-10-02] MEDS: Atorvastatin Calcium 20 MG TABLET PO (20:55)
[2021-10-02] MEDS: Tamsulosin HCL 0.4 MG CAPSULE 0.8 MG PO (20:55)
[2021-10-02] MEDS: Insulin Lispro 100 UNIT/ML 3 ML VIAL SUBCUT (20:56)
[2021-10-03] VITALS (34 sets, daily range): BP systolic 76–167; BP diastolic 24–75; PULSE 69–91; RESP 9–28; TEMP 37.3–38.1; O2SAT 89–97; BMI 50.4
--- NOTE | 2021-10-03 04:37 | PC.NURSE ---
Addendum entered by Baljeet Bacon RN 10/03/21 06:17: At about 6 am, patient coughed up a small amount of greenish colored thick sputum; PA notified, new order for sputum cx. Patient is aware and will ring when able to produce more sputum. Temp overnight, Tmax 100.2. PA aware and new order for CXR as well. BP soft this mornin/41, MAP 59; PA aware and stopped bumex gtt. Addendum entered by Baljeet Bacon RN 10/03/21 04:47: Continues on Bumex gtt. Frequent reorientation with modest good effect, continues to be delerious/forgetful/disoriented. PA aware. Original Note: Assumed care at 19:00 from RYAN Perez. Patient drowsy/lethargic, arousable to sternal rub and light pain; forgetful; disoriented to situation, time, vague about place and subsequently more confused about place; dependent, lethargic. PERRL, follows commands with stimulation, moves all extremities, sensory tactile stimuli intact. Patient continues on BiPap when drowsy or sleeping and was titrated down from 10 lpm nunse to 5 LPM nunes. Very drowsy, had break from Bipap from 20:30-21:30, but otherwise on Bipap all night. Patient SpO2 mostly in the 90-94% range with occasional desaturations to the 85-88% range during deep sleep with Bipap on. Patient with diminished lung sounds throughout, known right-sided pleural effusion is improving per most recent CXR on 09/28/21. Patient with distant heart sounds, and sinus rhythm on monitor with occasionol PVCs; BP have been soft with occasional MAP <65, and positional low BPs. PA aware and ok with MAP>60. Patient with Large soft nontender abdomen, hypoactive BS. Edematous legs with some improvement. 2 liters fluid negative this shift.
[2021-10-03] MEDS: 0.9 % Sodium Chloride Flush 3 ML SYRINGE IVFLUSH ×3 (05:23→15:43)
[2021-10-03 05:29] LABS: VBG Base Excess 19.6 mmol/L; VBG HCO3 47 mmol/L (22-26); VBG pCO2 71 mmHg; VBG pH 7.42 (7.32-7.43); VBG pO2 61 mmHg
[2021-10-03 05:47] LABS: Basophils Percent Auto 0.3 % (0-2); Hemoglobin 9.6 g/dl (14.0-18.0); Imm Gran Abs Auto 0.03 X10*3/uL (0.00-0.03); Imm Gran Pct Auto 0.4 % (0.0-0.4); PLT CLUMP 1; Red Cell Distribution Width 13.1 % (11.0-16.0); SCAN SMEAR FLAG 1
[2021-10-03 05:48] LABS: Eosinophils Absolute Auto 0.5 X10*3/uL (0.0-0.4); Hematocrit 32.8 % (42.0-52.0); Lymphocytes Absolute Auto 0.9 X10*3/uL (1.2-4.9); Lymphocytes Percent Auto 11.3 % (20-40); Mean Corpuscular HGB Conc 29.3 g/dl (31.0-36.0); Mean Corpuscular Hemoglobin 27.1 pg (27.0-33.0); Mean Corpuscular Volume 92.7 fL (80.0-98.0); Mean Platelet Volume 11.3 fL (9.4-12.4); Monocytes Absolute Auto 0.7 X10*3/uL (0.1-1.2); Monocytes Percent Auto 9.3 % (2-11); Neutrophils Absolute Auto 5.8 x10*3/uL (2.0-8.3); Neutrophils Percent Auto 72.7 % (45-73); Platelet Count 113 X10*3/uL (160-400); Red Blood Count 3.54 X10*6/uL (4.60-5.80)
[2021-10-03 05:50] LABS: MANUAL DIFF FLAG NO
[2021-10-03 06:02] LABS: Albumin Level 3.3 g/dL (3.5-5.0); Anion Gap 13 (12-20); Blood Urea Nitrogen 31 mg/dL (9-16); Calcium 8.6 mg/dL (8.4-10.2); Carbon Dioxide 37 mmol/L (22-29); Chloride 102 mmol/L (96-108); Estimated Glomerular Filt Rate > 60; Glucose Random 135 mg/dL (60-115); Magnesium 2.3 mg/dL (1.6-2.6); Phosphorus 3.4 mg/dL (2.7-4.5); Potassium 3.4 mmol/L (3.3-5.1); Sodium 149 mmol/L (135-145)
[2021-10-03 06:12] LABS: Venous Blood Gas Refer to POC result
[2021-10-03 07:15] LABS: Glucose, Whole Blood 128 mg/dL (60-115)
[2021-10-03] MEDS: Fluticasone/Vilanterol 100/25 BLST.W.DEV 1 PUFF INHALE (07:55)
[2021-10-03] MEDS: Aspirin Enteric Coated 81 MG TABLET.DR PO (08:50)
[2021-10-03] MEDS: Finasteride 5 MG TABLET PO (08:50)
[2021-10-03] MEDS: acetaZOLAMIDE sodium 500 MG VIAL IVPUSH ×2 (10:00→17:25)
[2021-10-03] MEDS: Phenylephrine HCL 100 MG in 0.9 % Sodium Chloride 250 ML 10.31 MG IVCONT (10:03)
--- NOTE | 2021-10-03 11:18 | PM.CCPN ---
Subjective Subjective Date of Service: 10/03/21 Interval History: Mr. Matias was admitted to ICU Sep 28 for [id number] hypercapnic resp failure requiring BiPAP. The patient is a 66-year-old male, former smoker, quit 15 years ago, with underlying history of morbid obesity, possible COPD, definite OHS, supplemental oxygen dependent with CO2 retention, and diabetes mellitus.? He?s supposed to be on NIV at home, prescribed by Dr. Choi at [facility], but they haven?t been able to get his machine to work for him. His [facility] records list a history of congestive heart failure, but I have been unable to find evidence of that, other than the fact that his echo on September 27 shows some diastolic dysfunction.? Note that his both BNP levels in the [facility] records, both last year and this year, were normal. The patient lives at home with his .? Five adult children live up stairs.? According to the , the patient ambulates with a walker, but doesn?t get around much.? His mental status is usually fully normal.? He needs a little bit of help getting dressed, with pulling his socks or his pants on.? In regards to toileting, the patient uses a urinal or a commode.? The patient bathes with sponge baths.? In regards to mobility, it seems to me from what the says that he often needs a bit of a hand getting out of bed or getting out of a chair.? From what the nurses tell me and from my lengthy conversation with the patient's , I suspect that she may be understating, if not underestimating, his disability. HISTORY OF PRESENT ILLNESS: ?The patient was admitted on 09/25/2021 with alteration of mental status secondary to hypoglycemia.? Also noted to be in congestive heart failure with significant compensated respiratory acidosis. ?ABG on admission (on unstated FiO2) showed 7.41/91/75/+27.? The patient was admitted to medicine, diuresed, and given Diamox. On Sep 27, echo showed: - Mild LVH; normal LV size and systolic function, w EF 60-65%, no RWMAs, w abnormal diastolic function. - Normal RV cavity size and systolic function.? RVSP 22mm - Mod dilated LA. - Normal AV; no MR or MS; normal TV - Dilated IVC with > 50% insp collapse. The patient required transfer to the ICU early on Sep 28 bec of confusion, shortness of breath, and severe hypercarbia, requiring BiPAP. In the ICU, he was continued on diuresis, Diamox, and BiPAP.? He was able to come off BiPAP onto 4-5 L NC oxygen for periods during the day.? By this morning, he was negative 10 liters.? His BP dropped into the 80?s and even 70?s this morning, so the Bumex drip was shut off. I echo?d him this morning bec of hypotension.? Findings: - Normal LV size and fxn. - RV may be top normal - Tricuspid valve showed 1-2+ TR by color vargas, with CWD measuring 3.0 m/sec - IVC was dilated at 2.3 cm, with about 40% insp collapse.? Estimated CVP 12mm.? Estimated RVSP 48mm. On my exam this morning, the patient was fully awake but at least mildly if not moderately disoriented.? Heart rate 80s, sinus rhythm.? Blood pressure 129/53 on Eliceo-Synephrine.? Breathing easy with sat 97% on 6L NC.? Venous blood gas this morning showed 7.42/71/+19.? Temp 100.6.? PER about 3mm.? No JVD at 30?.? Chest was clear to auscultation, with normal expiratory phase.? Heart rate rhythm regular, with normal-sounding S1 and S2, with no murmur or gallops.? The abdomen is obese, and benign.? He has 1+ pretibial edema; I was unable to detect any central edema or anasarca. LABORATORY DATA: Below.? Notably,? white count is 8.0, hemoglobin is steady, platelet count is low and steady, sodium is up to 149, BUN/creatinine relatively 31/1.1, glucose 135, lactic acid 0.8. MICROBIOLOGY:? BC?s drawn today bec of hypotension, low grade fever.? U/A sent today showed 5-9 wbc's with trace urine bacteria and 1+ leukocyte esterase. IMAGING:? Chest x-ray and chest CT from September 25 both show a right pleural effusion.? The chest CT was read as showing atelectasis/consolidation adjacent to the right pleural effusion. IMPRESSION: 1. Former smoker.? He may have some COPD on that basis, but none of his films or CT scans prove it. 2. Echo is c/w some diastolic dysfxn.? My echo today, along with the right pleural effusion, and the fact that the patient became hypotensive with diuresis, all are suggestive of right heart failure.? Still, the BNP from September 28 was negative.? Regardless, he?s been diuresed enough:? He?s negative 10 liters, he has no JVD, little edema, and he?s become hypotensive.? Discussed with Dr. Hendrix from renal.? We?ll hold further diuresis. 3. OHS with CO2 retention.? He?s supposed to be on NIV at home.? For now, continue with BiPAP at night and prn during the day. 4. AMS/metabolic encephalopathy.? 2? above. 5. PHYLICIA.? I wonder if he has cardiorenal syndrome (with the right heart failure). 6. Diabetes mellitus.? On insulin SS. 7. Hypernatremia.? We?ll put him on D5W. 8. Fever & hypotension.? Clinically he does not appear septic, and lactate is negative. ?I do not suspect sepsis. ?Nonetheless, cultures were drawn, and we?ll try to get sputum.? No indication for abx at this time.? And definitely no indication for fluids. (Had a long d/w the patient?s in our office.? See above.) Critical care time (including extended discussion with Dr. Blancas, and review and summary of hospital course):? 110+ min. Critical Care Time (minutes): 110 Physical Exam Vital Signs: Vital Signs: Last Vital Signs Temp 100.6 F H 10/03/21 11:00 Pulse 82 10/03/21 11:00 Resp 13 10/03/21 11:00 BP 129/53 L 10/03/21 11:00 Pulse Ox 97 10/03/21 11:00 Oxygen Flow Rate 3 09/25/21 10:28 Body Mass Index 50.4 Objective Data Labs CBC & Chem 7: 10/03/21 05:20 10/03/21 05:20 Labs: Laboratory Results - last 24 hr 10/02/21 10/02/21 10/02/21 11:58 16:07 18:12 WBC RBC Hgb Hct MCV MCH MCHC RDW Plt Count MPV Immature Gran % (Auto) Neut % (Auto) Lymph % (Auto) [place] % (Auto) Eos % (Auto) Baso % (Auto) Lymph # (Auto) [place] # (Auto) Eos # (Auto) Baso # (Auto) Abs Immat Gran (auto) Absolute Neuts (auto) Absolute Nucleated RBC Nucleated RBC % (auto) VBG pH VBG pCO2 VBG pO2 VBG HCO3 VBG O2 Saturation VBG Base Excess Sodium 146 H Potassium 3.6 Chloride 99 Carbon Dioxide 38 H Anion Gap 13 BUN 27 H Creatinine 1.21 Estim Creat Clear Calc 74.2 Estimated GFR 60 POC Glucose 141 H 144 H Random Glucose 227 H D Calcium 8.5 Phosphorus Magnesium Albumin 10/02/21 10/03/21 10/03/21 20:39 05:20 05:20 WBC 8.0 RBC 3.54 L Hgb 9.6 L Hct 32.8 L MCV 92.7 MCH 27.1 MCHC 29.3 L RDW 13.1 Plt Count 113 L MPV 11.3 Immature Gran % (Auto) 0.4 Neut % (Auto) 72.7 Lymph % (Auto) 11.3 L [place] % (Auto) 9.3 Eos % (Auto) 6.0 H Baso % (Auto) 0.3 Lymph # (Auto) 0.9 L [place] # (Auto) 0.7 Eos # (Auto) 0.5 H Baso # (Auto) 0.0 Abs Immat Gran (auto) 0.03 Absolute Neuts (auto) 5.8 Absolute Nucleated RBC 0.000 Nucleated RBC % (auto) 0.0 VBG pH VBG pCO2 VBG pO2 VBG HCO3 VBG O2 Saturation VBG Base Excess Sodium 149 H Potassium 3.4 Chloride 102 Carbon Dioxide 37 H Anion Gap 13 BUN 31 H Creatinine 1.14 Estim Creat Clear Calc 80.0 Estimated GFR > 60 POC Glucose 210 H Random Glucose 135 H D Calcium 8.6 Phosphorus 3.4 Magnesium 2.3 Albumin 3.3 L 10/03/21 10/03/21 05:23 07:12 WBC RBC Hgb Hct MCV MCH MCHC RDW Plt Count MPV Immature Gran % (Auto) Neut % (Auto) Lymph % (Auto) [place] % (Auto) Eos % (Auto) Baso % (Auto) Lymph # (Auto) [place] # (Auto) Eos # (Auto) Baso # (Auto) Abs Immat Gran (auto) Absolute Neuts (auto) Absolute Nucleated RBC Nucleated RBC % (auto) VBG pH 7.42 VBG pCO2 71 VBG pO2 61 VBG HCO3 47 H VBG O2 Saturation 90.0 VBG Base Excess 19.6 Sodium Potassium Chloride Carbon Dioxide Anion Gap BUN Creatinine Estim Creat Clear Calc Estimated GFR POC Glucose 128 H Random Glucose Calcium Phosphorus Magnesium Albumin Quality Stroke Does the patient have a stroke diagnosis?: No VTE Prior VTE?: No VTE Risk Level:: Medical - moderate - high VTE Device Contraindication: Treatment Not Indicated VTE Drug Contraindication: N/A - Med Ordered Critical Care Time Critical Care Time (minutes): 120
[2021-10-03 11:20] LABS: Appearance Urine HAZY; Color Urine YELLOW; Glucose Urine UA NEG (NEG); Leukocyte Esterase Urine 1+ (NEG); Nitrite Urine NEG (NEG); PH 7.5 (5.0-8.0); Specific Gravity - Urine <= 1.005 (1.005-1.025); UACC Culture Trigger YES; Urine Blood 1+ (NEG); Urine Ketones NEG (NEG); Urine Protein 1+ MG/DL (NEG-TRACE)
[2021-10-03 11:20] LABS: Lactic Acid 0.8 mmol/L (0.5-2.0)
[2021-10-03 11:20] LABS: Glucose, Whole Blood 189 mg/dL (60-115)
[2021-10-03] MEDS: Midodrine HCl 10 MG TABLET PO ×2 (11:26→20:41)
[2021-10-03] MEDS: Insulin Lispro 100 UNIT/ML 3 ML VIAL SUBCUT (11:26)
[2021-10-03 11:50] LABS: Bacteria Urine TRACE /LPF; Squamous Epithelial Cell Urine TRACE /LPF
--- NOTE | 2021-10-03 12:18 | MHC.CM.PN ---
Met with pt and spouse to discuss PT eval recommendation of STR: Although resistant, both are in agreement if the STR center is local. Discussed payor contracted sites and bed availability: referrals made and will await acceptance. Pt has been COVID vaccinated.
[2021-10-03 15:35] LABS: ABG Base Excess 16.6 mmol/L; ABG HCO3 45 mmol/L (22-26); ABG pCO2 73 mmHg (32-45); ABG pCO2 TC 76 mmHg (32-45); ABG pH 7.39 (7.35-7.45); ABG pH TC 7.37 (7.35-7.45); ABG pO2 64 mmHg (83-108); ABG pO2 TC 69 (83-108)
[2021-10-03] MEDS: Enoxaparin Sodium 40 MG/0.4 ML SYRINGE SUBCUT (15:43)
[2021-10-03 17:25] LABS: Glucose, Whole Blood 152 mg/dL (60-115)
--- NOTE | 2021-10-03 19:16 | PC.NURSE ---
AT START OF SHIFT PATIENT ALERT X 4. APPROPRIATE AND ANSWERING ALL QUESTIONS, FOLLOWING COMMANDS. TMAX. 100.8, BP SUPPORTED WITH MARJ GTT (SEE MAR). 02 MAINTAINED WITH BIPAP 14/5 ON 35% OR 6L [place] NC WHILE AWAKE. PATIENT OFF BIPAP FROM [id number]. PT BEDSIDE FOR EVALUATION AND TREATMENT. PT BATHED, SHAMPOOED, INTERDRY, BARRIER CREAM AND LOTION APPLYED. PT TOOK A NAP AFTER AND WOKE UP COMPLETELY ALTERED. RIPPING OFF BIPAP, BP CUFF, ATTEMPTING TO PULL OUT IVS. UNABLE TO REDIRECT. ONLY KNEW HIMSELF. NOTIFIED AND ABGS DRAWM ORDERED. BIPAP ADJUSTED TO 16/5 ON 40%. WITH FREQUENT RE-ORIENTATION PT EVENLY WENT BACK TO SLEEP. BEDSIDE. PT WOKE UP AGAIN AT 1830 AND WAS COMPLETELY ALERT, KNEW HE WAS AT THE HOSPITAL, THAT IT WAS SEPTEMBER 2021, AND WHO HIS WAS AT THE BEDSIDE. NOTIFIED.
[2021-10-03] MEDS: Potassium Chloride/H20 10 MEQ/100 ML PIGGYBACK 100 MEQ IV ×5 (19:22→23:31)
[2021-10-03 20:31] LABS: Glucose, Whole Blood 146 mg/dL (60-115)
[2021-10-03] MEDS: Atorvastatin Calcium 20 MG TABLET PO (20:41)
[2021-10-03] MEDS: Tamsulosin HCL 0.4 MG CAPSULE 0.8 MG PO (20:42)
[2021-10-03 20:57] LABS: ABG Refer to POC result
[2021-10-03] MEDS: Phenylephrine HCL 100 MG in 0.9 % Sodium Chloride 250 ML 15.47 MG IVCONT (21:32)
[2021-10-04] VITALS (42 sets, daily range): BP systolic 92–160; BP diastolic 29–83; PULSE 65–80; RESP 8–27; TEMP 37.4–37.8; O2SAT 86–99; BMI 49.6
[2021-10-04] MEDS: Dextrose 5 % 1,000 ML 60 ML IVCONT ×2 (00:28→17:12)
[2021-10-04] MEDS: 0.9 % Sodium Chloride Flush 3 ML SYRINGE IVFLUSH ×3 (00:28→17:16)
[2021-10-04] MEDS: acetaZOLAMIDE sodium 500 MG VIAL IVPUSH ×3 (01:04→17:16)
[2021-10-04 05:20] LABS: VBG Base Excess 14.2 mmol/L; VBG HCO3 43 mmol/L (22-26); VBG pCO2 83 mmHg; VBG pH 7.32 (7.32-7.43); VBG pO2 62 mmHg
[2021-10-04 06:05] LABS: Anion Gap 13 (12-20); Blood Urea Nitrogen 29 mg/dL (9-16); C Reactive Protein 12.98 mg/dL (< or = 0.50); Calcium 8.9 mg/dL (8.4-10.2); Carbon Dioxide 35 mmol/L (22-29); Chloride 103 mmol/L (96-108); Estimated Glomerular Filt Rate > 60; Glucose Random 176 mg/dL (60-115); Magnesium 2.5 mg/dL (1.6-2.6); Potassium 3.5 mmol/L (3.3-5.1); Sodium 147 mmol/L (135-145)
[2021-10-04 06:12] LABS: Venous Blood Gas Refer to POC result
[2021-10-04 06:19] LABS: Procalcitonin 0.17 ng/mL
[2021-10-04 07:28] LABS: Glucose, Whole Blood 160 mg/dL (60-115)
[2021-10-04] MEDS: Fluticasone/Vilanterol 100/25 BLST.W.DEV 1 PUFF INHALE (07:42)
[2021-10-04] MEDS: Insulin Lispro 100 UNIT/ML 3 ML VIAL SUBCUT ×4 (07:49→22:22)
[2021-10-04] MEDS: Aspirin Enteric Coated 81 MG TABLET.DR PO (08:29)
[2021-10-04] MEDS: Midodrine HCl 10 MG TABLET PO ×3 (08:29→19:13)
[2021-10-04] MEDS: Finasteride 5 MG TABLET PO (08:29)
[2021-10-04] MEDS: Phenylephrine HCL 100 MG in 0.9 % Sodium Chloride 250 ML 30.94 MG IVCONT (09:31)
--- NOTE | 2021-10-04 10:42 | CONS_ITS ---
DATE OF SERVICE: 10/03/2021 REASON FOR CONSULTATION: I was asked to see the patient to assist in evaluation and management of the patient's volume overload state and ongoing diuresis with the development of hypercapnic respiratory failure. HISTORY OF PRESENT ILLNESS: In summary, the patient is a complicated 66-year-old gentleman, who was admitted to the hospital on September 25 with altered mental status, noted to have hyperglycemia with blood sugar in the 40s and hypoxemia. On the , he was evaluated by ICU and transferred to the ICU due to a combination of COPD exacerbation and CHF. Records indicate that he was on Bumex drip and had an excellent diuresis of about 10 L over the past several days. Today, the Bumex drip was stopped. He became hypotensive, now is on phenylephrine infusion and midodrine has been started. He remains on BiPAP. When he comes off the BiPAP, he becomes hypercapnic and altered in his mental status. Information was obtained from electronic medical record and discussion with the seismic plotter and the ICU nurse. PAST MEDICAL HISTORY: Notable for CHF, COPD with chronic respiratory failure (maintained on home O2), diabetes, hypertension, morbid obesity. MEDICATIONS: His medications on admission include aspirin, Lipitor, Proscar, insulin, lisinopril 40 once a day, metformin 1000 mg twice a day, metoprolol, potassium, tamsulosin, and torsemide were all listed. His current medications as mentioned, he was on the Bumex, which has been stopped. He is on phenylephrine. He is on insulin, aspirin, Lipitor, inhalers, Proscar, tamsulosin, Lovenox, acetazolamide 500 q.8, midodrine 10 three times a day was started. ALLERGIES: HE HAS ALLERGIES TO PENICILLIN AND LASIX, LISTED IN THE RECORDS. PHYSICAL EXAMINATION: GENERAL: Morbidly obese patient, on BiPAP. VITAL SIGNS: Blood pressure now 114/46, heart rate in the 70s, temperature 100.2, O2 saturation 91% on the BiPAP. I's and O's for the past 24 hours is listed as negative about 1700 cc. LUNGS: Decreased breath sounds at bases and actually decreased air movement. CARDIAC: Regular rate. ABDOMEN: Obese, soft, nontender. EXTREMITIES: Show 1+ edema with some mild scrotal edema. DIAGNOSTIC DATA: Bedside echo per seismic plotter showed pulmonary artery systolic pressure of 50. LABORATORY DATA: Showed a blood gas today; pH of 7.37, PO2 of 73, pCO2 of 76, calculated bicarb of 45. Back on the when he decompensated, his pCO2 is 113. Sodium 149, potassium 3.4, chloride 102, bicarb 37, BUN 13, creatinine 1.14, blood sugar 135, albumin 3.3. Reviewing his serum bicarb, it is little bit as high as 47 and for the past several days, they have been 37. Hemoglobin 9.6, hematocrit 32.8, white blood cell count 8.0. IMPRESSION: A 66-year-old with severe O2-dependent chronic obstructive pulmonary disease, congestive heart failure with respiratory failure. 1. Respiratory failure. The patient is a complicated patient in terms of his respiratory failure. He is certainly at risk for becoming hypercapnic as was demonstrated earlier. Presently, it appears that he most likely has his respiratory drive center mediated by hypoxia and not by acidemia. Most likely, hypercapnia and acidemia do not stimulate his respiratory center because of his longstanding CO2-retaining chronic obstructive pulmonary disease. He has been aggressively diuresed to try and optimize his respiratory status. He is currently on Diamox to try and drop his bicarb to maintain it in the 30 to 35 range. 2. Low blood pressure. I suspect he may have been over-diuresed and requires higher filling pressures because of his pulmonary hypertension. The loop diuretic has been discontinued and now he is just maintained on Diamox. 3. Hyponatremia. Would replace his free water deficit as the hyponatremia can be a contributing factor to altered mental status. Would give him some hypotonic fluids in the form of D5W. SUGGESTIONS: At this time include continue midodrine. Discontinue the diuretics. Adjust his Diamox to try and get his serum bicarb to a tolerable range. The issue will be trying to find the sweet spot so that he maintain his respiratory drive. We will follow the patient with the team. MD HOSSEIN Hawley/MARCO / [id number]
[2021-10-04 11:22] LABS: Glucose, Whole Blood 211 mg/dL (60-115)
--- NOTE | 2021-10-04 12:16 | PM.CCPN ---
Subjective Subjective Date of Service: 10/04/21 Interval History: Mr. Matias was admitted to ICU Sep 28 for [id number] hypercapnic resp failure requiring BiPAP. The patient is a 66-year-old male, former smoker, quit 15 years ago, with underlying history of morbid obesity, possible COPD, definite OHS, supplemental oxygen dependent with CO2 retention, and diabetes mellitus.? He?s supposed to be on NIV at home, prescribed by Dr. Choi at [facility], but they haven?t been able to get his machine to work for him. His [employer] records list a history of congestive heart failure, but I have been unable to find evidence of that, other than the fact that his echo on September 27 shows some diastolic dysfunction.? Note that BNP levels in the [facility] records, both last year and this year, were normal. The patient lives at home with his .? Five adult children live upstairs.? According to the , the patient ambulates with a walker, but doesn?t get around much.? His mental status is usually fully normal.? He needs a little bit of help getting dressed, with pulling his socks or his pants on.? In regards to toileting, the patient uses a urinal or a commode.? The patient bathes with sponge baths.? In regards to mobility, it seems to me from what his says, that he often needs a bit of a hand getting out of bed or getting out of a chair.? But from what the nurses tell me and from my lengthy conversation with the patient's , I suspect that she may be understating, or underestimating his disability. HISTORY OF PRESENT ILLNESS:? The patient was admitted on 09/25/2021 with altered mental status secondary to hypoglycemia.? He was also noted to be in congestive heart failure with significant compensated respiratory acidosis.? ABG on admission (on unstated FiO2) showed 7.41/91/75/+27.? The patient was admitted to medicine, diuresed, and given Diamox. On Sep 27, echo showed: ?- Mild LVH; normal LV size and systolic function, w EF 60-65%, no RWMAs, w abnormal diastolic function. ?- Normal RV cavity size and systolic function.? RVSP 22mm ?- Mod dilated LA. ?- Normal AV; no MR or MS; normal TV ?- Dilated IVC with > 50% insp collapse. The patient required transfer to the ICU early on Sep 28 [facility] of confusion, shortness of breath, and severe hypercarbia, requiring BiPAP.? In the ICU, he was continued on diuresis, Diamox, and BiPAP.? He was able to come off BiPAP onto 4-5 L NC oxygen for periods during the day.? By yesterday 10/04, he was negative 10 liters.? His BP dropped into the 80?s and even 70?s yesterday morning, so the Bumex drip was shut off.? Echo bec of hypotension showed: ?- Normal LV size and fxn. ?- RV maybe top normal ?- Tricuspid valve showed 1-2+ TR by color vargas, with CWD measuring 3.0 m/sec ?- IVC was dilated at 2.3 cm, with about 40% insp collapse.? Estimated CVP 12mm.? Estimated RVSP 48mm. Yesterday the patient was at least mildly disoriented.? Was breathing easy on BiPAP 14/5/35%, with sats in the low 90s.? PaCO2 in the afternoon was 73.? He had 1+ pretibial edema.?? He was started on Eliceo-Synephrine and midodrine, but was missed some doses of the midodrine .? I discussed his situation with Dr. Hendrix from renal.? He felt that the patient was probably over diuresed, and that was responsible for his lowish blood pressure. Over the last 24 hrs, the patient is net even on fluids, overall net negative 11 Liters.? On my exam this morning, the patient was fully awake and maybe slightly better oriented than yesterday.? Breathing easy with no accessory muscles.? Respiratory rate high teens-20 on 6 L nasal cannula, with sat 100%.? On 2 L nasal cannula, sat was 92%.? Venous blood gas this morning showed 732/83/+14 (BE down from +20 on the Diamox).? Heart rate 74, sinus rhythm, blood pressure 136/54.? The patient is afebrile.? PER about 3-4mm.? No JVD at 30?.? Chest is clear to auscultation, with normal expiratory phase.? Heart rate and rhythm are regular, with normal-sounding S1 and S2, with no murmur or gallops.? The abdomen is obese, and benign.? He has 1+ pretibial edema and 1+ central edema.? No obvious anasarca. LABORATORY DATA: Below.? Notably, sodium is down to 147 on the D5W, BUN/creatinine down slightly, glucose 176. MICROBIOLOGY:? Urine cult yest contaminated.? We?ll resend.? BC?s drawn yesterday (bec of hypotension, low grade fever) are negative so far. IMAGING:? Chest x-ray and chest CT from September 25 both show a right pleural effusion.? The chest CT was read as showing atelectasis/consolidation adjacent to the right pleural effusion.? CXR from yesterday is improved, with better aeration of the RLL. IMPRESSION: 1. Former smoker.? He may have some COPD on that basis, but none of his CXRs or CT scans prove it. 2. Echo is c/w some diastolic dysfxn.? My echo yesterday, along with the right pleural effusion, and the fact that the patient became hypotensive with diuresis, all are suggestive of right heart failure.? And there?s no question that clinically, he was volume overloaded.? The puzzling factor is that the BNP from September 28 was negative, albeit that was after he?d been diuresed some. ? Regardless, he?s been diuresed enough:? He?s negative 11 liters, he has no JVD, little edema, and he?s become hypotensive.? Discussed with Dr. Hendrix from renal.? We?ll hold further diuresis. 3. OHS with CO2 retention.? Despite the BiPAP and high dose Diamox, we haven?t been able to get his pCO2 down.? Continue the Diamox and BiPAP at night and prn during the day.? Needs a PICC line for IV access and blood & blood gas draws 4. AMS/metabolic encephalopathy.? 2? above. 5. PHYLICIA.? May have cardiorenal syndrome (with the right heart failure). 6. Diabetes mellitus.? On insulin SS. 7. Hypernatremia.? On D5W and oral free water. 8. ID:? Low grade temps & hypotension.? Clinically he does not appear septic, and lactate is negative.? I do not suspect sepsis or pneumonia.? Nonetheless, cultures were drawn.? I?m using neosynephrine to avoid giving him fluids. 9. Disability:? PT saw the patient yesterday, and the presence of the patient's .? The patient had little ability to move about on his own, and was unable to stand.? The was unable to physically maneuver the patient, and most importantly we prove that to her.? She is now willing to send him to rehab facility.? He will need a place that can do BiPAP 24 hours, however. Discussed with radiology at length, they will place a PICC line tomorrow.? Discussed again with Dr. Blancas and Dr. Hendrix. Critical care time: ?70+ min. Critical Care Time (minutes): 70 Physical Exam Vital Signs: Vital Signs: Last Vital Signs Temp 99.9 F 10/04/21 12:00 Pulse 74 10/04/21 12:00 Resp 8 L 10/04/21 12:00 BP 95/47 L 10/04/21 12:00 Pulse Ox 89 L 10/04/21 12:00 Oxygen Flow Rate 3 09/25/21 10:28 Body Mass Index 49.6 Objective Data Labs CBC & Chem 7: 10/03/21 05:20 10/04/21 05:10 Labs: Laboratory Results - last 24 hr 10/03/21 10/03/21 10/03/21 15:28 17:22 20:28 O2 Saturation 91.0 ABG pH at Pt Temp 7.39 ABG pH (Temp Correct) 7.37 ABG pCO2 at Pt Temp 73 H* ABG pCO2 (Temp Corrct 76 H* ABG pO2 at Pt Temp 64 L ABG pO2 (Temp Correct 69 L ABG HCO3 45 H ABG Base Excess (Actual) 16.6 VBG pH VBG pCO2 VBG pO2 VBG HCO3 VBG O2 Saturation VBG Base Excess Sodium Potassium Chloride Carbon Dioxide Anion Gap BUN Creatinine Estim Creat Clear Calc Estimated GFR POC Glucose 152 H 146 H Random Glucose Calcium Magnesium C-Reactive Protein Procalcitonin 10/04/21 10/04/21 10/04/21 05:10 05:10 05:14 O2 Saturation ABG pH at Pt Temp ABG pH (Temp Correct) ABG pCO2 at Pt Temp ABG pCO2 (Temp Corrct ABG pO2 at Pt Temp ABG pO2 (Temp Correct ABG HCO3 ABG Base Excess (Actual) VBG pH 7.32 VBG pCO2 83 VBG pO2 62 VBG HCO3 43 H VBG O2 Saturation 87.0 VBG Base Excess 14.2 Sodium 147 H Potassium 3.5 Chloride 103 Carbon Dioxide 35 H Anion Gap 13 BUN 29 H Creatinine 1.04 Estim Creat Clear Calc 87.0 Estimated GFR > 60 POC Glucose Random Glucose 176 H Calcium 8.9 Magnesium 2.5 C-Reactive Protein 12.98 H Procalcitonin 0.17 10/04/21 10/04/21 07:25 11:16 O2 Saturation ABG pH at Pt Temp ABG pH (Temp Correct) ABG pCO2 at Pt Temp ABG pCO2 (Temp Corrct ABG pO2 at Pt Temp ABG pO2 (Temp Correct ABG HCO3 ABG Base Excess (Actual) VBG pH VBG pCO2 VBG pO2 VBG HCO3 VBG O2 Saturation VBG Base Excess Sodium Potassium Chloride Carbon Dioxide Anion Gap BUN Creatinine Estim Creat Clear Calc Estimated GFR POC Glucose 160 H 211 H Random Glucose Calcium Magnesium C-Reactive Protein Procalcitonin Microbiology Microbiology Results: Microbiology 10/03/21 Unknown Urine Catheterized - Blanco Catheter Urine Culture - Final 10/03/21 20:23 Sputum - Expectorated Gram Stain - Final 10/03/21 20:23 Sputum - Expectorated Sputum Culture - Final 10/03/21 07:33 Sputum - Expectorated Gram Stain - Final 10/03/21 07:33 Sputum - Expectorated Sputum Culture - Final Quality Stroke Does the patient have a stroke diagnosis?: No VTE Prior VTE?: No VTE Risk Level:: Medical - moderate - high VTE Device Contraindication: Treatment Not Indicated VTE Drug Contraindication: N/A - Med Ordered Critical Care Time Critical Care Time (minutes): 60
[2021-10-04] MEDS: Acetaminophen 325 MG TABLET 650 MG PO (12:47)
[2021-10-04] MEDS: Potassium Chloride Packet 20 MEQ PACKET 40 MEQ PO ×2 (14:07→17:17)
[2021-10-04] MEDS: Azithromycin 500 MG TABLET PO (14:07)
[2021-10-04 14:33] LABS: Appearance Urine CLOUDY; Color Urine YELLOW; Glucose Urine UA NEG (NEG); Leukocyte Esterase Urine 2+ (NEG); Nitrite Urine NEG (NEG); PH 7.5 (5.0-8.0); UACC Culture Trigger YES; Urine Blood TRACE (NEG); Urine Ketones NEG (NEG); Urine Protein 2+ MG/DL (NEG-TRACE)
[2021-10-04 14:45] LABS: Bacteria Urine 1+ /LPF; WBC Urine 50-75 /HPF (0-4)
[2021-10-04 16:24] LABS: Glucose, Whole Blood 190 mg/dL (60-115)
[2021-10-04] MEDS: Enoxaparin Sodium 40 MG/0.4 ML SYRINGE SUBCUT (17:13)
[2021-10-04] MEDS: Tamsulosin HCL 0.4 MG CAPSULE 0.8 MG PO (19:13)
[2021-10-04] MEDS: Atorvastatin Calcium 20 MG TABLET PO (19:13)
[2021-10-04 21:01] LABS: Glucose, Whole Blood 279 mg/dL (60-115)
[2021-10-04] MEDS: Phenylephrine HCL 100 MG in 0.9 % Sodium Chloride 250 ML 12.37 MG IVCONT (23:21)
[2021-10-05] VITALS (24 sets, daily range): BP systolic 100–162; BP diastolic 34–73; PULSE 70–106; RESP 11–37; TEMP 36.4–37.4; O2SAT 88–96; BMI 50.1
[2021-10-05] MEDS: acetaZOLAMIDE sodium 500 MG VIAL IVPUSH (04:19)
[2021-10-05 05:23] LABS: VBG Base Excess 7.7 mmol/L; VBG HCO3 35 mmol/L (22-26); VBG pCO2 63 mmHg; VBG pH 7.34 (7.32-7.43); VBG pO2 43 mmHg; Venous Blood Gas Refer to POC result
[2021-10-05 05:27] LABS: Hematocrit 33.6 % (42.0-52.0); Hemoglobin 9.9 g/dl (14.0-18.0); Mean Corpuscular HGB Conc 29.5 g/dl (31.0-36.0); Mean Corpuscular Hemoglobin 26.7 pg (27.0-33.0); Mean Corpuscular Volume 90.6 fL (80.0-98.0); Mean Platelet Volume 10.8 fL (9.4-12.4); Platelet Count 146 X10*3/uL (160-400); Red Blood Count 3.71 X10*6/uL (4.60-5.80); Red Cell Distribution Width 13.1 % (11.0-16.0); White Blood Count 7.9 X10*3/uL (4.8-10.8)
[2021-10-05 05:50] LABS: Anion Gap 11 (12-20); Calcium 8.4 mg/dL (8.4-10.2); Carbon Dioxide 31 mmol/L (22-29); Chloride 104 mmol/L (96-108); Creatinine Clr Calc Pharmacy 96.2; Estimated Glomerular Filt Rate > 60; Glucose Random 193 mg/dL (60-115); Magnesium 2.3 mg/dL (1.6-2.6); Phosphorus 3.1 mg/dL (2.7-4.5); Potassium 3.4 mmol/L (3.3-5.1); Sodium 143 mmol/L (135-145)
--- NOTE | 2021-10-05 07:16 | MHC.PIE ---
P: device acquired pressure ulcer noted on nose. Foam dressing was on top - ulcer caused from bipap. I: Dressing removed - left out to air at this time. Bipap breaks given - transferred to 2 liter nasal cannula - does not tolerate for long. RT called - obtained another mask that does not put pressure on top of nose. Pic taken & wound measured - put on chart. Wound consult put in. E: 1x2 cm open wound. red, granulated wound bed w/ yellow. Left out to air at this time.
[2021-10-05 07:37] LABS: Glucose, Whole Blood 181 mg/dL (60-115)
[2021-10-05] MEDS: 0.9 % Sodium Chloride Flush 3 ML SYRINGE IVFLUSH ×3 (09:36→23:48)
[2021-10-05] MEDS: Insulin Lispro 100 UNIT/ML 3 ML VIAL SUBCUT ×4 (09:36→22:19)
[2021-10-05] MEDS: Aspirin Enteric Coated 81 MG TABLET.DR PO (09:37)
[2021-10-05] MEDS: Midodrine HCl 10 MG TABLET PO ×2 (09:37→22:18)
[2021-10-05] MEDS: metFORMIN HCl 1,000 MG TABLET 1000 MG PO ×2 (09:37→22:18)
[2021-10-05] MEDS: acetaZOLAMIDE 250 MG TABLET PO ×2 (09:37→22:18)
[2021-10-05] MEDS: Finasteride 5 MG TABLET PO (09:37)
[2021-10-05 09:39] LABS: Blood Urea Nitrogen 24 mg/dL (9-16)
[2021-10-05] MEDS: Fluticasone/Vilanterol 100/25 BLST.W.DEV 1 PUFF INHALE (09:45)
--- NOTE | 2021-10-05 10:03 | P.PNCC_ITS ---
Subjective Subjective Date of Service: 10/05/21 Interval History: Mr. Matias was admitted to ICU Sep 28 for [id number] hypercapnic resp failure requiring BiPAP. The patient is a 66-year-old male, former smoker, quit 15 years ago, with underlying history of morbid obesity, possible COPD, definite OHS, supplemental oxygen dependent with CO2 retention, and diabetes mellitus.? He?s supposed to be on NIV at home, prescribed by Dr. Choi at [facility], but they haven?t been able to get his machine to work for him. His [employer] records list a history of congestive heart failure, but I have been unable to find evidence of that, other than the fact that his echo on September 27 shows some diastolic dysfunction.? Note that BNP levels in the [facility] records, both last year and this year, were normal. The patient lives at home with his .? Five adult children live upstairs.? According to the , the patient ambulates with a walker, but doesn?t get around much.? His mental status is usually fully normal.? He needs a little bit of help getting dressed, with pulling his socks or his pants on.? In regards to toileting, the patient uses a urinal or a commode.? The patient bathes with sponge baths.? In regards to mobility, it seems to me from what his says, that he often needs a bit of a hand getting out of bed or getting out of a chair.? But from what the nurses tell me and from my lengthy conversation with the patient's , I suspect that she may be understating, or underestimating his disability. HISTORY OF PRESENT ILLNESS:? The patient was admitted on 09/25/2021 with altered mental status secondary to hypoglycemia.? He was also noted to be in congestive heart failure with significant compensated respiratory acidosis.? ABG on admission (on unstated FiO2) showed 7.41/91/75/+27.? The patient was admitted to medicine, diuresed, and given Diamox. On Sep 27, echo showed: ?- Mild LVH; normal LV size and systolic function, w EF 60-65%, no RWMAs, w abnormal diastolic function. ?- Normal RV cavity size and systolic function.? RVSP 22mm ?- Mod dilated LA. ?- Normal AV; no MR or MS; normal TV ?- Dilated IVC with > 50% insp collapse. The patient required transfer to the ICU early on Sep 28 [facility] of confusion, shortness of breath, and severe hypercarbia, requiring BiPAP.? In the ICU, he was continued on diuresis, Diamox, and BiPAP.? He was able to come off BiPAP onto 4-5 L NC oxygen for periods during the day.? By 10/03, he was negative 10 liters.? His BP on that day though dropped into the 70s-80s, so the diuretics were stopped.? Echo ([facility] of hypotension) showed: ?- Normal LV size and fxn. ?- RV maybe top normal ?- Tricuspid valve showed 1-2+ TR by color vargas, with CWD measuring 3.0 m/sec ?- IVC was dilated at 2.3 cm, with about 40% insp collapse.? Estimated CVP 12mm.? Estimated RVSP 48mm. The patient was started on neosynephrine and midodrine in order to avoid giving him fluids back.? He was pancultured just to be sure.? All cultures came back negative, altho sputum suggests bronchitis, so I started him yesterday on a 5 day course of oral Zithromax. Today he looks the best and brightest than I?ve seen him and his FiO2 is down to 2L, with Sat up to 95%.? He looks fully oriented today for the first time.? HR 84, BP 120/48 off neosynephrine, .? RR is about 18-20 on 2L NC, Sat 91-95%.? VBG this morning shows 7.34/63/+7 on the high dose Diamox.? He?s afebrile.? Over the last 24 hrs, the patient is net positive 650cc; overall net negative >10 Liters.? PER about 3-4mm.? No JVD at 40?.? Chest is clear, normal expiratory phase.? The abdomen is obese, and benign.? He has 1+ pretibial edema and 1+ central edema.? No obvious anasarca. LABORATORY DATA: Below.? Notably, sodium is down to 143 on the D5W, BUN/crea tinine down to 24/0.9. IMAGING:? Chest x-ray and chest CT from September 25 both showed a right pleural effusion.? The chest CT was read as showing atelectasis/consolidation adjacent to the right pleural effusion.? CXR from 10/03 was improved, with better aeration of the RLL. IMPRESSION: 1. Former smoker.? He may have some COPD on that basis, but none of his CXRs or CT scans prove it. 2. Echo is c/w some diastolic dysfxn.? My echo 10/03, along with the right pleural effusion, and the fact that the patient became hypotensive with diuresis, and then his renal indices have improved since 10/03 when we stopped diuresis, all are suggestive of right heart failure.? And there?s no question that clinically, he was volume overloaded.? The puzzling factor is that the BNP from September 28 was negative, albeit that was after he?d been diuresed some. ? Regardless, we can restart his home dose of diuretic now.? If his renal indices climb or his BP drops, that would be a sign that he?s overdiuresed. 3. OHS with CO2 retention.? His pCO2 is finally down after rigorous nighttime BiPAP and high dose Diamox.? I?ll drop the Diamox to 250 mg po bid.? Continue the Diamox and BiPAP at night and prn during the day.? Please make sure to draw a VBG every time he has morning labs drawn so that we can follow his pCO2. 4. AMS/metabolic encephalopathy.? 2? above. 5. PHYLICIA.? May have cardiorenal syndrome (with the right heart failure). 6. Diabetes mellitus.? I started him back on his metformin this morning.? He was on Lantus at home, but he may not need that if he?s on a controlled institutional diet.? Continue insulin SQ SS. 7. Hypernatremia.? Resolved with D5W and oral free water. 8. Metabolic alkalosis.? 2? OHS and diuresis.? Resolving on Diamox. 9. ID:? Low grade temps & hypotension.? Clinically he was never septic, and lactate was negative.? No suspicion of sepsis or pneumonia.? Nonetheless, cultures were drawn.? The hypotension was prob 2? overdiuresis. I put him on a Z-pack for presumed bronchitis.? He?s already better, in terms of mental status and oxygenation, and maybe that?s also helped get his pCO2 down. 10. Disability:? The patient was seen by PT on 10/03 in the presence of the patient's .? The patient had little ability to move about on his own, and was unable to stand.? The was unable to physically maneuver the patient, and most importantly we proved that to her.? She is now willing to send him to a rehab facility.? He will need a place that can do BiPAP 24 hours as needed. We need to get him OOB into a chair, but it takes 4-5 people to do that bec he?s so immobile. Stable for transfer to [facility].? I will sign out to the hospitalists.? Time:? [id number] Critical Care Time (minutes): 0 Physical Exam Vital Signs: Vital Signs: Last Vital Signs Temp 98.1 F 10/05/21 09:00 Pulse 84 10/05/21 09:37 Resp 15 10/05/21 09:00 BP 155/73 H 10/05/21 09:37 Pulse Ox 92 10/05/21 08:00 Oxygen Flow Rate 30 10/04/21 22:40 Body Mass Index 50.1 Objective Data Labs CBC & Chem 7: 10/05/21 05:15 10/05/21 05:15 Labs: Laboratory Results - last 24 hr 10/04/21 10/04/21 10/04/21 11:16 14:05 16:20 WBC RBC Hgb Hct MCV MCH MCHC RDW Plt Count MPV Absolute Nucleated RBC Nucleated RBC % (auto) VBG pH VBG pCO2 VBG pO2 VBG HCO3 VBG O2 Saturation VBG Base Excess Sodium Potassium Chloride Carbon Dioxide Anion Gap BUN Creatinine Estim Creat Clear Calc Estimated GFR POC Glucose 211 H 190 H Random Glucose Calcium Phosphorus Magnesium Urine Color YELLOW Urine Appearance CLOUDY Urine pH 7.5 Ur Specific [place] 1.010 Urine Protein 2+ H Urine Glucose (UA) NEG Urine Ketones NEG Urine Blood TRACE Urine Nitrite NEG Ur Leukocyte Esterase 2+ H Urine RBC 5-9 H Urine WBC 50-75 H Ur Squamous Epith Cells NONE Urine Bacteria 1+ 10/04/21 10/05/21 10/05/21 20:58 05:15 05:15 WBC 7.9 RBC 3.71 L Hgb 9.9 L Hct 33.6 L MCV 90.6 MCH 26.7 L MCHC 29.5 L RDW 13.1 Plt Count 146 L D MPV 10.8 Absolute Nucleated RBC 0.000 Nucleated RBC % (auto) 0.0 VBG pH VBG pCO2 VBG pO2 VBG HCO3 VBG O2 Saturation VBG Base Excess Sodium 143 Potassium 3.4 Chloride 104 Carbon Dioxide 31 H Anion Gap 11 L BUN 24 H Creatinine 0.94 Estim Creat Clear Calc 96.2 Estimated GFR > 60 POC Glucose 279 H Random Glucose 193 H Calcium 8.4 Phosphorus 3.1 Magnesium 2.3 Urine Color Urine Appearance Urine pH Ur Specific [place] Urine Protein Urine Glucose (UA) Urine Ketones Urine Blood Urine Nitrite Ur Leukocyte Esterase Urine RBC Urine WBC Ur Squamous Epith Cells Urine Bacteria 10/05/21 10/05/21 05:16 07:31 WBC RBC Hgb Hct MCV MCH MCHC RDW Plt Count MPV Absolute Nucleated RBC Nucleated RBC % (auto) VBG pH 7.34 VBG pCO2 63 VBG pO2 43 VBG HCO3 35 H VBG O2 Saturation 69.0 VBG Base Excess 7.7 Sodium Potassium Chloride Carbon Dioxide Anion Gap BUN Creatinine Estim Creat Clear Calc Estimated GFR POC Glucose 181 H Random Glucose Calcium Phosphorus Magnesium Urine Color Urine Appearance Urine pH Ur Specific [place] Urine Protein Urine Glucose (UA) Urine Ketones Urine Blood Urine Nitrite Ur Leukocyte Esterase Urine RBC Urine WBC Ur Squamous Epith Cells Urine Bacteria Microbiology Microbiology Results: Microbiology 10/03/21 10:55 Blood - Venous Blood Culture - Preliminary No growth after 24 hours. 10/03/21 10:55 Blood - Venous Blood Culture - Preliminary No growth after 24 hours. 10/04/21 09:30 Sputum - Expectorated Gram Stain - Final 10/03/21 Unknown Urine Catheterized - Blanco Catheter Urine Culture - Final 10/03/21 20:23 Sputum - Expectorated Gram Stain - Final 10/03/21 20:23 Sputum - Expectorated Sputum Culture - Final 10/03/21 07:33 Sputum - Expectorated Gram Stain - Final 10/03/21 07:33 Sputum - Expectorated Sputum Culture - Final Quality Stroke Does the patient have a stroke diagnosis?: No VTE Prior VTE?: No VTE Risk Level:: Medical - moderate - high VTE Device Contraindication: Treatment Not Indicated VTE Drug Contraindication: N/A - Med Ordered
[2021-10-05] MEDS: Torsemide 20 MG TABLET 60 MG PO ×2 (10:12→22:18)
[2021-10-05] MEDS: Azithromycin 250 MG TABLET PO (10:12)
--- NOTE | 2021-10-05 10:12 | MHC.CM.PN ---
Pt has been tentatively accepted to several SNF's for STR: feels pt would receive optimal care at a facility with a respiratory therapist on staff: family would like pt to be as close to [place] as possible to facilitate visitation. Clinical updates remitted to following sites: feels pt will be ready to d/c on Sunday. CM to speak with pt and Maryann, pt's about site options.
[2021-10-05 11:45] LABS: Glucose, Whole Blood 240 mg/dL (60-115)
[2021-10-05] MEDS: Potassium Chloride Packet 20 MEQ PACKET 40 MEQ PO (12:58)
--- NOTE | 2021-10-05 13:00 | MHC.CLN ---
Addendum entered by Rashmi Mreida, JOHN 10/05/21 13:08: AGREE WITH PROVIDER'S ASSESSMENT BELOW Original Note: RE: CONSULT PT NOTED TO HAVE PRESSURE WOUND ON NOSE FROM BIPAP MASK CONSULT WAS SENT TO SKIN/WOUND NURSE MONITOR PT'S PO INTAKE IF PO INTAKE DECLINES RECOMMEND GLUCERNA SUPPLEMENT BID TO PROVIDE EXTRA KCALS AND PROTEIN SUPPLEMENT PROVIDES 474 KCALS AND 20 GRAMS PROTEIN
[2021-10-05 16:31] LABS: Glucose, Whole Blood 184 mg/dL (60-115)
[2021-10-05] MEDS: Enoxaparin Sodium 40 MG/0.4 ML SYRINGE SUBCUT (17:07)
[2021-10-05 21:45] LABS: Glucose, Whole Blood 243 mg/dL (60-115)
[2021-10-05] MEDS: Tamsulosin HCL 0.4 MG CAPSULE 0.8 MG PO (22:18)
[2021-10-05] MEDS: Atorvastatin Calcium 20 MG TABLET PO (22:18)
[2021-10-06] VITALS (10 sets, daily range): BP systolic 98–112; BP diastolic 48–67; PULSE 72–95; RESP 18–32; TEMP 36.8–37.4; O2SAT 90–97; BMI 48.8
[2021-10-06 07:03] LABS: VBG Base Excess 7.3 mmol/L; VBG HCO3 33 mmol/L (22-26); VBG pCO2 56 mmHg; VBG pH 7.38 (7.32-7.43); VBG pO2 71 mmHg
[2021-10-06 07:03] LABS: Venous Blood Gas Refer to POC result
[2021-10-06 07:23] LABS: Glucose, Whole Blood 165 mg/dL (60-115)
[2021-10-06 07:47] LABS: Anion Gap 13 (12-20); Blood Urea Nitrogen 33 mg/dL (9-16); Calcium 8.2 mg/dL (8.4-10.2); Carbon Dioxide 28 mmol/L (22-29); Chloride 105 mmol/L (96-108); Creatinine Clr Calc Pharmacy 55.2; Estimated Glomerular Filt Rate 43; Glucose Random 186 mg/dL (60-115); Magnesium 2.1 mg/dL (1.6-2.6); Phosphorus 2.6 mg/dL (2.7-4.5); Potassium 3.9 mmol/L (3.3-5.1); Sodium 142 mmol/L (135-145)
[2021-10-06] MEDS: Torsemide 20 MG TABLET 60 MG PO ×2 (07:56→20:25)
[2021-10-06] MEDS: Aspirin Enteric Coated 81 MG TABLET.DR PO (07:56)
[2021-10-06] MEDS: 0.9 % Sodium Chloride Flush 3 ML SYRINGE IVFLUSH ×2 (07:57→16:45)
[2021-10-06] MEDS: acetaZOLAMIDE 250 MG TABLET PO ×2 (07:57→20:25)
[2021-10-06] MEDS: metFORMIN HCl 1,000 MG TABLET 1000 MG PO ×2 (07:57→20:26)
[2021-10-06] MEDS: Finasteride 5 MG TABLET PO (07:57)
[2021-10-06] MEDS: Insulin Lispro 100 UNIT/ML 3 ML VIAL SUBCUT ×3 (07:58→20:23)
[2021-10-06] MEDS: Midodrine HCl 10 MG TABLET PO (07:59)
--- NOTE | 2021-10-06 10:06 | P.PNIM_ITS ---
Subjective Subjective Date of Service: 10/06/21 Interval History: cc: ams interval history: tired, a bit disoriented, denies sob, pain Cardiovascular Cardiovascular: Reports no additional cardiovascular complaints Respiratory Respiratory: Reports no additional respiratory complaints Physical Exam Vital Signs: Vital Signs: Last Vital Signs Temp 98.8 F 10/06/21 08:00 Pulse 81 10/06/21 08:00 Resp 20 10/06/21 08:00 BP 112/67 10/06/21 08:00 Pulse Ox 90 L 10/06/21 08:00 Oxygen Flow Rate 30 10/04/21 22:40 Body Mass Index 48.8 General: AO X 2, no acute distress Resp: diminished, no accessory muscles used CVS: S1,S2,RRR GI: soft, non tender, non distended Neuro: motor grossly intact, alert Psych: appropriate affect, impaired insight Objective Data Active Medications Acetaminophen (Acetaminophen 325 Mg Tablet) 650 mg PO Q6H PRN PRN Reason: Pain, Mild (Pain Scale 1-3) Last Admin: 10/04/21 12:47 Dose: 650 mg Documented by: ROXY Acetazolamide (Acetazolamide 250 Mg Tablet) 250 mg PO BID [facility] Last Admin: 10/06/21 07:57 Dose: 250 mg Documented by: JUAREZ Aspirin (Aspirin Enteric Coated 81 Mg Tablet.Dr) 81 mg PO DAILY [facility] Last Admin: 10/06/21 07:56 Dose: 81 mg Documented by: JUAREZ Atorvastatin Calcium (Atorvastatin Calcium 20 Mg Tablet) 20 mg PO BEDTIME [facility] Last Admin: 10/05/21 22:18 Dose: 20 mg Documented by: MORRIS Azithromycin (Azithromycin 250 Mg Tablet) 250 mg PO Q24H [facility] Stop: 10/08/21 10:16 Last Admin: 10/05/21 10:12 Dose: 250 mg Documented by: MADELAINE Enoxaparin Sodium (Enoxaparin Sodium 40 Mg/0.4 Ml Syringe) 40 mg SUBCUT Q24H [facility] Last Admin: 10/05/21 17:07 Dose: 40 mg Documented by: VERONICA Finasteride (Finasteride 5 Mg Tablet) 5 mg PO DAILY [facility] Last Admin: 10/06/21 07:57 Dose: 5 mg Documented by: JUAREZ Fluticasone/Vilanterol (Fluticasone/Vilanterol 100/25 Blst.W.Dev) 1 puff INHALE RDAILY [facility] Last Admin: 10/06/21 07:21 Dose: Not Given Documented by: ROSSY Non-Admin Reason: Med Not Available Insulin Human Lispro (Insulin Lispro 100 Unit/Ml 3 Ml Vial) 0 unit SUBCUT QIDACHS [facility]; Protocol Last Admin: 10/06/21 07:58 Dose: 2 unit Documented by: JUAREZ Metformin HCl (Metformin Hcl 1,000 Mg Tablet) 1,000 mg PO BID [facility] Last Admin: 10/06/21 07:57 Dose: 1,000 mg Documented by: JUAREZ Midodrine (Midodrine Hcl 10 Mg Tablet) 10 mg PO TID [facility] Last Admin: 10/06/21 07:59 Dose: 10 mg Documented by: JUAREZ Pharmacy Consult (Consult Rx Perform Med Rec) 1 each MISCELLANE ONCE PRN PRN Reason: Consult order Saliva Substitute (Dry Mouth [place] 60 Ml [place]) 1 spray MUCOUS MEM Q2H PRN PRN Reason: dry mouth Sodium Chloride (0.9 % Sodium Chloride Flush 3 Ml Syringe) 3 ml IVFLUSH QSHIFT [facility] Last Admin: 10/06/21 07:57 Dose: 3 ml Documented by: JUAREZ Tamsulosin HCl (Tamsulosin Hcl 0.4 Mg Capsule) 0.8 mg PO BEDTIME [facility] Last Admin: 10/05/21 22:18 Dose: 0.8 mg Documented by: MORRIS Torsemide (Torsemide 20 Mg Tablet) 60 mg PO BID [facility]; Protocol Last Admin: 10/06/21 07:56 Dose: 60 mg Documented by: JUAREZ Labs CBC & Chem 7: 10/05/21 05:15 10/06/21 06:49 Labs: Laboratory Results - last 24 hr 10/05/21 10/05/21 10/05/21 11:42 16:23 20:33 VBG pH VBG pCO2 VBG pO2 VBG HCO3 VBG O2 Saturation VBG Base Excess Anion Gap Estim Creat Clear Calc Estimated GFR POC Glucose 240 H 184 H 243 H Random Glucose Calcium Phosphorus Magnesium 10/06/21 10/06/21 10/06/21 06:49 06:56 07:17 VBG pH 7.38 VBG pCO2 56 VBG pO2 71 VBG HCO3 33 H VBG O2 Saturation 93.0 VBG Base Excess 7.3 Anion Gap 13 Estim Creat Clear Calc 55.2 Estimated GFR 43 POC Glucose 165 H Random Glucose 186 H Calcium 8.2 L Phosphorus 2.6 L Magnesium 2.1 Microbiology Microbiology Results: Microbiology 10/04/21 09:30 Gram Stain - Final Sputum - Expectorated Sputum Culture - Final 10/03/21 10:55 Blood Culture - Preliminary Blood - Venous No growth after 48 hours. 10/03/21 10:55 Blood Culture - Preliminary Blood - Venous No growth after 48 hours. Assessment and Plan (1) Obesity hypoventilation syndrome: Status: Acute Assessment and Plan: 66M admitted for metabolic encephalopathy due to hypoglycemia, course complicated by acute on chronic hypoxic and hypercapneic respiratory failure requiring rescue bipap in ICU, also complicated by acute on chronic diastolic ch f, needing diuresis, metabolic alkalosis, bronchitis. patient had improved and was downgraded to medical floor 10/05/21 metabolic encephalopathy due to hypoglcyemia and acute on chronic hypoxic and h ypercapneic respiratory failure due to OHS and COPD, as well as acute on chronic diastolic chf encephalopathy resolved, does appear to have some mild hypoactive delerium from hospitalization continue bipap at night - 16/5 30fio2 diamox 250mg bid po, torsemide 60mg bid breo azithromycin had been briefly hypotensive in ICU on 10/03 and started on midodrine, will disconitnue and monitor DM with hypoglycemia lantus discontinued continue metformin insulin sliding scale monitor poc morbid obesity weight loss BPH flomax, proscar dispo - will need SNF with respiratory services dvt prophylaxis - lovenox full code Quality Stroke Does the patient have a stroke diagnosis?: No VTE Prior VTE?: No VTE Risk Level:: Medical - moderate - high VTE Device Contraindication: Treatment Not Indicated VTE Drug Contraindication: N/A - Med Ordered
[2021-10-06] MEDS: Azithromycin 250 MG TABLET PO (10:51)
[2021-10-06 11:21] LABS: Glucose, Whole Blood 150 mg/dL (60-115)
[2021-10-06 16:06] LABS: Glucose, Whole Blood 181 mg/dL (60-115)
[2021-10-06] MEDS: Enoxaparin Sodium 40 MG/0.4 ML SYRINGE SUBCUT (16:44)
[2021-10-06 19:52] LABS: Glucose, Whole Blood 180 mg/dL (60-115)
[2021-10-06] MEDS: Atorvastatin Calcium 20 MG TABLET PO (20:25)
[2021-10-06] MEDS: Tamsulosin HCL 0.4 MG CAPSULE 0.8 MG PO (20:26)
[2021-10-07] VITALS (45 sets, daily range): BP systolic 58–153; BP diastolic 23–70; PULSE 66–173; RESP 16–29; TEMP 30–38.2; O2SAT 63–100; BMI 49.3
[2021-10-07] MEDS: 0.9 % Sodium Chloride Flush 3 ML SYRINGE IVFLUSH ×3 (00:37→15:34)
[2021-10-07 06:59] LABS: Hematocrit 29.9 % (42.0-52.0); Hemoglobin 8.7 g/dl (14.0-18.0); Mean Corpuscular HGB Conc 29.1 g/dl (31.0-36.0); Mean Corpuscular Hemoglobin 26.8 pg (27.0-33.0); Mean Platelet Volume 11.8 fL (9.4-12.4); Platelet Count 151 X10*3/uL (160-400); Red Blood Count 3.25 X10*6/uL (4.60-5.80); Red Cell Distribution Width 13.2 % (11.0-16.0); White Blood Count 9.2 X10*3/uL (4.8-10.8)
[2021-10-07 07:25] LABS: Anion Gap 15 (12-20); Blood Urea Nitrogen 53 mg/dL (9-16); Calcium 8.6 mg/dL (8.4-10.2); Carbon Dioxide 27 mmol/L (22-29); Chloride 104 mmol/L (96-108); Creatinine Clr Calc Pharmacy 32.5; Estimated Glomerular Filt Rate 23; Glucose Fasting 148 mg/dL (60-99); Potassium 4.1 mmol/L (3.3-5.1); Sodium 142 mmol/L (135-145)
[2021-10-07 07:26] LABS: Glucose, Whole Blood 136 mg/dL (60-115)
[2021-10-07] MEDS: Fluticasone/Vilanterol 100/25 BLST.W.DEV 1 PUFF INHALE (07:54)
[2021-10-07] MEDS: Aspirin Enteric Coated 81 MG TABLET.DR PO (08:12)
[2021-10-07] MEDS: Finasteride 5 MG TABLET PO (08:12)
[2021-10-07] MEDS: metFORMIN HCl 1,000 MG TABLET 1000 MG PO (08:12)
[2021-10-07] MEDS: acetaZOLAMIDE 250 MG TABLET PO (08:12)
[2021-10-07] MEDS: Azithromycin 250 MG TABLET PO (08:16)
[2021-10-07] MEDS: 0.9 % Sodium Chloride 1,000 ML 500 ML IVCONT (09:00)
[2021-10-07 09:11] LABS: Glucose, Whole Blood 180 mg/dL (60-115)
--- NOTE | 2021-10-07 09:29 | PC.NURSE ---
at 8:59 carlos eduardo orantes called, patient unresponsive and when last looked at the monitor was bradycardic, code team was able to get a pulse and patient intubated and sent to icu, notified and is coming in now
--- NOTE | 2021-10-07 09:32 | HO.PM.IMPN ---
Subjective Subjective Date of Service: 10/07/21 Interval History: cc: ams interval history: eraly am patient confused, not answering questions Review of Systems Review of Systems: Yes Unobtainable due to mental condition Physical Exam Vital Signs: Vital Signs: Last Vital Signs Temp 98 F 10/07/21 07:22 Pulse 92 10/07/21 07:58 Resp 22 H 10/07/21 07:22 BP 100/50 L 10/07/21 07:22 Pulse Ox 94 10/07/21 07:22 Oxygen Flow Rate 30 10/04/21 22:40 Body Mass Index 49.3 General: confused, lethargic Resp: diminished, no accessory muscles used CVS: S1,S2,RRR GI: soft, non tender, non distended Neuro: motor grossly intact, alert Psych: impaired insight Objective Data Active Medications Acetaminophen (Acetaminophen 325 Mg Tablet) 650 mg PO Q6H PRN PRN Reason: Pain, Mild (Pain Scale 1-3) Last Admin: 10/04/21 12:47 Dose: 650 mg Documented by: ROXY Acetazolamide (Acetazolamide 250 Mg Tablet) 250 mg PO BID [facility] Last Admin: 10/07/21 08:12 Dose: 250 mg Documented by: TOM Aspirin (Aspirin Enteric Coated 81 Mg Tablet.Dr) 81 mg PO DAILY [facility] Last Admin: 10/07/21 08:12 Dose: 81 mg Documented by: TOM Atorvastatin Calcium (Atorvastatin Calcium 20 Mg Tablet) 20 mg PO BEDTIME [facility] Last Admin: 10/06/21 20:25 Dose: 20 mg Documented by: MATY Azithromycin (Azithromycin 250 Mg Tablet) 250 mg PO Q24H [facility] Stop: 10/08/21 10:16 Last Admin: 10/07/21 08:16 Dose: 250 mg Documented by: TOM Enoxaparin Sodium (Enoxaparin Sodium 40 Mg/0.4 Ml Syringe) 40 mg SUBCUT Q24H [facility] Last Admin: 10/06/21 16:44 Dose: 40 mg Documented by: MATY Finasteride (Finasteride 5 Mg Tablet) 5 mg PO DAILY [facility] Last Admin: 10/07/21 08:12 Dose: 5 mg Documented by: TOM Fluticasone/Vilanterol (Fluticasone/Vilanterol 100/25 Blst.W.Dev) 1 puff INHALE RDAILY [facility] Last Admin: 10/07/21 07:54 Dose: 1 puff Documented by: MEHREEN Sodium Chloride (Ns) 1,000 mls @ 500 mls/hr IVCONT .Q2H JOANNE Stop: 10/07/21 10:59 Amiodarone HCl (Nexterone) 150 mg in 100 mls @ 600 mls/hr IV ONCE ONE Stop: 10/07/21 09:39 Amiodarone HCl 900 mg/ Sodium (Chloride) 518 mls @ 34.533 mls/hr IVCONT .Q15H1M [facility]; Protocol Insulin Human Lispro (Insulin Lispro 100 Unit/Ml 3 Ml Vial) 0 unit SUBCUT QIDACHS [facility]; Protocol Last Admin: 10/07/21 07:40 Dose: Not Given Documented by: TOM Non-Admin Reason: No Insulin Coverage Metformin HCl (Metformin Hcl 1,000 Mg Tablet) 1,000 mg PO BID [facility] Last Admin: 10/07/21 08:12 Dose: 1,000 mg Documented by: TOM Pharmacy Consult (Consult Rx Perform Med Rec) 1 each MISCELLANE ONCE PRN PRN Reason: Consult order Saliva Substitute (Dry Mouth [place] 60 Ml [place]) 1 spray MUCOUS MEM Q2H PRN PRN Reason: dry mouth Sodium Chloride (0.9 % Sodium Chloride Flush 3 Ml Syringe) 3 ml IVFLUSH QSHIFT [facility] Last Admin: 10/07/21 08:12 Dose: 3 ml Documented by: TOM Tamsulosin HCl (Tamsulosin Hcl 0.4 Mg Capsule) 0.8 mg PO BEDTIME [facility] Last Admin: 10/06/21 20:26 Dose: 0.8 mg Documented by: MATY Labs CBC & Chem 7: 10/07/21 06:10 10/07/21 06:10 Labs: Laboratory Results - last 24 hr 10/06/21 10/06/21 10/06/21 11:18 15:56 19:46 MCV MCH MCHC RDW Plt Count MPV Absolute Nucleated RBC Nucleated RBC % (auto) Anion Gap Estim Creat Clear Calc Estimated GFR POC Glucose 150 H 181 H 180 H Fasting Glucose Calcium 10/07/21 10/07/21 10/07/21 06:10 06:10 07:24 MCV 92.0 MCH 26.8 L MCHC 29.1 L RDW 13.2 Plt Count 151 L MPV 11.8 Absolute Nucleated RBC 0.000 Nucleated RBC % (auto) 0.0 Anion Gap 15 Estim Creat Clear Calc 32.5 Estimated GFR 23 POC Glucose 136 H Fasting Glucose 148 H Calcium 8.6 10/07/21 09:06 MCV MCH MCHC RDW Plt Count MPV Absolute Nucleated RBC Nucleated RBC % (auto) Anion Gap Estim Creat Clear Calc Estimated GFR POC Glucose 180 H Fasting Glucose Calcium Microbiology Microbiology Results: Microbiology 10/04/21 14:05 Urine Culture - Preliminary Urine Catheterized - Blanco Catheter Culture in progress. 10/04/21 09:30 Gram Stain - Final Sputum - Expectorated Sputum Culture - Final Assessment and Plan (1) Obesity hypoventilation syndrome: Status: Acute Assessment and Plan: 66M admitted for metabolic encephalopathy due to hypoglycemia, course complicated by acute on chronic hypoxic and hypercapneic respiratory failure requiring rescue bipap in ICU, also complicated by acute on chronic diastolic chf, needing diuresis, metabolic alkalosis, bronchitis. patient had improved and was downgraded to medical floor 10/05/21. this AM, 10/07/21, called for code rolanda. patient was pulseless, rhtyhym was borderline QRS, at first interpreted as pulseless Vtach, received 2 shocks, then appeared to be more PEA, received multiple epi, nahco3, and 1L NS, ROSC was obtained after about 20 minutes. rythem was afib with rvr, sbp around 130. (POC was about 180), of note some small scraps of paperlike material were noted in suction tubing, ?aspiration. cardiac arrest s/p ROSC, now new afib with rvr transfer to ICU, amio PHYLICIA ? hypovolemic monitor initially presented with metabolic encephalopathy due to hypoglcyemia and acute on chronic hypoxic and hypercapneic respiratory failure due to OHS and COPD, as well as acute on chronic diastolic chf encephalopathy was using bipap at night - / 30fio2 diamox 250mg bid DM with hypoglycemia lantus discontinued had been started metformin insulin sliding scale monitor poc full code Quality Stroke Does the patient have a stroke diagnosis?: No VTE Prior VTE?: No VTE Risk Level:: Medical - moderate - high VTE Device Contraindication: Treatment Not Indicated VTE Drug Contraindication: N/A - Med Ordered
[2021-10-07 10:11] LABS: Glucose, Whole Blood 226 mg/dL (60-115)
[2021-10-07] MEDS: Rocuronium Bromide 50 MG/5 ML VIAL IVPUSH ×2 (10:13→12:10)
[2021-10-07] MEDS: Midazolam HCl/PF 2 MG/2 ML VIAL IVPUSH (10:13)
[2021-10-07] MEDS: Amiodarone HCL 150 MG/3 ML VIAL IV ×2 (10:25→11:09)
[2021-10-07] MEDS: propofoL 1,000 MG/100 ML VIAL 15.64 MG IVCONT (10:30)
[2021-10-07] MEDS: Amiodarone HCL 900 MG in 0.9 % Sodium Chloride 500 ML 34.53 MG IVCONT (10:36)
[2021-10-07 11:34] LABS: Glucose, Whole Blood 245 mg/dL (60-115)
[2021-10-07] MEDS: Esmolol HCl/NaCl Iso 2,500 MG/250 ML IV.SOLN 39.09 MG IVCONT (11:40)
[2021-10-07] MEDS: Insulin Lispro 100 UNIT/ML 3 ML VIAL SUBCUT (11:42)
--- NOTE | 2021-10-07 12:07 | CA_ITS ---
Transthoracic Echocardiogram Patient (Last, First, Middle): Hermes Matias W Gender: Male Date of : 1955 Age: 66 Procedure Date: 10/07/2021 Procedure Type: Transthoracic Echocardiogram Location: ICU Height: 162.56 cm Weight: 130.18 kg BSA: 2.28 m2 Heart Rate: bpm BP: 92 / 37 mmHg Bar Waiter/Waitress: JENNIFER Diaz MD: Gary Terrazas Obstetrical Anesthesiologist: Mathew Alvarez MD Symptoms: s/p cardiac arrest Study Quality: Fair ECG Rhythm: Sinus Conclusions: - 1. Normal LV systolic function with mild LVH with septal bounce consistent with pericardial constraint 2. Moderately enlarged RV with systolic dysfunction 3. Moderately elevated right ventricular systolic pressure and possible significantly elevated right atrial pressures 4. Trivial pericardial effusion Findings Left Ventricle Normal left ventricular cavity size. There is mildly increased left ventricular wall thickness. The left ventricular systolic function is normal. The visually estimated ejection fraction is between 55-60%. There is abnormal septal motion with excessive respiratory change. Diastolic function is indeterminate on the basis of available data. Right Ventricle Moderately increased right ventricular cavity size. There is moderately decreased right ventricular systolic function. Atria Interatrial shunt cannot be excluded. Tricuspid Valve There is mild tricuspid valve regurgitation. Significantly elevated right atrial pressure. Moderate pulmonary hypertension is present. Venous The inferior vena cava is moderately dilated and does not collapse with inspiration. IVC non collapsibility could be due to positive-pressure ventilation, significantly elevated right atrial pressures also likely Pericardium/Pleural There is a trivial loculated pericardial effusion overlying the left ventricle. Measurements 2D Linear Measurements IVSd: 1.28 0.6-0.9/0.6-1.0 cm LVIDd: 4.50 3.9-5.3/4.2-5.9 cm LVIDd Index: 1.97 2.4-3.2/2.2-3.1 cm/m2 LVIDs: 3.06 2.0-3.6 cm LVPWd: 1.26 0.7-1.1 cm LV Mass: 268.10 67-162/88-224 g LV Mass Index: 117.59 43-95/49-115 g/m2 Tricuspid Valve TR Pk Yonathan: 3.00 TR Pk Grad: 36.00 RA Press: 15.00 RVSP: 51.00 Updated in Other Vendor System with Status of Final Mathew Alvarez MD electronically signed on 10/07/2021 1:43:18 PM with status of Final
[2021-10-07 12:09] LABS: VBG Base Excess -4.2 mmol/L; VBG HCO3 23 mmol/L (22-26); VBG pCO2 55 mmHg; VBG pH 7.23 (7.32-7.43); VBG pO2 56 mmHg
[2021-10-07 12:11] LABS: Hematocrit 34.8 % (42.0-52.0); Hemoglobin 10.2 g/dl (14.0-18.0); Mean Corpuscular HGB Conc 29.3 g/dl (31.0-36.0); Mean Corpuscular Hemoglobin 27.1 pg (27.0-33.0); Mean Corpuscular Volume 92.6 fL (80.0-98.0); Mean Platelet Volume 11.5 fL (9.4-12.4); Platelet Count 210 X10*3/uL (160-400); Red Blood Count 3.76 X10*6/uL (4.60-5.80); Red Cell Distribution Width 13.5 % (11.0-16.0)
[2021-10-07 12:24] LABS: Lactic Acid 2.4 mmol/L (0.5-2.0)
[2021-10-07 12:28] LABS: Alanine Aminotransferase 44 U/L (0-40); Albumin Level 3.4 g/dL (3.5-5.0); Alkaline Phosphatase 113 U/L (39-117); Anion Gap 22 (12-20); Aspartate Amino Transferase 49 U/L (5-37); Bilirubin Total 0.7 mg/dL (0.0-1.0); Blood Urea Nitrogen 59 mg/dL (9-16); Calcium 8.7 mg/dL (8.4-10.2); Carbon Dioxide 22 mmol/L (22-29); Chloride 103 mmol/L (96-108); Creatinine Clr Calc Pharmacy 27.8; Estimated Glomerular Filt Rate 19; Glucose Random 330 mg/dL (60-115); Magnesium 2.4 mg/dL (1.6-2.6); Phosphorus 5.1 mg/dL (2.7-4.5); Potassium 4.5 mmol/L (3.3-5.1); Sodium 142 mmol/L (135-145); Total Protein 6.4 g/dL (6.5-8.0)
[2021-10-07 12:49] LABS: D Dimer High Sensitivity 10583 NG/ML
[2021-10-07 12:55] LABS: B Type Natriuretic Peptide 207 pg/mL (<100); Troponin-I High Sensitivity 146.2 ng/L (<3.5-35.0)
[2021-10-07 13:13] LABS: ABG Base Excess -6.5 mmol/L; ABG HCO3 20 mmol/L (22-26); ABG pCO2 47 mmHg (32-45); ABG pCO2 TC 49 mmHg (32-45); ABG pH 7.24 (7.35-7.45); ABG pH TC 7.23 (7.35-7.45); ABG pO2 78 mmHg (83-108); ABG pO2 TC 84 (83-108)
[2021-10-07 13:29] LABS: Cancel Lactic Acid Canceled
[2021-10-07] MEDS: Sodium Bicarbonate 8.4% 50 MEQ/50 ML SYRINGE 100 MEQ IVPUSH (13:32)
[2021-10-07] MEDS: Heparin Sodium,Porcine 5,000 UNIT/ML VIAL 3000 UNIT IVPUSH (13:57)
[2021-10-07] MEDS: Heparin Sodium,Porcine/1/2NS 25,000 UNIT/250 ML IV.SOLN 10 UNIT IVCONT (14:00)
[2021-10-07 14:12] LABS: Hemoglobin 10.6 g/dl (14.0-18.0); Mean Corpuscular HGB Conc 29.4 g/dl (31.0-36.0); Mean Corpuscular Volume 91.6 fL (80.0-98.0); Mean Platelet Volume 11.8 fL (9.4-12.4); Platelet Count 234 X10*3/uL (160-400); Red Blood Count 3.93 X10*6/uL (4.60-5.80); Red Cell Distribution Width 13.3 % (11.0-16.0); White Blood Count 22.5 X10*3/uL (4.8-10.8)
[2021-10-07 14:22] LABS: INTERNATIONAL NORM RATIO 1.3 (0.9-1.1); Prothrombin Time 14.8 SEC (9.9-13.0)
[2021-10-07 14:24] LABS: PTT Heparin Drip 37.6 SEC (53-77.9)
--- NOTE | 2021-10-07 14:39 | PHA.PROG ---
Admission Date/Time: September 25, 2021 15:38 Indication: Weight in k.3 kg Serum Creatinine - Last 168 Hours 09/30/21 10/01/21 10/01/21 18:27 05:19 17:46 Creatinine 1.15 1.15 1.22 10/02/21 10/02/21 10/03/21 05:08 18:12 05:20 Creatinine 1.15 1.21 1.14 10/04/21 10/05/21 10/06/21 05:10 05:15 06:49 Creatinine 1.04 0.94 1.62 H 10/07/21 10/07/21 06:10 12:03 Creatinine 2.77 H 3.24 H Estimated CrCl and GFR - Last 168 Hours 09/30/21 10/01/21 10/01/21 18:27 05:19 17:46 Estim Creat Clear Calc 79.7 79.0 74.4 Estimated GFR > 60 > 60 59 10/02/21 10/02/21 10/03/21 05:08 18:12 05:20 Estim Creat Clear Calc 79.0 74.2 80.0 Estimated GFR > 60 60 > 60 10/04/21 10/05/21 10/06/21 05:10 05:15 06:49 Estim Creat Clear Calc 87.0 96.2 55.2 Estimated GFR > 60 > 60 43 10/07/21 10/07/21 06:10 12:03 Estim Creat Clear Calc 32.5 27.8 Estimated GFR 23 19 Vancomycin Loading Dose: 2000MG Current Vancomycin Dosing Regimen: 1 time dose based on renal function Vancomycin Monitoring using AUC goal of 400 - 600 range with trough as surrogate marker: n/a Date and Time for next Vancomycin Level to be drawn: 5am Pharmacist Comments on Vancomycin Plan: Patients renal function is decreasing. Spoke with Dr Terrazas and wanted a 1 time dose of 2 grams and trough ordered for 5am to see how its clearing. Will follow up daily based on changing renal function. Vancomycin dosing will take advantage of [employer] as a clinical decision support tool that uses Bayesian modeling to calculate individual patient's pharmacokinetic parameters and forecast the patient's drug concentration time course with the target goal AUC 24 range of 400 - 600 mg/L/hr.
[2021-10-07 14:42] LABS: ABG Refer to POC result
[2021-10-07 14:42] LABS: Venous Blood Gas Refer to POC result
[2021-10-07 14:43] LABS: Appearance Urine CLOUDY; Color Urine YELLOW; Glucose Urine UA NEG (NEG); Leukocyte Esterase Urine 2+ (NEG); Nitrite Urine NEG (NEG); PH 5.5 (5.0-8.0); Specific Gravity - Urine >= 1.030 (1.005-1.025); UACC Culture Trigger YES; Urine Blood 2+ (NEG); Urine Ketones 5 MG/DL (NEG); Urine Protein 3+ MG/DL (NEG-TRACE)
[2021-10-07] MEDS: Piperacillin Sodium/Tazobactam 3.375 GM in 0.9 % Sodium Chloride 50 ML IV ×2 (14:44→20:34)
[2021-10-07 14:52] LABS: WBC Urine TNTC /HPF (0-4)
[2021-10-07 14:53] LABS: Bacteria Urine 3+ /LPF; Squamous Epithelial Cell Urine 1+ /LPF; WBC Clumps Urine NOTED
[2021-10-07 14:55] LABS: Glucose, Whole Blood 259 mg/dL (60-115)
[2021-10-07 14:57] LABS: Partial Thromboplastin Time 35.8 SEC (24.1-38.0)
--- NOTE | 2021-10-07 15:08 | P.PNCC_ITS ---
Subjective Subjective Date of Service: 10/07/21 Interval History: Mr. Matias was transferred to the ICU this morning after a cardiac arrest on the floor. The patient is a 66-year-old male, former smoker, quit 15 years ago, with underlying history of morbid obesity, possible COPD, definite OHS, supplemental oxygen dependent with CO2 retention, and diabetes mellitus. ?He?s supposed to be on NIV at home, prescribed by Dr. Choi at [facility], but they haven?t been able to get his machine to work for him. His [employer] records list a history of congestive heart failure, but I have been unable to find evidence of that, other than the fact that his echo on September 27 shows some diastolic dysfunction. ?Note that BNP levels in the [facility] records, both last year and this year, were normal. The patient lives at home with his . ?Five adult children live upstairs. ?According to the , the patient ambulates with a walker, but doesn?t get around much. ?His mental status is usually fully normal. ?He needs a little bit of help getting dressed, with pulling his socks or his pants on. ?In regards to toileting, the patient uses a urinal or a commode. ?The patient bathes with sponge baths. ?In regards to mobility, it seems to me from what his says, that he often needs a bit of a hand getting out of bed or getting out of a chair. ?But from what the nurses tell me and from my lengthy conversation with the patient's , I suspect that she was underestimating his disability. HISTORY OF PRESENT ILLNESS: ?The patient was admitted to [facility] on 09/25/2021 with altered mental status secondary to hypoglycemia. ?He was also noted to be in congestive heart failure with significant compensated respiratory acidosis. ?ABG on admission (on unstated FiO2) showed 7.41/91/75/+27. ?The patient was admitted to medicine, diuresed, and given Diamox. On Sep 27, echo showed: ?- Mild LVH; normal LV size and systolic function, w EF 60-65%, no RWMAs, w abnormal diastolic function. ?- Normal RV cavity size and systolic function. ?RVSP 22mm ?- Mod dilated LA. ?- Normal AV; no MR or MS; normal TV ?- Dilated IVC with > 50% insp collapse. The patient required transfer to the ICU early on Sep 28 [facility] of confusion, shortness of breath, and severe hypercarbia, requiring BiPAP. ?In the ICU, he was continued on diuresis, Diamox, and BiPAP. ?He was able to come off BiPAP onto 4-5 L NC oxygen for periods during the day. ?By 10/03, he was negative 10 liters. ?His BP on that day though dropped into the 70s-80s, so the diuretics were stopped. ?Echo ([facility] of hypotension) showed: ?- Normal LV size and fxn. ?- RV maybe top normal ?- Tricuspid valve showed 1-2+ TR by color vargas, with CWD measuring 3.0 m/sec ?- IVC was dilated at 2.3 cm, with about 40% insp collapse. ?Estimated CVP 12mm. ?Estimated RVSP 48mm. The patient was started on midodrine. ?Although the hypotension was felt to be secondary to relative hypovolemia, he was pancultured just to be sure. ?All cultures came back negative, altho sputum suggests bronchitis, so I started him on a 5 day course of oral Zithromax.? He improved significantly over the next couple of days, he became more animated and more oriented and appropriate, and his PvCO2 came down to 63.? He was transferred to [facility] on 10/05 and it was a nticipated that he might be discharged to rehab today. This morning about 9am a code blue was called.? According to Dr. Ballard, the patient was pulseless, rhythm was borderline QRS, at first interpreted as pulseless Vtach, received 2 shocks, then appeared to be more PEA.? The patient was intubated during the resuscitation. ?Ultimately, was shocked twice for Vfib, and was given five rounds of epi and one bicarb.? ROSC was obtained after 16 min of CPR.? Rhythm was afib with RVR, SBP around 130.? POC was about 180.? Of note, some small scraps of paperlike material were noted in suction tubing.? ? aspiration.? The patient was transferred down to the ICU. I saw the patient shortly after arrival.? HR was 120s-150s, prob afib.? BP was 99/27, Sat was low 90s on 80%/+10.? Temp 100.4.? The patient was unresponsive, but was making agonal spont resp efforts. ?No JVD, chest was clear w normal exp phase.? Irregular rhythm.? No murmur or gallops were appreciated.? Abdomen was benign.? Less than 1+ peripheral edema. Bedside ECHOCARDIOGRAM for hemodynamic monitoring:? Very limited views.? Unable to fully visualize the LV from the parasternal or apical four-chamber planes, but LV function look probably normal. ?RV poorly visualized but probably normal size.? From the subcostal plane, the LV was noted to be significantly hypertrophied.? The RV looked mildly enlarged with the RV:LV cavity ratio a pproximately 1.0 from this view.? Continuous-wave Doppler jet measured 3.0 m/sec.? IVC measured 2.4 cm with no inspiratory collapse (on positive pressure ventilation).? Estimated RVSP 46mm. Levophed was started.? I placed a left internal jugular central venous line (separate procedure).? We gave the patient an amiodarone bolus.? He broke briefly into sinus rhythm and then back into atrial fibrillation.? We started an amiodarone drip and bolused him again with amiodarone. ?Eventually we got him into a more regular sinus rhythm, and put him on low-dose esmolol to keep him in sinus rhythm.? Levophed dose was up to 0.5ug.? An arterial line was placed (separate procedure). LABORATORY DATA:? As below.? Notably, white count is bumped up to 20, PT was 14/1.3 with a PTT of 37.? D-dimer was 74200. ?BUN/creatinine up to 59/3.2 (up from 53/2.7 this morning), random glucose was 330, phosphorus 5.1, high sensitivity troponin 146, BNP 207, lactic acid was 2.4.? Venous blood gas showed 7.23/55/-4.? Arterial blood gas after the A-line was placed, with the patient on 80% oxygen/10 cm peep, showed 7.24/47/78/-6. Chest chest x-ray showed only opacity of the right base with a fusion, similar to the prior study of 10/03.? No infiltrates. Bilateral lower extremity duplex scan showed no DVT. IMPRESSION: 1. Former smoker. ?He may have some COPD on that basis, but none of his CXRs or CT scans prove it. 2. Prev echo is c/w some diastolic dysfxn. ?My echo 10/03, along with the right pleural effusion, and the fact that the patient became hypotensive with diuresis, and then his renal indices improved after stopping diuresis, all suggest underlying right heart failure, no surprise given his obesity and OHS/KATIE. 3. Underlying OHS with CO2 retention. ?His pCO2 finally came down after rigorous nighttime BiPAP and high dose Diamox. 4. Underlying mild renal insuffic.? May have cardiorenal syndrome (with the right heart failure). 5. Cardiac arrest this morning.? Undetermined etiology.? PE is a definite possibility, although it seems that his echo today is not necessarily significantly changed from prior echos.? Nevertheless, we have no other working etiology.? Aspiration does not seem likely, given the clear chest x-ray.? The patient is not stable enough to go to a scan. ?We have started him on heparin infusion. 6. Afib.? A frequent accompaniment to pulmonary embolism.? For now, continue the amiodarone and esmolol. 7. Acute respiratory failure.? Secondary to above. 8. Metabolic encephalopathy.? Secondary to cardiac arrest.? We?re cooling him now. 9. PHYLICIA.? ATN 2? cardiac arrest.? Right now he is making minimal urine. ?May very well progress to dialysis. 10. Diabetes mellitus. ?Started on an insulin drip. 11. ?Acute metabolic acidosis.? Secondary to PHYLICIA. 12. ID: ?I?ve cultured him and started him on antibiotics. I had a long talk with the patient's by telephone.? We discussed what happened this morning, what we are doing now, his acute kidney injury, and what his prognosis is, both intermediate and long-term.? Clearly, he is facing a very burdensome intermediate and long-term future.? I asked her what she thought he would want.? The only thing she was able to say was that on admission, he told Dr. Ballard that if his brain was not working, he wouldn?t want to be kept alive. ?It?s not clear that she would want dialysis.? We left it that we?ll see how things go over the next 24 hours, and reconnect then. Critical care time (including multiple discussions with Dr. Ballard, and hospital chart review; excluding procedures): ?3+ hours. Critical Care Time (minutes): 180 Physical Exam Vital Signs: Vital Signs: Last Vital Signs Temp 100.8 F H 10/07/21 14:48 Pulse 74 10/07/21 14:48 Resp 16 10/07/21 14:48 BP 120/55 L 10/07/21 14:48 Pulse Ox 93 10/07/21 14:48 Oxygen Flow Rate 30 10/04/21 22:40 Body Mass Index 49.3 Objective Data Labs CBC & Chem 7: 10/07/21 14:04 10/07/21 12:03 Labs: Laboratory Results - last 24 hr 10/06/21 10/06/21 10/07/21 15:56 19:46 06:10 WBC 9.2 RBC 3.25 L Hgb 8.7 L Hct 29.9 L MCV 92.0 MCH 26.8 L MCHC 29.1 L RDW 13.2 Plt Count 151 L MPV 11.8 Absolute Nucleated RBC 0.000 Nucleated RBC % (auto) 0.0 PT INR APTT PTT (Heparin Protocol) D-Dimer High Sensitivty O2 Saturation ABG pH at Pt Temp ABG pH (Temp Correct) ABG pCO2 at Pt Temp ABG pCO2 (Temp Corrct ABG pO2 at Pt Temp ABG pO2 (Temp Correct ABG HCO3 ABG Base Excess (Actual) VBG pH VBG pCO2 VBG pO2 VBG HCO3 VBG O2 Saturation VBG Base Excess Sodium Potassium Chloride Carbon Dioxide Anion Gap BUN Creatinine Estim Creat Clear Calc Estimated GFR POC Glucose 181 H 180 H Random Glucose Fasting Glucose Lactic Acid Calcium Phosphorus Magnesium Total Bilirubin AST ALT Alkaline Phosphatase Troponin I High Sens B-Natriuretic Peptide Total Protein Albumin Urine Color Urine Appearance Urine pH Ur Specific [place] Urine Protein Urine Glucose (UA) Urine Ketones Urine Blood Urine Nitrite Ur Leukocyte Esterase Urine RBC Urine WBC Urine WBC Clumps Ur Squamous Epith Cells Urine Bacteria 10/07/21 10/07/21 10/07/21 06:10 07:24 09:06 WBC RBC Hgb Hct MCV MCH MCHC RDW Plt Count MPV Absolute Nucleated RBC Nucleated RBC % (auto) PT INR APTT PTT (Heparin Protocol) D-Dimer High Sensitivty O2 Saturation ABG pH at Pt Temp ABG pH (Temp Correct) ABG pCO2 at Pt Temp ABG pCO2 (Temp Corrct ABG pO2 at Pt Temp ABG pO2 (Temp Correct ABG HCO3 ABG Base Excess (Actual) VBG pH VBG pCO2 VBG pO2 VBG HCO3 VBG O2 Saturation VBG Base Excess Sodium 142 Potassium 4.1 Chloride 104 Carbon Dioxide 27 Anion Gap 15 BUN 53 H D Creatinine 2.77 H Estim Creat Clear Calc 32.5 Estimated GFR 23 POC Glucose 136 H 180 H Random Glucose Fasting Glucose 148 H Lactic Acid Calcium 8.6 Phosphorus Magnesium Total Bilirubin AST ALT Alkaline Phosphatase Troponin I High Sens B-Natriuretic Peptide Total Protein Albumin Urine Color Urine Appearance Urine pH Ur Specific [place] Urine Protein Urine Glucose (UA) Urine Ketones Urine Blood Urine Nitrite Ur Leukocyte Esterase Urine RBC Urine WBC Urine WBC Clumps Ur Squamous Epith Cells Urine Bacteria 10/07/21 10/07/21 10/07/21 10:07 11:31 12:00 WBC RBC Hgb Hct MCV MCH MCHC RDW Plt Count MPV Absolute Nucleated RBC Nucleated RBC % (auto) PT INR APTT PTT (Heparin Protocol) D-Dimer High Sensitivty 48740 O2 Saturation ABG pH at Pt Temp ABG pH (Temp Correct) ABG pCO2 at Pt Temp ABG pCO2 (Temp Corrct ABG pO2 at Pt Temp ABG pO2 (Temp Correct ABG HCO3 ABG Base Excess (Actual) VBG pH VBG pCO2 VBG pO2 VBG HCO3 VBG O2 Saturation VBG Base Excess Sodium Potassium Chloride Carbon Dioxide Anion Gap BUN Creatinine Estim Creat Clear Calc Estimated GFR POC Glucose 226 H 245 H Random Glucose Fasting Glucose Lactic Acid Calcium Phosphorus Magnesium Total Bilirubin AST ALT Alkaline Phosphatase Troponin I High Sens B-Natriuretic Peptide Total Protein Albumin Urine Color Urine Appearance Urine pH Ur Specific [place] Urine Protein Urine Glucose (UA) Urine Ketones Urine Blood Urine Nitrite Ur Leukocyte Esterase Urine RBC Urine WBC Urine WBC Clumps Ur Squamous Epith Cells Urine Bacteria 10/07/21 10/07/21 10/07/21 12:03 12:03 12:03 WBC 20.0 H RBC 3.76 L Hgb 10.2 L Hct 34.8 L MCV 92.6 MCH 27.1 MCHC 29.3 L RDW 13.5 Plt Count 210 D MPV 11.5 Absolute Nucleated RBC 0.000 Nucleated RBC % (auto) 0.0 PT INR APTT PTT (Heparin Protocol) D-Dimer High Sensitivty O2 Saturation ABG pH at Pt Temp ABG pH (Temp Correct) ABG pCO2 at Pt Temp ABG pCO2 (Temp Corrct ABG pO2 at Pt Temp ABG pO2 (Temp Correct ABG HCO3 ABG Base Excess (Actual) VBG pH VBG pCO2 VBG pO2 VBG HCO3 VBG O2 Saturation VBG Base Excess Sodium 142 Potassium 4.5 Chloride 103 Carbon Dioxide 22 Anion Gap 22 H BUN 59 H Creatinine 3.24 H Estim Creat Clear Calc 27.8 Estimated GFR 19 POC Glucose Random Glucose 330 H D Fasting Glucose Lactic Acid 2.4 H* Calcium 8.7 Phosphorus 5.1 H Magnesium 2.4 Total Bilirubin 0.7 AST 49 H D ALT 44 H Alkaline Phosphatase 113 D Troponin I High Sens B-Natriuretic Peptide Total Protein 6.4 L Albumin 3.4 L Urine Color Urine Appearance Urine pH Ur Specific [place] Urine Protein Urine Glucose (UA) Urine Ketones Urine Blood Urine Nitrite Ur Leukocyte Esterase Urine RBC Urine WBC Urine WBC Clumps Ur Squamous Epith Cells Urine Bacteria 10/07/21 10/07/21 10/07/21 12:03 12:03 13:06 WBC RBC Hgb Hct MCV MCH MCHC RDW Plt Count MPV Absolute Nucleated RBC Nucleated RBC % (auto) PT INR APTT PTT (Heparin Protocol) D-Dimer High Sensitivty O2 Saturation 92.0 ABG pH at Pt Temp 7.24 L ABG pH (Temp Correct) 7.23 L ABG pCO2 at Pt Temp 47 H ABG pCO2 (Temp Corrct 49 H ABG pO2 at Pt Temp 78 L ABG pO2 (Temp Correct 84 ABG HCO3 20 L ABG Base Excess (Actual) -6.5 VBG pH 7.23 L VBG pCO2 55 VBG pO2 56 VBG HCO3 23 VBG O2 Saturation 78.0 VBG Base Excess -4.2 Sodium Potassium Chloride Carbon Dioxide Anion Gap BUN Creatinine Estim Creat Clear Calc Estimated GFR POC Glucose Random Glucose Fasting Glucose Lactic Acid Calcium Phosphorus Magnesium Total Bilirubin AST ALT Alkaline Phosphatase Troponin I High Sens 146.2 H* D B-Natriuretic Peptide 207 H Total Protein Albumin Urine Color Urine Appearance Urine pH Ur Specific [place] Urine Protein Urine Glucose (UA) Urine Ketones Urine Blood Urine Nitrite Ur Leukocyte Esterase Urine RBC Urine WBC Urine WBC Clumps Ur Squamous Epith Cells Urine Bacteria 10/07/21 10/07/21 10/07/21 14:04 14:04 14:04 WBC 22.5 H RBC 3.93 L Hgb 10.6 L Hct 36.0 L MCV 91.6 MCH 27.0 MCHC 29.4 L RDW 13.3 Plt Count 234 MPV 11.8 Absolute Nucleated RBC 0.000 Nucleated RBC % (auto) 0.0 PT 14.8 H INR 1.3 H APTT 35.8 PTT (Heparin Protocol) 37.6 L D-Dimer High Sensitivty O2 Saturation ABG pH at Pt Temp ABG pH (Temp Correct) ABG pCO2 at Pt Temp ABG pCO2 (Temp Corrct ABG pO2 at Pt Temp ABG pO2 (Temp Correct ABG HCO3 ABG Base Excess (Actual) VBG pH VBG pCO2 VBG pO2 VBG HCO3 VBG O2 Saturation VBG Base Excess Sodium Potassium Chloride Carbon Dioxide Anion Gap BUN Creatinine Estim Creat Clear Calc Estimated GFR POC Glucose Random Glucose Fasting Glucose Lactic Acid Calcium Phosphorus Magnesium Total Bilirubin AST ALT Alkaline Phosphatase Troponin I High Sens B-Natriuretic Peptide Total Protein Albumin Urine Color Urine Appearance Urine pH Ur Specific [place] Urine Protein Urine Glucose (UA) Urine Ketones Urine Blood Urine Nitrite Ur Leukocyte Esterase Urine RBC Urine WBC Urine WBC Clumps Ur Squamous Epith Cells Urine Bacteria 10/07/21 10/07/21 14:27 14:51 WBC RBC Hgb Hct MCV MCH MCHC RDW Plt Count MPV Absolute Nucleated RBC Nucleated RBC % (auto) PT INR APTT PTT (Heparin Protocol) D-Dimer High Sensitivty O2 Saturation ABG pH at Pt Temp ABG pH (Temp Correct) ABG pCO2 at Pt Temp ABG pCO2 (Temp Corrct ABG pO2 at Pt Temp ABG pO2 (Temp Correct ABG HCO3 ABG Base Excess (Actual) VBG pH VBG pCO2 VBG pO2 VBG HCO3 VBG O2 Saturation VBG Base Excess Sodium Potassium Chloride Carbon Dioxide Anion Gap BUN Creatinine Estim Creat Clear Calc Estimated GFR POC Glucose 259 H Random Glucose Fasting Glucose Lactic Acid Calcium Phosphorus Magnesium Total Bilirubin AST ALT Alkaline Phosphatase Troponin I High Sens B-Natriuretic Peptide Total Protein Albumin Urine Color YELLOW Urine Appearance CLOUDY Urine pH 5.5 Ur Specific [place] >= 1.030 H Urine Protein 3+ H Urine Glucose (UA) NEG Urine Ketones 5 Urine Blood 2+ H Urine Nitrite NEG Ur Leukocyte Esterase 2+ H Urine RBC 10-14 H Urine WBC TNTC H Urine WBC Clumps NOTED Ur Squamous Epith Cells 1+ Urine Bacteria 3+ Microbiology Microbiology Results: Microbiology 10/04/21 14:05 Urine Catheterized - Blanco Catheter Urine Culture - Preliminary Gram positive cocci 10/04/21 09:30 Sputum - Expectorated Gram Stain - Final 10/04/21 09:30 Sputum - Expectorated Sputum Culture - Final 10/03/21 10:55 Blood - Venous Blood Culture - Preliminary No growth after 48 hours. 10/03/21 10:55 Blood - Venous Blood Culture - Preliminary No growth after 48 hours. 10/03/21 Unknown Urine Catheterized - Blanco Catheter Urine Culture - Final 10/03/21 20:23 Sputum - Expectorated Gram Stain - Final 10/03/21 20:23 Sputum - Expectorated Sputum Culture - Final 10/03/21 07:33 Sputum - Expectorated Gram Stain - Final 10/03/21 07:33 Sputum - Expectorated Sputum Culture - Final Quality Stroke Does the patient have a stroke diagnosis?: No VTE Prior VTE?: No VTE Risk Level:: Medical - moderate - high VTE Device Contraindication: Treatment Not Indicated VTE Drug Contraindication: Treatment Not Indicated Critical Care Time Critical Care Time (minutes): 180
[2021-10-07] MEDS: Chlorhexidine Gluc Oral Rinse 15 ML MOUTHWASH BUCCAL ×2 (15:33→22:02)
[2021-10-07] MEDS: Insulin Regular/NS 100 UNIT/100 ML PLAST..BAG IVCONT (15:34)
[2021-10-07 15:43] LABS: ABG Base Excess -2.9 mmol/L; ABG HCO3 23 mmol/L (22-26); ABG pCO2 49 mmHg (32-45); ABG pCO2 TC 52 mmHg (32-45); ABG pH 7.29 (7.35-7.45); ABG pH TC 7.27 (7.35-7.45); ABG pO2 104 mmHg (83-108); ABG pO2 TC 111 (83-108)
[2021-10-07] MEDS: propofoL 1,000 MG/100 ML VIAL 23.45 MG IVCONT (15:47)
[2021-10-07 16:35] LABS: Glucose, Whole Blood 198 mg/dL (60-115)
[2021-10-07 16:46] LABS: Troponin-I High Sensitivity 2533.3 ng/L (<3.5-35.0)
--- NOTE | 2021-10-07 16:57 | PC.NURSE ---
PT WAS ON IMC AND WAS NSR AT THE TIME, WENT INTO A BRIEF PERIOD OF RAPID AFIB AND WAS RAPIDLY BRADYCARDIC AT APPROXIMATELY 0900. RAPID RESPONSE CALLED, PT BECAME CYANOTIC AND PULSELESS AND CPR WAS INITIATED AT 09. EPI IVP ADMINISTERED AND ORAL AIRWAY PLACED AT 904. AT 905 MD PRESENT AT BEDSIDE ATTEMPTING INTUBATION. PT INTUBATED AT 906 #7.5 ETT 25 AT THE LIP. AT 907 EPI IVP ADMINISTERED, VFIB DISPLAYED ON MONITOR-PT SHOCKED 120J, COMPRESSIONS CONTINUED, ACLS CONTINUED UNTIL 917 WHEN THERE WAS A POSITIVE PULSE AND RHYTHM WAS SVT NOTED AT THAT TIME. PT THEN TRANSFERRED TO ICU FOR HIGHER LEVEL OF CARE. CODE TOTALED 16MINS, 5 EPI AND 1 BICARB ADMINISTERED THROUGHOUT, FAMILY CONTACTED. PT IN ICU REMAINS FEBRILE, ON A COOLING BLANKET WITH A GOAL TEMP OF 96 PER MD X24 HOURS. PT BP/MAPS LOW UPON TRANSFER AND REMAINS ON PRESSURE SUPPORT (LEVOPHED & VASOPRESSIN) AT THIS TIME WITH GOOD EFFECT. PT INTUBATED/SEDATED O2 SAT 88-93%, VENT SETTINGS ADJUSTED PER MD ORDER. TLC, OGT, ARELLANO AND KELLY PLACED BEDSIDE BY MD & RN AT APPROXIMATELY 1000. XRAY COMPLETED AND PLACEMENT CONFIRMED. HR REMAINED SVT ON THE MONITOR 160-180BPM, PT RECEIVED (2) 150MG IVP AMIODARONE AND WAS STARTED ON AMIODARONE AND ESMOLOL GTT AT APPROXIMATELY 1045 WITH GOOD EFFECT. ULTRASOUND COMPLETED TO RULE OUT DVT AND ECHOCARDIAGRAM DONE BEDSIDE PER MD ORDER TO RULE OUT PE, PT STARTED ON HEPARIN GTT. TROPONIN, CREATININE, AND LACTIC REMAIN ELEVATED- LAST TROP 2533.3, MD NOTIFIED OF ALL CRITICAL VALUES. EKG DONE PER MD ORDER WITH NO SIGNIFICANT CHANGES FROM PREVIOUS. PT HAS LOW URINE OUTPUT THROUGHOUT SHIFT AVERAGING APPROXIMATELY 0-10ML/HR, MD AWARE. URINE AND BLOOD CULTURES OBTAINED, PT STARTED ON VANCOMYCIN AND ZOSYN. SPUTUM CULTURES ORDERED BUT NOT OBTAINED PT HAS NO SECRETIONS AT THIS TIME. POC REMAINED ELEVATED IN THE 200s, INSULIN GTT STARTED AT APPROXIMATELY 1530 PER MD ORDER. AT THIS TIME PT REMAINS ON LEVOPHED GTT, ESMOLOL GTT, PROPOFOL GTT, HEPARIN GTT, AMIODARONE GTT, VASOPRESSIN GTT, AND INSULIN GTT. LABS TO BE TRENDED PER MD ORDER AND RN WILL CONTINUE TO MONITOR.
--- NOTE | 2021-10-07 17:00 | ECG_ITS ---
Test Reason : elevated troponin Blood Pressure : / mmHG Vent. Rate : 069 BPM Atrial Rate : 069 BPM P-R Int : 168 ms QRS Dur : 096 ms QT Int : 404 ms P-R-T Axes : 037 069 067 degrees QTc Int : 432 ms Normal sinus rhythm Nonspecific ST abnormality Possible Early repolarization Borderline ECG When compared with ECG of 25-SEP-2021 10:18, No significant change was found Referred By: Gary Terrazas Electronically Signed By:SALVATORE MONTELONGO MD
[2021-10-07 17:41] LABS: Glucose, Whole Blood 264 mg/dL (60-115)
[2021-10-07 18:46] LABS: Glucose, Whole Blood 175 mg/dL (60-115)
[2021-10-07] MEDS: propofoL 1,000 MG/100 ML VIAL 31.27 MG IVCONT ×2 (18:59→22:01)
[2021-10-07 19:50] LABS: Glucose, Whole Blood 258 mg/dL (60-115)
[2021-10-07 20:06] LABS: PTT Heparin Drip 43.9 SEC (53-77.9)
--- NOTE | 2021-10-07 20:31 | W.MHC.ACPN ---
Advanced Care Planning Note Advanced Care Planning Note Discussed with: family member(s) ( and childre ) Time spent (in minutes): 30 Narrative: This is a late entry note of my meeting with this patient's and children which happened in the ICU waiting area on 10/07/2021 at 8:15 p.m.. A lengthy discussion took place in regards to the patient's current condition, we reviewed laboratories and explain to the best of my abilities its meaning as well as the clinical scenario of the patient, best and worst case scenarios as well as estimated prognosis. Family understands all the events that happened just prior to the transfer of this patient to the ICU as this was discussed in detail by Dr. Terrazas. After long discussion I was informed that they have all decided that if the patient was to have further complications such as another cardiac arrest, and they would not want him to be resuscitated. If this was to happen at this point they would consider making the patient comfortable and allowing him to past to a better life in a natural way. As for now they would like to continue with medical care and all noninvasive treatment, he will remain intubated. The agree to take each day at the time, there also were that the patient also has renal dysfunction and that it appears to be rapidly deteriorating, it may be that he needs dialysis at some point to which they agree. Besides the above and medical treatment, they would not want any thing else done and are happy to talk to us to make further decisions if this is necessary. At this point, I have changed the patient from full code to do not resuscitate status. Total time spent with the patient's family 30 minutes Problems Discussed (1) Obesity hypoventilation syndrome:
[2021-10-07] MEDS: Heparin Sodium,Porcine 5,000 UNIT/ML VIAL 5200 UNIT IVPUSH (20:33)
[2021-10-07] MEDS: Atorvastatin Calcium 20 MG TABLET PO (21:04)
--- NOTE | 2021-10-07 22:19 | PC.NURSE ---
Naseem MCALLISTER spoke to pt's and children about pt's condition and prognosis. Decision was made by the and children to make pt a Do Not Resuscitate in the event of cariac arrest.
[2021-10-07 23:31] LABS: ABG Refer to POC result
[2021-10-07 23:48] LABS: Glucose, Whole Blood 181 mg/dL (60-115)
[2021-10-07 23:48] LABS: Glucose, Whole Blood 244 mg/dL (60-115)
[2021-10-08] VITALS (32 sets, daily range): BP systolic 102–159; BP diastolic 47–102; PULSE 55–68; RESP 14–23; TEMP 30–37.7; O2SAT 92–98; BMI 49.6
[2021-10-08] MEDS: propofoL 1,000 MG/100 ML VIAL 19.55 MG IVCONT (01:00)
[2021-10-08 01:44] LABS: Glucose, Whole Blood 209 mg/dL (60-115)
[2021-10-08] MEDS: Piperacillin Sodium/Tazobactam 3.375 GM in 0.9 % Sodium Chloride 50 ML IV ×4 (03:13→19:39)
[2021-10-08 03:43] LABS: Glucose, Whole Blood 166 mg/dL (60-115)
[2021-10-08] MEDS: Heparin Sodium,Porcine 5,000 UNIT/ML VIAL 5200 UNIT IVPUSH ×2 (04:47→12:29)
[2021-10-08] MEDS: propofoL 1,000 MG/100 ML VIAL 15.64 MG IVCONT ×3 (05:28→19:19)
[2021-10-08 05:29] LABS: Hematocrit 35.1 % (42.0-52.0); Hemoglobin 10.4 g/dl (14.0-18.0); Mean Corpuscular HGB Conc 29.6 g/dl (31.0-36.0); Mean Corpuscular Hemoglobin 26.7 pg (27.0-33.0); Mean Corpuscular Volume 90.2 fL (80.0-98.0); Platelet Count 250 X10*3/uL (160-400); Red Blood Count 3.89 X10*6/uL (4.60-5.80); Red Cell Distribution Width 13.5 % (11.0-16.0); White Blood Count 21.5 X10*3/uL (4.8-10.8)
[2021-10-08 05:30] LABS: VBG Base Excess -1.7 mmol/L; VBG HCO3 24 mmol/L (22-26); VBG pCO2 46 mmHg; VBG pH 7.32 (7.32-7.43); VBG pO2 49 mmHg
[2021-10-08 05:32] LABS: Glucose, Whole Blood 160 mg/dL (60-115)
[2021-10-08 05:36] LABS: INTERNATIONAL NORM RATIO 1.5 (0.9-1.1); Prothrombin Time 16.6 SEC (9.9-13.0)
--- NOTE | 2021-10-08 05:47 | PC.NURSE ---
Pt maintained on AC vent settings overnight. Good sedation effect from Propofol. Pt does not tolerate repositioning. O2 sats will drop to 70's, especially when repos on left side or when head of bed is down to flat or almost flat position. ARY Gusman was notified and portable CXR was done which showed nothing new from previous xray. Fio2 had been increased to 100% but later weaned to 70%. That being said, pt was repositioned minimally from side to side. Each time he would desat. Lungs remain clear. BP stable via eliz right upper arm. Levophed weaned down from .2 mcg to .12 mcg/kg/min. Vasopressin infusing as ordered at 0.04 units/min. Monitor shows junctional rhythm, rate 60's. ARY Gusman aware of rhythm. U/O 0-20 ml/hr. No changes related to low urine output. Cooling blanket on pt with a targeted temp of 96 degrees. Heparin drip infusing per protocol.
[2021-10-08 05:57] LABS: Vancomycin Random 19.2 mcg/mL (15-20)
[2021-10-08 05:59] LABS: Alanine Aminotransferase 1529 U/L (0-40); Albumin Level 3.2 g/dL (3.5-5.0); Alkaline Phosphatase 133 U/L (39-117); Anion Gap 19 (12-20); Aspartate Amino Transferase 2144 U/L (5-37); Bilirubin Total 0.6 mg/dL (0.0-1.0); Blood Urea Nitrogen 68 mg/dL (9-16); C Reactive Protein 23.48 mg/dL (< or = 0.50); Calcium 8.8 mg/dL (8.4-10.2); Carbon Dioxide 23 mmol/L (22-29); Chloride 106 mmol/L (96-108); Creatinine Clr Calc Pharmacy 23.7; Estimated Glomerular Filt Rate 16; Glucose Random 167 mg/dL (60-115); Magnesium 2.5 mg/dL (1.6-2.6); Phosphorus 4.3 mg/dL (2.7-4.5); Potassium 4.3 mmol/L (3.3-5.1); Sodium 144 mmol/L (135-145); Total Protein 6.9 g/dL (6.5-8.0)
[2021-10-08 06:07] LABS: Venous Blood Gas Refer to POC result
[2021-10-08] MEDS: Pantoprazole Sodium 40 MG/10 ML VIAL IVPUSH (06:17)
[2021-10-08] MEDS: Chlorhexidine Gluc Oral Rinse 15 ML MOUTHWASH BUCCAL ×3 (06:21→22:11)
[2021-10-08 07:25] LABS: Glucose, Whole Blood 148 mg/dL (60-115)
[2021-10-08] MEDS: Finasteride 5 MG TABLET PO (08:08)
[2021-10-08] MEDS: Aspirin Enteric Coated 81 MG TABLET.DR PO (08:09)
[2021-10-08] MEDS: Heparin Sodium,Porcine/1/2NS 25,000 UNIT/250 ML IV.SOLN 15.21 UNIT IVCONT (08:31)
--- NOTE | 2021-10-08 08:49 | PC.NURSE ---
Patient remains intubated and sedated. Entirely dependent on ventilator and vasopressor support. Labs show decline in kidney and lever functions today. updated via telephone conversation at 0830. Temp remains Low grade 99.6-99.4 Cooling blanket in use, but is above patient since 10/07/21 d/t poor tolerance with turning, desaturation profound. Meds and ABTx as ordered. Slight position changes, arms on pillows for pressure support. (+) cough to deep suction stim, no gag to oral suction stim. Pupils equal, responsive, 3mm each. See flowsheet for remaining assessment. PTT to be drawn at 11am Heparin per protocol. Insulin drip remains at 3units/hr. Blood sugar to be checked at 10am (q2hrs)
[2021-10-08 10:07] LABS: Glucose, Whole Blood 112 mg/dL (60-115)
[2021-10-08 11:30] LABS: ABG Base Excess -2.1 mmol/L; ABG HCO3 22 mmol/L (22-26); ABG pCO2 38 mmHg (32-45); ABG pCO2 TC 39 mmHg (32-45); ABG pH 7.37 (7.35-7.45); ABG pH TC 7.36 (7.35-7.45); ABG pO2 88 mmHg (83-108); ABG pO2 TC 91 (83-108)
[2021-10-08 12:00] LABS: PTT Heparin Drip 41.1 SEC (53-77.9)
[2021-10-08 12:02] LABS: Glucose, Whole Blood 114 mg/dL (60-115)
--- NOTE | 2021-10-08 13:30 | W.PM.CCHP ---
Procedures Date of Service Date of Service: 10/07/21 Central Line Placement Left IJ: Central Line Comments: PROCEDURE:? Insertion left internal jugular triple lumen central venous catheter. INDICATION:? Shock and respiratory failure, status post cardiac arrest. ANESTHESIA:? Local. PROCEDURE:? Vascular ultrasound was used to examine the left neck, left supraclavicular and left subclavian areas.? The only reasonably accessible vein looked like the low left internal jugular. The left neck was widely prepped and draped in full sterile fashion.? The low left internal jugular vein was located by ultrasound. ?Local anesthesia was applied to the needle insertion site.? The 18 gauge needle cannulated the vein under direct ultrasound guidance on the first pass.? There was easy aspiration of dark blood.? The wire was threaded without incident.? The 7Fr x 16cm triple lumen catheter was then inserted via Seldinger tech without incident.? There was good blood return x3.? The catheter was sutured x3 and a Biopatch and dry sterile dressing were applied. Postop chest x-ray showed the line in good position with no pneumothorax.? The patient tolerated the procedure well w no complications Consent for Procedure: Emergent-no informed consent obtained
[2021-10-08 13:37] LABS: ABG Refer to POC result
--- NOTE | 2021-10-08 13:40 | W.PM.CCHP ---
Procedures Date of Service Date of Service: 10/07/21 Arterial Line Arterial Line Comments: PROCEDURE:? Insertion right axillary arterial line. Indications:? Shock and acute respiratory failure. Anesthesia:? Local and propofol/fentanyl sedation. The right axillary artery was identified by ultrasound.? The axilla was then prepped and draped in full sterile fashion.? Local anesthesia was infiltrated.? The artery was cannulated under US guidance with the 20g thin wall and the wire advanced without incident.? The 20g x 12cm cannula was advanced over the wire via Seldinger technique and hooked up to pressure, with a good waveform.? The catheter was then sutured in place with 3-0 silk x 3.? A biopatch and dry sterile dressing were applied. The patient tolerated the procedure well with no complications. Consent: Emergent-no informed consent obtained
[2021-10-08 13:47] LABS: Vancomycin Random 18.3 mcg/mL (15-20)
[2021-10-08 14:10] LABS: Glucose, Whole Blood 125 mg/dL (60-115)
[2021-10-08 16:07] LABS: Glucose, Whole Blood 116 mg/dL (60-115)
[2021-10-08 17:57] LABS: Glucose, Whole Blood 119 mg/dL (60-115)
[2021-10-08 18:38] LABS: PTT Heparin Drip 59.9 SEC (53-77.9)
[2021-10-08] MEDS: Insulin Regular/NS 100 UNIT/100 ML PLAST..BAG IVCONT (19:24)
[2021-10-08] MEDS: Atorvastatin Calcium 20 MG TABLET PO (19:41)
[2021-10-08 20:04] LABS: Glucose, Whole Blood 105 mg/dL (60-115)
--- NOTE | 2021-10-08 21:47 | PM.CCPN ---
Subjective Subjective Date of Service: 10/08/21 Interval History: Mr. Matias was transferred to the ICU yesterday (10/07) after a cardiac arrest on the floor. The patient is a 66-year-old male, former smoker, quit 15 years ago, with underlying history of morbid obesity, possible COPD, definite OHS, supplemental oxygen dependent with CO2 retention, and diabetes mellitus.? He?s supposed to be on NIV at home, prescribed by Dr. Choi at [facility], but they haven?t been able to get his machine to work for him. [facility] a [facility] congestive heart [facility], but I have been unable to find evidence of that, other than the fact that his echo on September 27 shows some diastolic dysfunction.? Note that BNP levels in the [facility] records, both last year and this year, were normal. The patient lives at home with his .? Five adult children live upstairs.? According to the , the patient ambulates with a walker, but doesn?t get around much.? His mental status is usually fully normal.? He needs a little bit of help getting dressed, with pulling his socks or his pants on.? In regards to toileting, the patient uses a urinal or a commode.? The patient bathes with sponge baths.? In regards to mobility, it seems to me from what his says, that he often needs a bit of a hand getting out of bed or getting out of a chair.? But from what the nurses tell me and from my lengthy conversation with the patient's , I suspect that she was underestimating his disability. HISTORY OF PRESENT ILLNESS:? [place] [facility] [place] with altered mental status secondary to hypoglycemia.? He was also noted to be in congestive heart failure with significant compensated respiratory acidosis.? ABG on admission (on unstated FiO2) showed 7.41/91/75/+27.? The patient was admitted to medicine, diuresed, and given Diamox. On Sep 27, echo showed: ?- Mild LVH; normal LV size and systolic function, w EF 60-65%, no RWMAs, w abnormal diastolic function. ?- Normal RV cavity size and systolic function.? RVSP 22mm ?- Mod dilated LA. ?- Normal AV; no MR or MS; normal TV ?- Dilated IVC with > 50% insp collapse. The patient required transfer to the ICU early on Sep 28 [facility] of confusion, shortness of breath, and severe hypercarbia, requiring BiPAP.? In the ICU, he was continued on diuresis, Diamox, and BiPAP.? He was able to come off BiPAP onto 4-5 L NC oxygen for periods during the day.? By 10/03, he was negative 10 liters.? His BP on that day though dropped into the 70s-80s, so the diuretics were stopped.? Echo ([facility] of hypotension) showed: ?- Normal LV size and fxn. ?- RV maybe top normal ?- Tricuspid valve showed 1-2+ TR by color vargas, with CWD measuring 3.0 m/sec ?- IVC was dilated at 2.3 cm, with about 40% insp collapse.? Estimated CVP 12mm.? Estimated RVSP 48mm. The patient was started on midodrine.? Although the hypotension was felt to be secondary to relative hypovolemia, he was major-cultured just to be sure.? All cultures came back negative, altho sputum suggested bronchitis, so he was given a course of oral Zithromax.? He improved significantly over the next couple of days, he became more animated and more oriented and appropriate, and his PvCO2 came down to 63.? He was transferred to [facility] [place] on 10/05 and it was anticipated that he might be discharged to rehab on 10/07. A code blue was called 10/07 at 9am.? The patient was pulseless, rhythm was at first interpreted as pulseless Vtach, received 2 shocks, then appeared to be more PEA.? The patient was given CPR & ACLS and intubated.? Ultimately, was shocked twice for Vfib, and was given five rounds of epi and one bicarb before ROSC was obtained after 16 min of CPR.? Rhythm was afib with RVR, SBP around 130.? POC was about 180.? There was ?aspiration.? The patient was transferred down to the ICU. In ICU he was unresponsive, but making agonal spontaneous respiratory efforts.? Rhythm was Afib w RVR, and he was hypotensive.? Bedside echocardiogram showed probably normal LV function, with borderline RV size, with RV:LV cavity ratio approximately 1.0.? Continuous-wave Doppler jet measured 3.0 m/sec.? IVC measured 2.4 cm with no inspiratory collapse (on positive pressure ventilation).? Estimated RVSP 46mm. The patient was started on Levophed, a central venous line was placed, and the patient was started on amiodarone.? On that he broke into sinus rhythm.? We added esmolol to keep him in sinus rhythm.? The Levophed dose was up to 0.5ug and vasopressin was added.? An arterial line was placed, and he was started on broad-spectrum antibiotics. ?Labs showed the D-dimer was 46558.? BUN/creatinine were up to 59/3.2 (rom 53/2.7) troponin was 146, BNP 207, lactic acid was 2.4.? CXR was unremarkable.? Bilateral lower extremity duplex scan showed no DVT.? He was started on an insulin drip. The patient was cooled and started on heparin in case of a PE (he was too unstable to go to a scan) and because of the AFib. ?Eventually, the levophed dose came down.? Repeat troponin came back at 2533.? He was continued on aspirin and statin. Overnight, his vital signs improved, levophed dose came down further and his FiO2 improved.? Cooling efforts were unable to get his temp below 98?.? The esmolol was turned off this morning because of a stable, slow, sinus rhythm. ?This afternoon, after we turned the propofol off and stopped cooling him, he lightened up and became dysynchronous with the ventilator, but never opened his eyes or became interactive or responsive.? Temperature off the cooling blanket is about 97 degrees.? Heart rate came down to the 50s, sinus rhythm; the amiodarone drip was turned off.? Blood pressure is running about 120/55 on Levophed 0.1 mcg. ?On the vent set on AC 14/500/50%/+12, RR is 14, Ve 6.5L, PIP 31cm, ETCO2 28mm, Sat 96%.? Central venous blood gas showed 7.32/46/-1.? ABG later in the morning showed 7.37/38/88/-2.? There is no JVD.? Chest showed distant breath sounds, otherwise clear.? Regular rate and rhythm, with normal-sounding S1-S2 without murmurs or gallops.? The abdomen is benign.? He has 1+ peripheral edema. LABORATORY DATA this morning:? As below.? Notably, sodium is up to 144, BUN/creatinine to 68/3.7, potassium is 4.3, bicarb is 23, phosphorus is only 4.3.? On the insulin drip glucose is 167. ?LFTs show AST 2144, ALT of 1529, troponin this morning was 6386. MICROBIOLOGY:? Sputum Gram stain from 10/07 showed 2+ polys, 2+ epithelial cells, and 4+ Gram-positive cocci.? Culture?s pending.? Blood cultures from 10/07 negative so far. ?Urinalysis from yesterday showed WBC TNTC, with 2+ leukocyte esterase, 3+ urine bacteria.? Cx is in progress. IMPRESSION: 1. Former smoker.? He may have some COPD on that basis, but none of his CXRs or CT scans prove it. 2. Prev echo is c/w some diastolic dysfxn.? My echo 10/03, along with the right pleural effusion, and the fact that the patient became hypotensive with diuresis, and then his renal indices improved after stopping diuresis, all suggest underlying right heart failure, no surprise given his obesity and OHS/KATIE. 3. Underlying OHS with CO2 retention.? His pCO2 finally came down after rigorous nighttime BiPAP and high dose Diamox. 4. Underlying mild renal insufficiency.? May have cardiorenal syndrome (with the right heart failure). 5. S/P cardiac arrest yesterday.? Undetermined etiology.? PE would seem a definite possibility, but his BNP was only 207, even less significant given his elevated renal indices. ?Aspiration not likely, given the clear chest x-ray.? His troponins indicate significant myocardial ischemia, which raises the possibly of type 1 NSTEMI.? 6. Afib.? Resolved on the amiodarone.? He became bradycardic so the amiodarone is now off. 7. Acute respiratory failure.? Secondary to above. 8. Metabolic encephalopathy.? Secondary to cardiac arrest.? Hasn?t woken up yet. 9. PHYLICIA.? ATN 2? cardiac arrest.? Right now averaging about 20cc urine/hour.? The midrange potassium and phos may be bec he?s not being fed.? Surprising that he is not more acidotic. ?May very well progress to dialysis. 10. Diabetes mellitus.? Started on an insulin drip. 11. ID:? Started on antibiotics.? No positive cultures back yet. I had a long talk with the patient's by telephone yesterday.? We discussed what happened, what we are doing, his acute kidney injury, and what his prognosis is, both intermediate and long-term.? Clearly, he is facing a very burdensome intermediate and long-term future.? I asked her what she thought he would want.? The only thing she was able to say was that on admission, he told Dr. Ballard that if his brain was not working, he wouldn?t want to be kept alive. ? Last night, ARY Sheehan spoke with the patient's and it was decided to change his status to DNR. It?s not clear that she would want dialysis.? When I spoke with her, we left it that we?ll see how things go over the next 24-48 hours, and reconnect then.? I did not have a chance to speak with her today. Critical care time:? 70 min. Critical Care Time (minutes): 70 Physical Exam Vital Signs: Vital Signs: Last Vital Signs Temp 97.0 F 10/08/21 21:00 Pulse 59 10/08/21 21:00 Resp 14 10/08/21 21:00 BP 102/47 L 10/08/21 21:00 Pulse Ox 96 10/08/21 21:00 Oxygen Flow Rate 30 10/04/21 22:40 Body Mass Index 49.6 Objective Data Labs CBC & Chem 7: 10/08/21 05:14 10/08/21 05:14 Labs: Laboratory Results - last 24 hr 10/07/21 10/07/21 10/08/21 21:35 23:44 01:41 WBC RBC Hgb Hct MCV MCH MCHC RDW Plt Count MPV Absolute Nucleated RBC Nucleated RBC % (auto) PT INR PTT (Heparin Protocol) O2 Saturation ABG pH at Pt Temp ABG pH (Temp Correct) ABG pCO2 at Pt Temp ABG pCO2 (Temp Corrct ABG pO2 at Pt Temp ABG pO2 (Temp Correct ABG HCO3 ABG Base Excess (Actual) VBG pH VBG pCO2 VBG pO2 VBG HCO3 VBG O2 Saturation VBG Base Excess Sodium Potassium Chloride Carbon Dioxide Anion Gap BUN Creatinine Estim Creat Clear Calc Estimated GFR POC Glucose 244 H 181 H 209 H Random Glucose Calcium Phosphorus Magnesium Total Bilirubin AST ALT Alkaline Phosphatase Troponin I High Sens C-Reactive Protein Total Protein Albumin Random Vancomycin 10/08/21 10/08/21 10/08/21 02:48 03:39 05:14 WBC 21.5 H RBC 3.89 L Hgb 10.4 L Hct 35.1 L MCV 90.2 MCH 26.7 L MCHC 29.6 L RDW 13.5 Plt Count 250 MPV 12.0 Absolute Nucleated RBC 0.000 Nucleated RBC % (auto) 0.0 PT INR PTT (Heparin Protocol) 50.0 L O2 Saturation ABG pH at Pt Temp ABG pH (Temp Correct) ABG pCO2 at Pt Temp ABG pCO2 (Temp Corrct ABG pO2 at Pt Temp ABG pO2 (Temp Correct ABG HCO3 ABG Base Excess (Actual) VBG pH VBG pCO2 VBG pO2 VBG HCO3 VBG O2 Saturation VBG Base Excess Sodium Potassium Chloride Carbon Dioxide Anion Gap BUN Creatinine Estim Creat Clear Calc Estimated GFR POC Glucose 166 H Random Glucose Calcium Phosphorus Magnesium Total Bilirubin AST ALT Alkaline Phosphatase Troponin I High Sens C-Reactive Protein Total Protein Albumin Random Vancomycin 10/08/21 10/08/21 10/08/21 05:14 05:14 05:14 WBC RBC Hgb Hct MCV MCH MCHC RDW Plt Count MPV Absolute Nucleated RBC Nucleated RBC % (auto) PT 16.6 H INR 1.5 H PTT (Heparin Protocol) O2 Saturation ABG pH at Pt Temp ABG pH (Temp Correct) ABG pCO2 at Pt Temp ABG pCO2 (Temp Corrct ABG pO2 at Pt Temp ABG pO2 (Temp Correct ABG HCO3 ABG Base Excess (Actual) VBG pH VBG pCO2 VBG pO2 VBG HCO3 VBG O2 Saturation VBG Base Excess Sodium 144 Potassium 4.3 Chloride 106 Carbon Dioxide 23 Anion Gap 19 BUN 68 H Creatinine 3.79 H Estim Creat Clear Calc 23.7 Estimated GFR 16 POC Glucose Random Glucose 167 H D Calcium 8.8 Phosphorus 4.3 Magnesium 2.5 Total Bilirubin 0.6 AST 2144 H ALT 1529 H Alkaline Phosphatase 133 H Troponin I High Sens C-Reactive Protein 23.48 H Total Protein 6.9 Albumin 3.2 L Random Vancomycin 19.2 10/08/21 10/08/21 10/08/21 05:14 05:24 05:29 WBC RBC Hgb Hct MCV MCH MCHC RDW Plt Count MPV Absolute Nucleated RBC Nucleated RBC % (auto) PT INR PTT (Heparin Protocol) O2 Saturation ABG pH at Pt Temp ABG pH (Temp Correct) ABG pCO2 at Pt Temp ABG pCO2 (Temp Corrct ABG pO2 at Pt Temp ABG pO2 (Temp Correct ABG HCO3 ABG Base Excess (Actual) VBG pH 7.32 VBG pCO2 46 VBG pO2 49 VBG HCO3 24 VBG O2 Saturation 70.0 VBG Base Excess -1.7 Sodium Potassium Chloride Carbon Dioxide Anion Gap BUN Creatinine Estim Creat Clear Calc Estimated GFR POC Glucose 160 H Random Glucose Calcium Phosphorus Magnesium Total Bilirubin AST ALT Alkaline Phosphatase Troponin I High Sens 6386.0 H* D C-Reactive Protein Total Protein Albumin Random Vancomycin 10/08/21 10/08/21 10/08/21 07:22 10:03 11:13 WBC RBC Hgb Hct MCV MCH MCHC RDW Plt Count MPV Absolute Nucleated RBC Nucleated RBC % (auto) PT INR PTT (Heparin Protocol) 41.1 L O2 Saturation ABG pH at Pt Temp ABG pH (Temp Correct) ABG pCO2 at Pt Temp ABG pCO2 (Temp Corrct ABG pO2 at Pt Temp ABG pO2 (Temp Correct ABG HCO3 ABG Base Excess (Actual) VBG pH VBG pCO2 VBG pO2 VBG HCO3 VBG O2 Saturation VBG Base Excess Sodium Potassium Chloride Carbon Dioxide Anion Gap BUN Creatinine Estim Creat Clear Calc Estimated GFR POC Glucose 148 H 112 Random Glucose Calcium Phosphorus Magnesium Total Bilirubin AST ALT Alkaline Phosphatase Troponin I High Sens C-Reactive Protein Total Protein Albumin Random Vancomycin 10/08/21 10/08/21 10/08/21 11:22 12:00 12:55 WBC RBC Hgb Hct MCV MCH MCHC RDW Plt Count MPV Absolute Nucleated RBC Nucleated RBC % (auto) PT INR PTT (Heparin Protocol) O2 Saturation 95.0 ABG pH at Pt Temp 7.37 ABG pH (Temp Correct) 7.36 ABG pCO2 at Pt Temp 38 ABG pCO2 (Temp Corrct 39 ABG pO2 at Pt Temp 88 ABG pO2 (Temp Correct 91 ABG HCO3 22 ABG Base Excess (Actual) -2.1 VBG pH VBG pCO2 VBG pO2 VBG HCO3 VBG O2 Saturation VBG Base Excess Sodium Potassium Chloride Carbon Dioxide Anion Gap BUN Creatinine Estim Creat Clear Calc Estimated GFR POC Glucose 114 Random Glucose Calcium Phosphorus Magnesium Total Bilirubin AST ALT Alkaline Phosphatase Troponin I High Sens C-Reactive Protein Total Protein Albumin Random Vancomycin 18.3 10/08/21 10/08/21 10/08/21 14:07 16:03 17:54 WBC RBC Hgb Hct MCV MCH MCHC RDW Plt Count MPV Absolute Nucleated RBC Nucleated RBC % (auto) PT INR PTT (Heparin Protocol) O2 Saturation ABG pH at Pt Temp ABG pH (Temp Correct) ABG pCO2 at Pt Temp ABG pCO2 (Temp Corrct ABG pO2 at Pt Temp ABG pO2 (Temp Correct ABG HCO3 ABG Base Excess (Actual) VBG pH VBG pCO2 VBG pO2 VBG HCO3 VBG O2 Saturation VBG Base Excess Sodium Potassium Chloride Carbon Dioxide Anion Gap BUN Creatinine Estim Creat Clear Calc Estimated GFR POC Glucose 125 H 116 H 119 H Random Glucose Calcium Phosphorus Magnesium Total Bilirubin AST ALT Alkaline Phosphatase Troponin I High Sens C-Reactive Protein Total Protein Albumin Random Vancomycin 10/08/21 10/08/21 18:21 20:00 WBC RBC Hgb Hct MCV MCH MCHC RDW Plt Count MPV Absolute Nucleated RBC Nucleated RBC % (auto) PT INR PTT (Heparin Protocol) 59.9 D O2 Saturation ABG pH at Pt Temp ABG pH (Temp Correct) ABG pCO2 at Pt Temp ABG pCO2 (Temp Corrct ABG pO2 at Pt Temp ABG pO2 (Temp Correct ABG HCO3 ABG Base Excess (Actual) VBG pH VBG pCO2 VBG pO2 VBG HCO3 VBG O2 Saturation VBG Base Excess Sodium Potassium Chloride Carbon Dioxide Anion Gap BUN Creatinine Estim Creat Clear Calc Estimated GFR POC Glucose 105 Random Glucose Calcium Phosphorus Magnesium Total Bilirubin AST ALT Alkaline Phosphatase Troponin I High Sens C-Reactive Protein Total Protein Albumin Random Vancomycin Microbiology Microbiology Results: Microbiology 10/07/21 14:17 Blood - Venous Blood Culture - Preliminary No growth after 24 hours. 10/07/21 14:04 Blood - Venous Blood Culture - Preliminary No growth after 24 hours. 10/03/21 10:55 Blood - Venous Blood Culture - Final No growth after 5 days. 10/03/21 10:55 Blood - Venous Blood Culture - Final No growth after 5 days. 10/07/21 20:25 Sputum - Suctioned Gram Stain - Final 10/07/21 14:28 Urine Catheterized - Blanco Catheter Urine Culture - Preliminary Culture in progress. 10/04/21 14:05 Urine Catheterized - Blanco Catheter Urine Culture - Final Enterococcus faecalis Aerococcus urinae 10/04/21 09:30 Sputum - Expectorated Gram Stain - Final 10/04/21 09:30 Sputum - Expectorated Sputum Culture - Final 10/03/21 Unknown Urine Catheterized - Blanco Catheter Urine Culture - Final 10/03/21 20:23 Sputum - Expectorated Gram Stain - Final 10/03/21 20:23 Sputum - Expectorated Sputum Culture - Final 10/03/21 07:33 Sputum - Expectorated Gram Stain - Final 10/03/21 07:33 Sputum - Expectorated Sputum Culture - Final Quality Stroke Does the patient have a stroke diagnosis?: No VTE Prior VTE?: No VTE Risk Level:: Medical - moderate - high VTE Device Contraindication: Treatment Not Indicated VTE Drug Contraindication: Treatment Not Indicated Critical Care Time Critical Care Time (minutes): 60
[2021-10-08 22:15] LABS: Glucose, Whole Blood 81 mg/dL (60-115)
[2021-10-08 23:07] LABS: Glucose, Whole Blood 89 mg/dL (60-115)
[2021-10-08] MEDS: Heparin Sodium,Porcine/1/2NS 25,000 UNIT/250 ML IV.SOLN 17.81 UNIT IVCONT (23:18)
[2021-10-09] VITALS (19 sets, daily range): BP systolic 89–135; BP diastolic 38–62; PULSE 61–91; RESP 12–35; TEMP 32–37.3; O2SAT 93–100; BMI 50.8
[2021-10-09 00:17] LABS: Glucose, Whole Blood 108 mg/dL (60-115)
[2021-10-09] MEDS: propofoL 1,000 MG/100 ML VIAL 15.64 MG IVCONT ×2 (01:08→05:51)
[2021-10-09 01:10] LABS: PTT Heparin Drip 35.7 SEC (53-77.9)
--- NOTE | 2021-10-09 01:36 | PC.NURSE ---
Addendum entered by Emy De Souza RN 10/09/21 04:59: Pt remains on AC setting on vent, spO2 >95%. Sedated on propofol with good effect. BP stable on levo at 0.12 mcg/kg/min. Juctional/SR on tele rate 60s. Poc 100s, insulin gtt off at 0000, pt started on lantus and sliding scale. Excoriation noted to L buttocks, photo taken and placed in chart. Urine appears bloody, PA made aware, to continue heparin gtt. Original Note: 0130 ptt-hd 35.7, per protocol 80 unit/kg bolus to be administered and increase doserate by 4 units/kg/hr. Previous ptt-hd therapeutic at 59.9. ARY Gusman notified. Per PA not to give bolus, only increase doserate per protocol. Heparin gtt now running at 17.67 units/kg/hr, next ptt-hd at 0730.
[2021-10-09 02:19] LABS: Glucose, Whole Blood 128 mg/dL (60-115)
[2021-10-09] MEDS: Piperacillin Sodium/Tazobactam 3.375 GM in 0.9 % Sodium Chloride 50 ML IV ×2 (03:23→08:03)
[2021-10-09 05:23] LABS: Glucose, Whole Blood 125 mg/dL (60-115)
[2021-10-09 05:27] LABS: VBG Base Excess -6.8 mmol/L; VBG HCO3 19 mmol/L (22-26); VBG pCO2 40 mmHg; VBG pH 7.28 (7.32-7.43); VBG pO2 104 mmHg
[2021-10-09 05:46] LABS: Basophils Absolute Auto 0.1 X10*3/uL (0.0-0.2); Basophils Percent Auto 0.4 % (0-2); Eosinophils Absolute Auto 0.2 X10*3/uL (0.0-0.4); Eosinophils Percent Auto 0.9 % (0-4); Hematocrit 35.5 % (42.0-52.0); Hemoglobin 10.5 g/dl (14.0-18.0); Imm Gran Abs Auto 0.26 X10*3/uL (0.00-0.03); Lymphocytes Absolute Auto 0.8 X10*3/uL (1.2-4.9); Lymphocytes Percent Auto 2.8 % (20-40); MANUAL DIFF FLAG SCAN; Mean Corpuscular HGB Conc 29.6 g/dl (31.0-36.0); Mean Corpuscular Hemoglobin 26.5 pg (27.0-33.0); Mean Corpuscular Volume 89.6 fL (80.0-98.0); Mean Platelet Volume 11.8 fL (9.4-12.4); Monocytes Absolute Auto 1.5 X10*3/uL (0.1-1.2); Monocytes Percent Auto 5.6 % (2-11); Neutrophils Absolute Auto 23.6 x10*3/uL (2.0-8.3); Neutrophils Percent Auto 89.3 % (45-73); Platelet Count 254 X10*3/uL (160-400); Red Blood Count 3.96 X10*6/uL (4.60-5.80); Red Cell Distribution Width 13.8 % (11.0-16.0); SCAN SMEAR FLAG 1; White Blood Count 26.5 X10*3/uL (4.8-10.8)
[2021-10-09] MEDS: Chlorhexidine Gluc Oral Rinse 15 ML MOUTHWASH BUCCAL (05:51)
[2021-10-09] MEDS: Pantoprazole Sodium 40 MG/10 ML VIAL IVPUSH (05:51)
[2021-10-09 06:05] LABS: SLIDE REVIEW VERIFIED
[2021-10-09 06:20] LABS: Venous Blood Gas Refer to POC result
[2021-10-09 06:25] LABS: Alanine Aminotransferase 1185 U/L (0-40); Albumin Level 2.9 g/dL (3.5-5.0); Alkaline Phosphatase 141 U/L (39-117); Anion Gap 23 (12-20); Aspartate Amino Transferase 730 U/L (5-37); Bilirubin Total 0.7 mg/dL (0.0-1.0); Blood Urea Nitrogen 76 mg/dL (9-16); Carbon Dioxide 18 mmol/L (22-29); Chloride 107 mmol/L (96-108); Creatinine Clr Calc Pharmacy 22.7; Estimated Glomerular Filt Rate 15; Glucose Random 190 mg/dL (60-115); Phosphorus 6.3 mg/dL (2.7-4.5); Potassium 4.1 mmol/L (3.3-5.1); Sodium 144 mmol/L (135-145); Total Protein 5.5 g/dL (6.5-8.0)
[2021-10-09 06:37] LABS: Vancomycin Random 13.8 mcg/mL (15-20)
--- NOTE | 2021-10-09 06:58 | HE.PHANOTE ---
Vancomycin Addendem No dose given yesterday since level 24 hr after first dose was 18.3. Random level drawn today at 0516 was 13.8 . Patient's renal function is declining with SCR 4.04. Will give patient dose of 750 mg today. Patient should recieve Q48H dose. Another random level will be drawn tomorrow at 0500 to reassess patient's clearance. Pharmacy will follow daily Samantha Eddy PharmD
[2021-10-09 07:02] LABS: Glucose, Whole Blood 178 mg/dL (60-115)
[2021-10-09] MEDS: vancomycin HCL 750 MG in 0.9 % Sodium Chloride 250 ML 265 MG IV (07:17)
[2021-10-09] MEDS: 0.9 % Sodium Chloride Flush 3 ML SYRINGE IVFLUSH (07:18)
[2021-10-09] MEDS: Aspirin Enteric Coated 81 MG TABLET.DR PO (08:03)
[2021-10-09] MEDS: Finasteride 5 MG TABLET PO (08:03)
[2021-10-09] MEDS: Insulin Glargine,Hum.rec.anlog 100 UNIT/ML 10 ML VIAL 8 UNIT SUBCUT (09:18)
--- NOTE | 2021-10-09 09:25 | P.PNCC_ITS ---
Subjective Subjective Date of Service: 10/09/21 Critical Care Time (minutes): 80 Comment: . Mr. Matias was transferred to the ICU 10/07 after a cardiac arrest on the floor. The patient is a 66-year-old male, former smoker, quit 15 years ago, with underlying history of morbid obesity, possible COPD, definite OHS, supplemental oxygen dependent with CO2 retention, and diabetes mellitus.? He?s supposed to be on NIV at home, prescribed by Dr. Choi at [facility], but they haven?t been able to get his machine to work for him. His [facility] records list a history of congestive heart failure, but I have been unable to find evidence of that, other than the fact that his echo on September 27 shows some diastolic dysfunction.? Note that BNP levels in the [facility] records, both last year and this year, were normal. The patient lives at home with his Maryann ([phone]).? Five adult children live upstairs.? According to the , the patient ambulates with a walker, but doesn?t get around much.? His mental status is usually fully normal.? He needs a little bit of help getting dressed, with pulling his socks or his pants on.? In regards to toileting, the patient uses a urinal or a commode.? The patient bathes with sponge baths.? In regards to mobility, it seems to me from what his says, that he often needs a bit of a hand getting out of bed or getting out of a chair.? But from what the nurses tell me and from my lengthy conversation with the patient's , I suspect that she was underestimating his disability. HISTORY OF PRESENT ILLNESS:? The patient was admitted to [facility] on 09/25/2021 with altered mental status secondary to hypoglycemia.? He was also noted to be in congestive heart failure with significant compensated respiratory acidosis.? ABG on admission (on unstated FiO2) showed 7.41/91/75/+27.? The patient was admitted to medicine, diuresed, and given Diamox. On Sep 27, echo showed: ?- Mild LVH; normal LV size and systolic function, w EF 60-65%, no RWMAs, w abnormal diastolic function. ?- Normal RV cavity size and systolic function.? RVSP 22mm ?- Mod dilated LA. ?- Normal AV; no MR or MS; normal TV ?- Dilated IVC with > 50% insp collapse. The patient required transfer to the ICU early on Sep 28 [facility] of confusion, shortness of breath, and severe hypercarbia, requiring BiPAP.? In the ICU, he was continued on diuresis, Diamox, and BiPAP.? He was able to come off BiPAP onto 4-5 L NC oxygen for periods during the day.? By 10/03, he was negative 10 liters.? His BP on that day though dropped into the 70s-80s, so the diuretics were stopped.? Echo ([facility] of hypotension) showed: ?- Normal LV size and fxn. ?- RV maybe top normal ?- Tricuspid valve showed 1-2+ TR by color vargas, with CWD measuring 3.0 m/sec ?- IVC was dilated at 2.3 cm, with about 40% insp collapse.? Estimated CVP 1 2mm.? Estimated RVSP 48mm. The patient was started on midodrine.? Although the hypotension was felt to be secondary to relative hypovolemia, he was major-cultured just to be sure.? All cultures came back negative, altho sputum suggested bronchitis, so he was given a course of oral Zithromax.? He improved significantly over the next couple of days, he became more animated and more oriented and appropriate, and his PvCO2 came down to 63.? He was [place] [facility] [place]05 and it was anticipated that he might be discharged to rehab on 10/07. A code blue was called 10/07 at 9am.? The patient was pulseless, rhythm was at first interpreted as pulseless Vtach, received 2 shocks, then appeared to be more PEA.? The patient was given CPR & ACLS and intubated.? Ultimately, was shocked twice for Vfib, and was given five rounds of epi and one bicarb before ROSC was obtained after 16 min of CPR.? Rhythm was afib with RVR, SBP around 130.? POC was about 180.? There was ?aspiration.? The patient was transferred down to the ICU. In ICU he was unresponsive, but making agonal spontaneous respiratory efforts.? Rhythm was Afib w RVR, and he was hypotensive.? Bedside echocardiogram showed probably normal LV function, with borderline RV size, with RV:LV cavity ratio approximately 1.0.? Continuous-wave Doppler jet measured 3.0 m/sec.? IVC measured 2.4 cm with no inspiratory collapse (on positive pressure ventilation).? Estimated RVSP 46mm. The patient was started on Levophed, a central venous line was placed, and the patient was started on amiodarone.? He broke into sinus rhythm.? We added esmolol to keep him in sinus rhythm.? The Levophed dose was up to 0.5ug and vasopressin was added.? An arterial line was placed, and he was started on broad-spectrum antibiotics. ?Labs showed the D-dimer was 22362.? BUN/creatinine were up to 59/3.2 (from 53/2.7), troponin was 146, BNP 207, lactic acid was 2.4.? CXR was unremarkable.? Bilateral lower extremity duplex scan showed no DVT.? He was started on an insulin drip. The patient was cooled and started on heparin in case of a PE (he was too unstable to go to a scan) and because of the AFib.? Eventually, the levophed dose came down.? Repeat troponin came back at 2533.? He was continued on aspirin and statin. Over that night, his vital signs improved, levophed dose came down further and his FiO2 improved.? Cooling efforts were unable to get his temp below 98?.? The esmolol was turned off because of a stable, slow, sinus rhythm.? Yesterday afternoon (Oct 08), after we turned the propofol off and stopped cooling him, he lightened up and became dysynchronous with the ventilator, but never opened his eyes or became interactive or responsive.? We had to turn the propofol back on.? His overnight course last night was uneventful, except that the insulin drip came off this morning because of progressively lower glucose levels. This morning, with the propofol off for over an hour, he remained completely unresponsive except for a minimal grimace to deep pain.? No eye opening.? PERR, about 5mm.? HR 70, SR.? BP 105/47 on Levophed 0.12ug.? On AC 12/500/30%/+8, RR was 19, Ve 9.7L, PiP 32, ETCO2 26, Sat 94%.? This morning?s CVBG showed 7.28/40/-6.? Temp 98?.? There is no JVD.? Chest is CTA, with normal exp phase.? Regular rate and rhythm, with normal-sounding S1-S2 without murmurs or gallops.? The abdomen is benign.? He has 1+ peripheral edema. LABORATORY DATA:? As below.? Notably, WBC is up further, BUN/creatinine up to 76/4.0, bicarb is down to 18, phosphorus is up to 6.3, transaminases are down. MICROBIOLOGY:? Sputum Gram stain from 10/07 showed mixed michael.? Urine culture grew mixed michael. ?Blood cultures from 10/07 negative so far. IMPRESSION: 1. Former smoker.? He may have some COPD on that basis, but none of his CXRs or CT scans prove it. 2. Prev echo is c/w some diastolic dysfxn.? My echo 10/03, along with the right pleural effusion, and the fact that the patient became hypotensive with diu resis, and then his renal indices improved after stopping diuresis, all suggest underlying right heart failure, no surprise given his obesity and OHS/KATIE. 3. Underlying OHS with CO2 retention.? His pCO2 finally came down after rigorous nighttime BiPAP and high dose Diamox. 4. Underlying mild renal insufficiency.? May have cardiorenal syndrome (with the right heart failure). 5. S/P cardiac arrest on Oct 07.? Undetermined etiology.? PE would seem a definite possibility, but his BNP was only 207, even less significant given his elevated renal indices. ?Aspiration not likely, given the clear chest x-ray.? His troponins indicate significant myocardial ischemia, which raises the possibly of type 1 NSTEMI, altho not shown on the EKG or echo. 6. Afib.? Resolved on the amiodarone.? He became bradycardic so the amiodarone is now off. 7. Acute respiratory failure.? Secondary to above. 8. Metabolic encephalopathy.? Secondary to cardiac arrest.? Hasn?t woken up yet. 9. PHYLICIA.? ATN 2? cardiac arrest.? Expect him to progress to dialysis. 10. Diabetes mellitus.? Lower glucose levels may be 2? hepatic necrosis. 11. ID:? Started on antibiotics.? All cultures negative so far.? Will D/C abx. I had a long talk with the patient's by telephone after the patient was brought down to the ICU. ?She was clearly inclined to put a limit on how far we would go.? She spoke with ARY Sheehan that evening and she decided on DNR status at that point. I spoke with the patient's again this morning in regards to the patient's lack of any emergence from coma.? I told her that classically decisions are made after the 3rd day, but at this point, it did not look good. ?She decided that she did not want to wait until tomorrow. ?She decided to bring the family in an withdrawal critical care management today. The patient's came in about noon today, along with her children.? I spoke with them at some length, and answered all their questions.? They decided on comfort measure status.? The drips were turned off and the patient was extubated to room air with the family present.? He was breathing comfortably.? He about an hour later, at 1349. Critical care time:? 80+ min. Physical Exam Vital Signs: Vital Signs: Last Vital Signs Temp 98.8 F 10/09/21 09:00 Pulse 70 10/09/21 09:00 Resp 15 10/09/21 09:00 BP 105/47 L 10/09/21 09:00 Pulse Ox 94 10/09/21 09:00 Oxygen Flow Rate 30 10/04/21 22:40 Body Mass Index 50.8 Objective Data Labs CBC & Chem 7: 10/09/21 05:16 10/09/21 05:16 Labs: Laboratory Results - last 24 hr 10/08/21 10/08/21 10/08/21 10:03 11:13 11:22 WBC RBC Hgb Hct MCV MCH MCHC RDW Plt Count MPV Immature Gran % (Auto) Neut % (Auto) Lymph % (Auto) Mcdowell % (Auto) Eos % (Auto) Baso % (Auto) Lymph # (Auto) Mcdowell # (Auto) Eos # (Auto) Baso # (Auto) Abs Immat Gran (auto) Absolute Neuts (auto) Absolute Nucleated RBC Nucleated RBC % (auto) Smear Tech's Comments PTT (Heparin Protocol) 41.1 L O2 Saturation 95.0 ABG pH at Pt Temp 7.37 ABG pH (Temp Correct) 7.36 ABG pCO2 at Pt Temp 38 ABG pCO2 (Temp Corrct 39 ABG pO2 at Pt Temp 88 ABG pO2 (Temp Correct 91 ABG HCO3 22 ABG Base Excess (Actual) -2.1 VBG pH VBG pCO2 VBG pO2 VBG HCO3 VBG O2 Saturation VBG Base Excess Sodium Potassium Chloride Carbon Dioxide Anion Gap BUN Creatinine Estim Creat Clear Calc Estimated GFR POC Glucose 112 Random Glucose Calcium Phosphorus Total Bilirubin AST ALT Alkaline Phosphatase Total Protein Albumin Random Vancomycin 10/08/21 10/08/21 10/08/21 12:00 12:55 14:07 WBC RBC Hgb Hct MCV MCH MCHC RDW Plt Count MPV Immature Gran % (Auto) Neut % (Auto) Lymph % (Auto) Mcdowell % (Auto) Eos % (Auto) Baso % (Auto) Lymph # (Auto) Mcdowell # (Auto) Eos # (Auto) Baso # (Auto) Abs Immat Gran (auto) Absolute Neuts (auto) Absolute Nucleated RBC Nucleated RBC % (auto) Smear Tech's Comments PTT (Heparin Protocol) O2 Saturation ABG pH at Pt Temp ABG pH (Temp Correct) ABG pCO2 at Pt Temp ABG pCO2 (Temp Corrct ABG pO2 at Pt Temp ABG pO2 (Temp Correct ABG HCO3 ABG Base Excess (Actual) VBG pH VBG pCO2 VBG pO2 VBG HCO3 VBG O2 Saturation VBG Base Excess Sodium Potassium Chloride Carbon Dioxide Anion Gap BUN Creatinine Estim Creat Clear Calc Estimated GFR POC Glucose 114 125 H Random Glucose Calcium Phosphorus Total Bilirubin AST ALT Alkaline Phosphatase Total Protein Albumin Random Vancomycin 18.3 10/08/21 10/08/21 10/08/21 16:03 17:54 18:21 WBC RBC Hgb Hct MCV MCH MCHC RDW Plt Count MPV Immature Gran % (Auto) Neut % (Auto) Lymph % (Auto) Mcdowell % (Auto) Eos % (Auto) Baso % (Auto) Lymph # (Auto) Mcdowell # (Auto) Eos # (Auto) Baso # (Auto) Abs Immat Gran (auto) Absolute Neuts (auto) Absolute Nucleated RBC Nucleated RBC % (auto) Smear Tech's Comments PTT (Heparin Protocol) 59.9 D O2 Saturation ABG pH at Pt Temp ABG pH (Temp Correct) ABG pCO2 at Pt Temp ABG pCO2 (Temp Corrct ABG pO2 at Pt Temp ABG pO2 (Temp Correct ABG HCO3 ABG Base Excess (Actual) VBG pH VBG pCO2 VBG pO2 VBG HCO3 VBG O2 Saturation VBG Base Excess Sodium Potassium Chloride Carbon Dioxide Anion Gap BUN Creatinine Estim Creat Clear Calc Estimated GFR POC Glucose 116 H 119 H Random Glucose Calcium Phosphorus Total Bilirubin AST ALT Alkaline Phosphatase Total Protein Albumin Random Vancomycin 10/08/21 10/08/21 10/08/21 20:00 22:12 23:04 WBC RBC Hgb Hct MCV MCH MCHC RDW Plt Count MPV Immature Gran % (Auto) Neut % (Auto) Lymph % (Auto) Mcdowell % (Auto) Eos % (Auto) Baso % (Auto) Lymph # (Auto) Mcdowell # (Auto) Eos # (Auto) Baso # (Auto) Abs Immat Gran (auto) Absolute Neuts (auto) Absolute Nucleated RBC Nucleated RBC % (auto) Smear Tech's Comments PTT (Heparin Protocol) O2 Saturation ABG pH at Pt Temp ABG pH (Temp Correct) ABG pCO2 at Pt Temp ABG pCO2 (Temp Corrct ABG pO2 at Pt Temp ABG pO2 (Temp Correct ABG HCO3 ABG Base Excess (Actual) VBG pH VBG pCO2 VBG pO2 VBG HCO3 VBG O2 Saturation VBG Base Excess Sodium Potassium Chloride Carbon Dioxide Anion Gap BUN Creatinine Estim Creat Clear Calc Estimated GFR POC Glucose 105 81 89 Random Glucose Calcium Phosphorus Total Bilirubin AST ALT Alkaline Phosphatase Total Protein Albumin Random Vancomycin 10/09/21 10/09/21 10/09/21 00:14 00:48 02:15 WBC RBC Hgb Hct MCV MCH MCHC RDW Plt Count MPV Immature Gran % (Auto) Neut % (Auto) Lymph % (Auto) Mcdowell % (Auto) Eos % (Auto) Baso % (Auto) Lymph # (Auto) Mcdowell # (Auto) Eos # (Auto) Baso # (Auto) Abs Immat Gran (auto) Absolute Neuts (auto) Absolute Nucleated RBC Nucleated RBC % (auto) Smear Tech's Comments PTT (Heparin Protocol) 35.7 L D O2 Saturation ABG pH at Pt Temp ABG pH (Temp Correct) ABG pCO2 at Pt Temp ABG pCO2 (Temp Corrct ABG pO2 at Pt Temp ABG pO2 (Temp Correct ABG HCO3 ABG Base Excess (Actual) VBG pH VBG pCO2 VBG pO2 VBG HCO3 VBG O2 Saturation VBG Base Excess Sodium Potassium Chloride Carbon Dioxide Anion Gap BUN Creatinine Estim Creat Clear Calc Estimated GFR POC Glucose 108 128 H Random Glucose Calcium Phosphorus Total Bilirubin AST ALT Alkaline Phosphatase Total Protein Albumin Random Vancomycin 10/09/21 10/09/21 10/09/21 05:16 05:16 05:16 WBC 26.5 H RBC 3.96 L Hgb 10.5 L Hct 35.5 L MCV 89.6 MCH 26.5 L MCHC 29.6 L RDW 13.8 Plt Count 254 MPV 11.8 Immature Gran % (Auto) 1.0 H Neut % (Auto) 89.3 H Lymph % (Auto) 2.8 L Mcdowell % (Auto) 5.6 Eos % (Auto) 0.9 Baso % (Auto) 0.4 Lymph # (Auto) 0.8 L Mcdowell # (Auto) 1.5 H Eos # (Auto) 0.2 Baso # (Auto) 0.1 Abs Immat Gran (auto) 0.26 H Absolute Neuts (auto) 23.6 H Absolute Nucleated RBC 0.000 Nucleated RBC % (auto) 0.0 Smear Tech's Comments VERIFIED PTT (Heparin Protocol) O2 Saturation ABG pH at Pt Temp ABG pH (Temp Correct) ABG pCO2 at Pt Temp ABG pCO2 (Temp Corrct ABG pO2 at Pt Temp ABG pO2 (Temp Correct ABG HCO3 ABG Base Excess (Actual) VBG pH VBG pCO2 VBG pO2 VBG HCO3 VBG O2 Saturation VBG Base Excess Sodium 144 Potassium 4.1 Chloride 107 Carbon Dioxide 18 L Anion Gap 23 H BUN 76 H Creatinine 4.04 H* Estim Creat Clear Calc 22.7 Estimated GFR 15 POC Glucose Random Glucose 190 H Calcium 8.0 L D Phosphorus 6.3 H Total Bilirubin 0.7 AST 730 H ALT 1185 H Alkaline Phosphatase 141 H Total Protein 5.5 L D Albumin 2.9 L Random Vancomycin 13.8 L 10/09/21 10/09/21 10/09/21 05:19 05:21 06:59 WBC RBC Hgb Hct MCV MCH MCHC RDW Plt Count MPV Immature Gran % (Auto) Neut % (Auto) Lymph % (Auto) Mcdowell % (Auto) Eos % (Auto) Baso % (Auto) Lymph # (Auto) Mcdowell # (Auto) Eos # (Auto) Baso # (Auto) Abs Immat Gran (auto) Absolute Neuts (auto) Absolute Nucleated RBC Nucleated RBC % (auto) Smear Tech's Comments PTT (Heparin Protocol) O2 Saturation ABG pH at Pt Temp ABG pH (Temp Correct) ABG pCO2 at Pt Temp ABG pCO2 (Temp Corrct ABG pO2 at Pt Temp ABG pO2 (Temp Correct ABG HCO3 ABG Base Excess (Actual) VBG pH 7.28 L VBG pCO2 40 VBG pO2 104 VBG HCO3 19 L VBG O2 Saturation 96.0 VBG Base Excess -6.8 Sodium Potassium Chloride Carbon Dioxide Anion Gap BUN Creatinine Estim Creat Clear Calc Estimated GFR POC Glucose 125 H 178 H Random Glucose Calcium Phosphorus Total Bilirubin AST ALT Alkaline Phosphatase Total Protein Albumin Random Vancomycin 10/09/21 07:26 WBC RBC Hgb Hct MCV MCH MCHC RDW Plt Count MPV Immature Gran % (Auto) Neut % (Auto) Lymph % (Auto) Mcdowell % (Auto) Eos % (Auto) Baso % (Auto) Lymph # (Auto) Mcdowell # (Auto) Eos # (Auto) Baso # (Auto) Abs Immat Gran (auto) Absolute Neuts (auto) Absolute Nucleated RBC Nucleated RBC % (auto) Smear Tech's Comments PTT (Heparin Protocol) 80.0 H D O2 Saturation ABG pH at Pt Temp ABG pH (Temp Correct) ABG pCO2 at Pt Temp ABG pCO2 (Temp Corrct ABG pO2 at Pt Temp ABG pO2 (Temp Correct ABG HCO3 ABG Base Excess (Actual) VBG pH VBG pCO2 VBG pO2 VBG HCO3 VBG O2 Saturation VBG Base Excess Sodium Potassium Chloride Carbon Dioxide Anion Gap BUN Creatinine Estim Creat Clear Calc Estimated GFR POC Glucose Random Glucose Calcium Phosphorus Total Bilirubin AST ALT Alkaline Phosphatase Total Protein Albumin Random Vancomycin Microbiology Microbiology Results: Microbiology 10/07/21 14:28 Urine Catheterized - Blanco Catheter Urine Culture - Final 10/07/21 14:17 Blood - Venous Blood Culture - Preliminary No growth after 24 hours. 10/07/21 14:04 Blood - Venous Blood Culture - Preliminary No growth after 24 hours. 10/03/21 10:55 Blood - Venous Blood Culture - Final No growth after 5 days. 10/03/21 10:55 Blood - Venous Blood Culture - Final No growth after 5 days. 10/07/21 20:25 Sputum - Suctioned Gram Stain - Final 10/04/21 14:05 Urine Catheterized - Blanco Catheter Urine Culture - Final Enterococcus faecalis Aerococcus urinae 10/04/21 09:30 Sputum - Expectorated Gram Stain - Final 10/04/21 09:30 Sputum - Expectorated Sputum Culture - Final 10/03/21 Unknown Urine Catheterized - Blanco Catheter Urine Culture - Final 10/03/21 20:23 Sputum - Expectorated Gram Stain - Final 10/03/21 20:23 Sputum - Expectorated Sputum Culture - Final 10/03/21 07:33 Sputum - Expectorated Gram Stain - Final 10/03/21 07:33 Sputum - Expectorated Sputum Culture - Final Quality Stroke Does the patient have a stroke diagnosis?: No VTE Prior VTE?: No VTE Risk Level:: Medical - moderate - high VTE Device Contraindication: Treatment Not Indicated VTE Drug Contraindication: Treatment Not Indicated Critical Care Time Critical Care Time (minutes): 90
--- NOTE | 2021-10-09 11:16 | PC.NURSE ---
Addendum entered by Vee Neely RN 10/09/21 14:37: Patient at 1349. Family at bedside during . NEDS notifed. Case denied. Addendum entered by Vee Neely RN 10/09/21 12:39: Patient madeCMO. Family at bedside. Patient started on Fentanyl drip for comfort. Extubated at 12:35. Original Note: Remains intubated at this time. Propofol stopped this AM per MD. Vent settings changed to PSV 20 titrated down to 18. Per MD, will visit today and withdraw treatment. ABTx given this morning have been D/C'd. Other scheduled meds as ordered this AM. Levophed started at 0.12mcg/kg/min Per MD, rate decreased to 0.06mcg/kg/min. BP down to 80s systolic. MD aware. Heparin drip D/C'd. Skin care provided after BM this morning. Blanco draining concentrated, cloudy urine. Old blood noted at times. average output 15mL/hr. Restraints remain on bilaterally at the wrists until extubated today.
[2021-10-09] MEDS: fentaNYL citrate/NS 1,000 MCG/100 ML PLAST..BAG 2.5 MCG IVCONT (12:29)
--- NOTE | 2021-10-09 20:01 | PM.DDS ---
Discharge Sum: Prov Provider Primary care physician: Scottie Hill MD Consults: 09/25/21 15:21 Consult to Pulmonology Routine Consulting Provider: Brad Loredo Reason for consultation: copd, repiratory acidosis (with metabolic alkalosis), KATIE not toleratingNIV 10/03/21 15:26 Consult to Nephrology Routine Consulting Provider: Gen Hendrix Reason for consultation: Needs diuresis; ? cardiorenal syndrome. Has provider been notified: Yes Discharge Sum: Diag Contributing Factors (1) Obesity hypoventilation syndrome: Discharge Sum: Summary Date and Time Date of admission: 09/25/21 15:38 Date of : 10/09/21 Time of : 13:49 Summary Details: . ? NOTE DISCHARGE DIAGNOSES: 1. Previous tobacco abuse. 2. Diastolic heart failure. 3. Morbid obesity. 4. Obesity hypoventilation syndrome with CO2 retention. 5. Chronic hypercapnia respiratory failure. 6. ?Chronic hypoxemic respiratory failure. 7. Right heart failure. 8. Chronic renal insufficiency. 9. PHYLICIA. 10. Status post cardiac arrest on October 07. 11. NSTEMI 12. Atrial fibrillation w RVR. 13. Acute respiratory failure. 14. Anoxic/metabolic encephalopathy 2? to cardiac arrest. 15. Shock liver. 16. Diabetes mellitus. Mr. Matias was admitted to [facility] on 09/25/2021 with altered mental status secondary to hypoglycemia. The patient is a 66-year-old male, former smoker, quit 15 years ago, with underlying history of morbid obesity, possible COPD, definite OHS, supplemental oxygen dependent with CO2 retention, CHF, and diabetes mellitus.? He was supposed to be on NIV at home, prescribed by Dr. Choi at [facility], but they hadn?t been able to get his machine to work for him. The patient lived at home with his Maryann ([phone]).? According to the , the patient ambulated with a walker, but didn?t get around much.? His mental status was usually fully normal.? In regards to toileting, the patient used a urinal or a commode.? The patient bathed with sponge baths.? In regards to mobility, the patient needed at least a moderate amount of help. HISTORY OF PRESENT ILLNESS:? The patient was admitted to [facility] on 09/25/2021 with altered mental status secondary to hypoglycemia.? He was also noted to be in congestive heart failure with significant compensated respiratory acidosis.? ABG on admission (on unstated FiO2) showed 7.41/91/75/+27.? The patient was admitted to medicine, diuresed, and given Diamox. On Sep 27, echo showed: ?- Mild LVH; normal LV size and systolic function, w EF 60-65%, no RWMAs, w abnormal diastolic function. ?- Normal RV cavity size and systolic function.? RVSP 22mm ?- Mod dilated LA. ?- Normal AV; no MR or MS; normal TV ?- Dilated IVC with > 50% insp collapse. The patient required transfer to the ICU early on Sep 28 bec of confusion, shortness of breath, and severe hypercarbia, requiring BiPAP.? In the ICU, he was continued on diuresis, Diamox, and BiPAP.? He was able to come off BiPAP onto 4-5 L NC oxygen for periods during the day.? By 10/03, he was negative 10 liters.? His BP on that day though dropped into the 70s-80s, so the diuretics were stopped.? Echo (bec of hypotension) showed: ?- Normal LV size and fxn. ?- RV maybe top normal ?- Tricuspid valve showed 1-2+ TR by color vargas, with CWD measuring 3.0 m/sec ?- IVC was dilated at 2.3 cm, with about 40% insp collapse.? Estimated CVP 12mm.? Estimated RVSP 48mm. The patient was started on midodrine.? Although the hypotension was felt to be secondary to relative hypovolemia, he was major-cultured just to be sure.? All cultures came back negative, altho sputum suggested bronchitis, so he was given a course of oral Zithromax.? He improved significantly over the next couple of days, he became more animated and more oriented and appropriate, and his PvCO2 came down to 63.? He was transferred to [facility] on 10/05 and it was anticipated that he might be discharged to rehab on 10/07. A code rolanda was called 10/07 at 9am.? The patient was pulseless, rhythm was at first interpreted as pulseless Vtach, received 2 shocks, then appeared to be more PEA.? The patient was given CPR & ACLS and intubated.? Ultimately, was shocked twice for Vfib, and was given five rounds of epi and one bicarb before ROSC was obtained after 16 min of CPR.? Rhythm was afib with RVR, SBP around 130.? POC was about 180.? There was ?aspiration.? The patient was transferred down to the ICU. In ICU he was unresponsive, but making agonal spontaneous respiratory efforts.? Rhythm was Afib w RVR, and he was hypotensive.? Bedside echocardiogram showed probably normal LV function, with borderline RV size, with RV:LV cavity ratio approximately 1.0.? Continuous-wave Doppler jet measured 3.0 m/sec.? IVC measured 2.4 cm with no inspiratory collapse (on positive pressure ventilation).? Estimated RVSP 46mm. The patient was started on Levophed, a central venous line was placed, and the patient was started on amiodarone.? He broke into sinus rhythm.? Esmolol was added.? The Levophed dose was up to 0.5ug and vasopressin was added.? An arterial line was placed, and he was started on broad-spectrum antibiotics. ?Labs showed the D-dimer was 35389.? BUN/creatinine were up to 59/3.2 (from 53/2.7), troponin was 146, BNP 207, lactic acid was 2.4.? CXR was unremarkable.? Bilateral lower extremity duplex scan showed no DVT.? He was started on an insulin drip. The patient was cooled and started on heparin in case of a PE (he was too unstable to go to a scan) and because of the AFib.? Eventually, the levophed dose came down.? Repeat troponin came back at 2533.? He was continued on aspirin and statin. Over that night, his vital signs improved, levophed dose came down further and his FiO2 improved.? Cooling efforts were unable to get his temp below 98?.? The esmolol was turned off because of a stable, slow, sinus rhythm.? The next day, after we turned the propofol off and stopped cooling him, he lightened up and became dysynchronous with the ventilator, but never opened his eyes or became interactive or responsive.? The propofol was turned back on.? His renal indices worsened, and his LFTs showed shock liver. ?His subsequent overnight course was uneventful, except that the insulin drip came off because of progressively lower glucose levels. The next morning, with the propofol off, he remained completely unresponsive except for a minimal grimace to deep pain.? No eye opening.? HR 70, SR.? BP 105/47 on Levophed 0.12ug.? On AC 12/500/30%/+8, RR was 19, Ve 9.7L, PiP 32, ETCO2 26, Sat 94%.? CVBG showed 7.28/40/-6.? Temp was 98?.? There is no JVD.? Chest was CTA, with normal exp phase.? He had 1+ peripheral edema. BUN/creatinine were up to 76/4.0, bicarb was down to 18, phosphorus was up to 6.3.? Cultures were all negative. We held mult discussions with the patient's by telephone after the patient was brought down to the ICU. ?She was clearly inclined to put a limit on how far we would go.? She decided on DNR status. On the 2nd day, with the patient making no progress on emerging from coma, she decided on comfort measures.? The patient's came in with her children.? We spoke with them at some length, and answered all their questions.? They decided on comfort measure status.? The drips were turned off and the patient was extubated to room air with the family present.? He was breathing comfortably.? He about an hour later, at 1349 on 10/09/21. Additional Data Attending physician: Gary Terrazas MD
== END 2021-10-09 13:49 | disposition expired | DRG 208 ==
LOC: HO.ED 10:59 → HO.EDOVER 15:44 → HO.IMC 09-26 06:59 → HO.ICU 09-28 04:38 → HO.IMC 10-05 15:23 → HO.ICU 10-07 09:48
PROVIDERS: Internal Medicine; Internal Medicine Pulmonary Disease; Physician Assistant Medical; Registered Nurse Community Health; Admitting Provider Internal Medicine; Emergency Provider Emergency Medicine; PCP Internal Medicine; Visit Provider Anesthesiology
DX: J96.22 Acute and chronic respiratory failure with hypercapnia (principal); I50.33 Acute on chronic diastolic (congestive) heart failure; R40.20 Unspecified coma; N17.0 Acute kidney failure with tubular necrosis; Z68.43 Body mass index [BMI] 50.0-59.9, adult; E66.2 Morbid (severe) obesity with alveolar hypoventilation; E87.4 Mixed disorder of acid-base balance; E87.0 Hyperosmolality and hypernatremia; G93.1 Anoxic brain damage, not elsewhere classified; E11.649 Type 2 diabetes mellitus with hypoglycemia without coma; J96.21 Acute and chronic respiratory failure with hypoxia; N40.0 Benign prostatic hyperplasia without lower urinary tract symptoms; I11.0 Hypertensive heart disease with heart failure; I48.91 Unspecified atrial fibrillation; I46.9 Cardiac arrest, cause unspecified; Z88.0 Allergy status to penicillin; Z99.81 Dependence on supplemental oxygen; Z87.891 Personal history of nicotine dependence; Z79.4 Long term (current) use of insulin; Z79.82 Long term (current) use of aspirin; Z79.899 Other long term (current) drug therapy; Z66 Do not resuscitate
CPT/HCPCS: 0241U; 36415; 36600; 71045; 71250; 80048; 80053; 80202; 81001; 82040; 82803; 82947; 83605; 83735; 83880; 84100; 84145; 84484; 85025; 85027; 85379; 85610; 85730; 86140; 87040; 87070; 87086; 87088; 87186; 87205; 93005; 93306; 93308; 93970; 94002; 94003; 94660; 94664; 94799; 97110; 97163; 99285; 99497; C1758; J0171; J0282; J1650; J2250; J2370; J2543; J3010; J3370; P9047; Q9957